=== PATIENT | female | born 1975 | race Hispanic/Latino ===

== ENCOUNTER 2018-11-18 20:33 | Emergency (ER) | payer OTHER, SELFPAY ==
[2018-11-18] MEDS ORDERED: ONDANSETRON 4 MG/2 ML VIAL ONE (21:35)
[2018-11-18] MEDS ORDERED: NA CHLORIDE 0.9% 1,000 ML ONE (21:35)
[2018-11-18] MEDS ORDERED: KETOROLAC 30 MG/ML INJ ONE (21:35)
[2018-11-18 21:40] LABS: Urine Blood 3+ (NEG); Urine Glucose NEGATIVE (NEG); Urine Protein NEGATIVE (NEG); Urine Specific Gravity 1.025 (1.005-1.030)
[2018-11-18 22:13] LABS: Absolute Lymphocytes (CBC) 3.7 K/uL (0.7-4.9); Basophils % 0.5 % (0-1.3); Hematocrit 42.1 % (36.0-45.0); Lymphocytes % 32.9 % (15.3-44.8); MPV 9.9 fL (7.6-11.3); RBC Red Blood Cell Count 4.43 M/uL (3.86-4.86)
[2018-11-18 22:32] LABS: ALT/SGPT 32 U/L (12-78); AST/SGOT 18 U/L (15-37); Albumin 3.9 g/dL (3.4-5.0); Alkaline Phosphatase 107 U/L (45-117); BUN Blood Urea Nitrogen 16 mg/dL (7-18); Bicarbonate 27 mmol/L (21-32); Bilirubin Direct < 0.1 mg/dL (0-0.2); Bilirubin Total 0.2 mg/dL (0.2-1.0); Glucose Level 98 mg/dL (74-106); Lipase 81 U/L (73-393); Protein, Total 7.8 g/dL (6.4-8.2); Sodium Level 140 mmol/L (136-145)
[2018-11-18 22:43] LABS: Urine Bacteria LOADED /HPF (<20); Urine Culture Reflex Order NOT NEEDED
--- NOTE | 2018-11-19 00:18 | EDPHYS ---
Physician Documentation [facility] Name: Becka Lorenzo Age: 43 yrs Sex: Female : 1975 Arrival Date: 11/18/2018 Time: 20:37 Bed 24 Private MD: ED Physician Moncho Aranda HPI: 11/19 00:25 This 43 yrs old Female presents to ER via Ambulatory with complaints of kb Abdominal Pain. 00:25 The patient presents with abdominal pain in the upper abdomen. Onset: The kb symptoms/episode began/occurred 1 week(s) ago, and became worse. The symptoms do not radiate. Associated signs and symptoms: Pertinent positives: nausea and vomiting, Pertinent negatives: anorexia, blood in stools, chest pain, constipation, diarrhea, dysuria, fever, headache, hematuria, palpitations, shortness of breath, vaginal discharge, vomiting blood. The symptoms are described as constant. Modifying factors: The symptoms are alleviated by nothing, the symptoms are aggravated by nothing. Severity of pain: At its worst the pain was moderate in the emergency department the pain has improved mildly. The patient has not experienced similar symptoms in the past. The patient has not recently seen a physician. Pt reports upper abd pain for a week. Reports nausea and vomiting today. . 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 - Social history:: Smoking status: Patient/guardian denies using tobacco. - Ebola Screening: : Patient denies travel to an Ebola-affected area in the 21 days before illness onset. ROS: 11/19 00:25 Constitutional: Negative for fever, chills, and weight loss, ENT: Negative for injury, kb pain, and discharge, Neck: Negative for injury, pain, and swelling, Cardiovascular: Negative for chest pain, palpitations, and edema, Respiratory: Negative for shortness of breath, cough, wheezing, and pleuritic chest pain, Back: Negative for injury and pain, : Negative for injury, bleeding, discharge, and swelling, MS/Extremity: Negative for injury and deformity, Skin: Negative for injury, rash, and discoloration, Neuro: Negative for headache, weakness, numbness, tingling, and seizure. Abdomen/GI: Positive for abdominal pain, nausea and vomiting, Negative for diarrhea, constipation, abdominal cramps, abdominal distension, anorexia. Exam: 00:25 Constitutional: This is a well developed, well nourished patient who is awake, alert, kb and in no acute distress. Head/Face: Normocephalic, atraumatic. ENT: Nares patent. No nasal discharge, no septal abnormalities noted. Tympanic membranes are normal and external auditory canals are clear. Oropharynx with no redness, swelling, or masses, exudates, or evidence of obstruction, uvula midline. Mucous membranes moist. Neck: Trachea midline, no thyromegaly or masses palpated, and no cervical lymphadenopathy. Supple, full range of motion without nuchal rigidity, or vertebral point tenderness. No Meningismus. Chest/axilla: Normal chest wall appearance and motion. Nontender with no deformity. No lesions are appreciated. Cardiovascular: Regular rate and rhythm with a normal S1 and S2. No gallops, murmurs, or rubs. Normal PMI, no JVD. No pulse deficits. Respiratory: Lungs have equal breath sounds bilaterally, clear to auscultation and percussion. No rales, rhonchi or wheezes noted. No increased work of breathing, no retractions or nasal flaring. Back: No spinal tenderness. No costovertebral tenderness. Full range of motion. Skin: Warm, dry with normal turgor. Normal color with no rashes, no lesions, and no evidence of cellulitis. MS/ Extremity: Pulses equal, no cyanosis. Neurovascular intact. Full, normal range of motion. Neuro: Awake and alert, GCS 15, oriented to person, place, time, and situation. Cranial nerves II-XII grossly intact. Motor strength 5/5 in all extremities. Sensory grossly intact. Cerebellar exam normal. Normal gait. 00:25 Abdomen/GI: Inspection: obese Bowel sounds: normal, in all quadrants, Palpation: soft, in all quadrants, mild abdominal tenderness, in the left lower quadrant, moderate abdominal tenderness, in the right upper quadrant and right lower quadrant. Vital Signs: 11/18 20:50 BP 117 / 65; Pulse 83; Resp 18; Temp 97.0; Pulse Ox 96% on R/A; Weight 107.5 kg (R); aj1 Height 5 ft. 2 in. (157.48 cm) (R); Pain 8/10; 23:58 BP 106 / 66; Pulse 66; Resp 16; Temp 98.1; Pulse Ox 99% on R/A; Pain 4/10; ch 11/19 00:38 BP 110 / 72; Pulse 62; Resp 14; Temp 98.1; Pulse Ox 99% on R/A; Pain 2/10; ch 11/18 20:50 Body Mass Index 43.35 (107.50 kg, 157.48 cm) aj1 11/18 23:58 Vitals Checked by Raudel sherwood MDM: 21:19 Patient medically screened. kb 11/19 00:27 Data reviewed: vital signs, nurses notes. Data interpreted: Pulse oximetry: on room air kb is 99 %. Interpretation: normal. Counseling: I had a detailed discussion with the patient and/or guardian regarding: the historical points, exam findings, and any diagnostic results supporting the discharge/admit diagnosis, lab results, radiology results, the need for outpatient follow up, a family practitioner, a family mediator, to return to the emergency department if symptoms worsen or persist or if there are any questions or concerns that arise at home. 11/18 21:32 Order name: Urine Microscopic Only; Complete Time: 22:48 mg2 11/18 21:33 Order name: Basic Metabolic Panel; Complete Time: 22:33 kb 11/18 21:33 Order name: CBC with Diff; Complete Time: 22:16 kb 11/18 21:33 Order name: Hepatic Function; Complete Time: 22:33 kb 11/18 21:33 Order name: Lipase; Complete Time: 22:33 kb 11/18 21:33 Order name: Urine Culture mg2 11/18 21:32 Order name: US Abdomen Limited kb 11/18 21:34 Order name: Urine Dipstick--Ancillary (enter results); Complete Time: 21:41 mw2 11/18 21:34 Order name: Urine --Ancillary (enter results); Complete Time: 21:41 [facility] 11/18 21:55 Order name: CT Abd/Pelvis - IV Contrast Only 11/18 21:33 Order name: IV Saline Lock; Complete Time: 22:02 kb 11/18 21:33 Order name: Labs collected and sent; Complete Time: 22:01 kb Administered Medications: 11/18 22:01 Drug: NS 0.9% 1000 ml Route: IV; Rate: 1000 ml; Site: right forearm; mg2 11/19 00:01 Follow up: IV Status: Completed infusion; IV Intake: 1000ml 11/18 22:01 Drug: Zofran 4 mg Route: IVP; Site: right forearm; mg2 11/19 00:01 Follow up: Response: No adverse reaction 11/18 22:01 Drug: TORadol - Ketorolac 15 mg Route: IVP; Site: right forearm; mg2 11/19 00:01 Follow up: Response: No adverse reaction 00:32 Drug: Macrobid 100 mg Route: PO; 00:32 Follow up: Response: No adverse reaction Disposition: 11/19/18 00:18 Discharged to Home. Impression: Urinary tract infection, site not specified. - Condition is Stable. - Discharge Instructions: Urinary Tract Infection, Adult, [id number]. - Prescriptions for Macrobid 100 mg Oral Capsule - take 1 capsule by ORAL route every 12 hours for 10 days; 20 capsule. - Medication Reconciliation Form, Thank You Letter, Antibiotic Education, Prescription Opioid Use form. - Follow up: Emergency Department; When: As needed; Reason: Worsening of condition. Follow up: Private Physician; When: 2 - 3 days; Reason: Recheck today's complaints, Continuance of care, Re-evaluation by your physician. Signatures: Dispatcher [employer] EDMA Karen Estes, OIL DISPATCHER-C OIL DISPATCHER-Ckb Estela Harrington, RN RN Angie Canas, RN RN aj1 Héctor Gupta RN RN mg2 Corrections: (The following items were deleted from the chart) 00:40 00:18 11/19/2018 00:18 Discharged to Home. Impression: Urinary tract infection, site ch not specified. Condition is Stable. Forms are Medication Reconciliation Form, Thank You Letter, Antibiotic Education, Prescription Opioid Use. Follow up: Emergency Department; When: As needed; Reason: Worsening of condition. Follow up: Private Physician; When: 2 - 3 days; Reason: Recheck today's complaints, Continuance of care, Re-evaluation by your physician. kb
--- NOTE | 2018-11-19 00:18 | ER ---
Nurse's Notes [facility] Name: Becka Lorenzo Age: 43 yrs Sex: Female : 1975 Arrival Date: 11/18/2018 Time: 20:37 Bed 24 Private MD: Diagnosis: Urinary tract infection, site not specified Presentation: 11/18 20:47 Presenting complaint: Patient states: "My stomach started hurting and I get really aj1 nauseated and then I started feeling like I was going to pass out because the pain in my stomach was so excruciating, and I started vomiting then I felt my stomach getting bigger" Reports burning sensation to RUQ, LUQ and epigastric region that started this morning that has gotten progressively worse as the day has gone on. Denies diarrhea. Denies fever . States that her pain is less severe right now that it has been previously. Transition of care: patient was not received from another setting of care. Onset of symptoms was November 18, 2018. Risk Assessment: Do you want to hurt yourself or someone else? Patient reports no desire to harm self or others. Initial Sepsis Screen: Does the patient meet any 2 criteria? No. Patient's initial sepsis screen is negative. Does the patient have a suspected source of infection? Yes: Acute abdominal pain. Care prior to arrival: None. 20:47 Method Of Arrival: Ambulatory aj1 20:47 Acuity: LOW 3 aj1 Triage Assessment: 20:50 General: Appears in no apparent distress. comfortable, Behavior is calm, cooperative, aj1 appropriate for age. Pain: Complains of pain in epigastric area, right upper quadrant and left upper quadrant Pain radiates to right lower quadrant and left lower quadrant Pain currently is 8 out of 10 on a pain scale. Neuro: Level of Consciousness is awake, alert, obeys commands. Cardiovascular: Patient's skin is warm and dry. Respiratory: Airway is patent Respiratory effort is even, unlabored, Respiratory pattern is regular, symmetrical. GI: Reports upper abdominal pain, bloating, nausea, vomiting, Patient currently denies diarrhea. 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 - Social history:: Smoking status: Patient/guardian denies using tobacco. - Ebola Screening: : Patient denies travel to an Ebola-affected area in the 21 days before illness onset. Screenin:19 Abuse screen: Denies threats or abuse. Denies injuries from another. Nutritional mg2 screening: No deficits noted. Tuberculosis screening: No symptoms or risk factors identified. Fall Risk IV access (20 points). Assessment: 23:15 General: Appears in no apparent distress. comfortable, Behavior is calm, cooperative. mg2 Pain: Complains of pain in abdomen Pain does not radiate. Pain currently is 5 out of 10 on a pain scale. Quality of pain is described as aching, Pain began gradually, Is intermittent. Neuro: Level of Consciousness is awake, alert, obeys commands, Oriented to person, place, time, situation. Cardiovascular: Capillary refill < 3 seconds Patient's skin is warm and dry. Respiratory: Airway is patent Respiratory effort is even, unlabored, Respiratory pattern is regular, symmetrical. GI: No signs and/or symptoms were reported involving the gastrointestinal system. Bowel sounds present X 4 quads. Abd is soft and non tender X 4 quads. : Urine is see urine dip. EENT: No signs and/or symptoms were reported regarding the EENT system. Derm: Skin is intact, is healthy with good turgor, Skin is pink, warm \\T\\ dry. normal. Musculoskeletal: Circulation, motion, and sensation intact. Capillary refill < 3 seconds. 23:58 Reassessment: Patient appears in no apparent distress at this time. Patient and/or ch family updated on plan of care and expected duration. Pain level reassessed. Patient is alert, oriented x 3, equal unlabored respirations, skin warm/dry/pink. Patient states feeling better. Patient states symptoms have improved. 11/19 00:38 Reassessment: Patient appears in no apparent distress at this time. Patient and/or ch family updated on plan of care and expected duration. Pain level reassessed. Patient is alert, oriented x 3, equal unlabored respirations, skin warm/dry/pink. Patient states feeling better. Patient states symptoms have improved. Vital Signs: 11/18 20:50 BP 117 / 65; Pulse 83; Resp 18; Temp 97.0; Pulse Ox 96% on R/A; Weight 107.5 kg (R); aj1 Height 5 ft. 2 in. (157.48 cm) (R); Pain 8/10; 23:58 BP 106 / 66; Pulse 66; Resp 16; Temp 98.1; Pulse Ox 99% on R/A; Pain 4/10; ch 11/19 00:38 BP 110 / 72; Pulse 62; Resp 14; Temp 98.1; Pulse Ox 99% on R/A; Pain 2/10; ch 11/18 20:50 Body Mass Index 43.35 (107.50 kg, 157.48 cm) [facility] 11/18 23:58 Vitals Checked by Raudel sherwood ED Course: 20:37 Patient arrived in ED. ds1 20:50 Triage completed. aj1 20:50 Arm band placed on Patient placed in waiting room, Patient notified of wait time. aj1 21:18 Karen Estes FNP-C [facility]. kb 21:18 Moncho Aranda MD is Attending Physician. kb 21:21 Héctor Gupta, EREN is Primary Nurse. mg2 21:55 US Abdomen Limited In Process Unspecified. EDMS 22:07 Radiology exam delayed due to lab results not completed at this time. (BUN/Creatinine). vm2 23:20 Patient has correct armband on for positive identification. mg2 23:20 No provider procedures requiring assistance completed. Inserted saline lock: 20 gauge mg2 in right antecubital area, using aseptic technique. Blood collected. 23:48 CT Abd/Pelvis - IV Contrast Only In Process Unspecified. EDMS 23:58 No apparent distress. Resting quietly. awaiting ct results. 23:58 Pulse ox on. NIBP on. Warm blanket given. 08 00:38 No apparent distress. Resting quietly. 00:38 IV discontinued, intact, bleeding controlled, No redness/swelling at site. Pressure dressing applied. Administered Medications: 11/18 22:01 Drug: NS 0.9% 1000 ml Route: IV; Rate: 1000 ml; Site: right forearm; mg2 11/19 00:01 Follow up: IV Status: Completed infusion; IV Intake: 1000ml 11/18 22:01 Drug: Zofran 4 mg Route: IVP; Site: right forearm; mg2 11/19 00:01 Follow up: Response: No adverse reaction 11/18 22:01 Drug: TORadol - Ketorolac 15 mg Route: IVP; Site: right forearm; mg2 11/19 00:01 Follow up: Response: No adverse reaction 00:32 Drug: Macrobid 100 mg Route: PO; 00:32 Follow up: Response: No adverse reaction Intake: 00:01 IV: 1000ml; Total: 1000ml. Outcome: 00:18 Discharge ordered by . francis 00:38 Discharged to home ambulatory, with family. 00:38 Condition: improved 00:38 Discharge instructions given to patient, family, Instructed on discharge instructions, follow up and referral plans. Demonstrated understanding of instructions, follow-up care, medications, Prescriptions given X 1. 00:40 Patient left the ED. Addendum: 11/21/2018 08:07 Addendum: Culture Results: Positive urine culture. No further action required. Bacteria i w sensitive to prescribed antibiotic. Signatures: Dispatcher [employer] EDMS Karen Estes, SENIOR HARDWARE DESIGN ENGINEER-C SENIOR HARDWARE DESIGN ENGINEER-CkEstela Chavez, RN RN Angie Canas RN RN ajDea Traylor ds1 Sera Carreno RN RN Caroline Salas Michele, RN RN mg2
[2018-11-19] MEDS ORDERED: NITROFURAN MACRO 100 MG CAP PO ONE (00:33)
[2018-11-19 01:42] VITALS: TEMP 98.1; O2SAT 99
[2018-11-19 01:44] VITALS: BP 110/72
--- NOTE | 2018-11-19 08:59 | RAD REPORT ---
EXAM DESCRIPTION: US - Abdomen Exam Limited - 11/18/2018 9:54 pm CLINICAL HISTORY: Abdominal pain. COMPARISON: None. FINDINGS: The gallbladder is not well distended limiting evaluation somewhat. The gallbladder wall is not thickened. A gallstone is not seen. The biliary tree is normal caliber. IMPRESSION: No abnormality displayed
--- NOTE | 2018-11-22 15:10 | RAD REPORT ---
EXAM DESCRIPTION: CT - Abdomen Pelvis W Contrast - 11/18/2018 11:47 pm CLINICAL HISTORY: The patient is 43 years old and is Female; ABD PAIN TECHNIQUE: Axial computed tomography images of the abdomen and pelvis with intravenous contrast. S agittal and coronal reformatted images were created and reviewed. This CT exam was performed using one or more of the following dose reduction techniques: automated exposure control, adjustment of t he mA and/or kV according to patient size, and/or use of iterative reconstruction technique. COMPARISON: CT of the abdomen and pelvis January 24, 2016. FINDINGS: LUNG BASES: Unremarkable. No mass. No consolidation. ABDOMEN: LIVER: A 0.8 cm low attenuating lesion within the right hepatic lobe suggestive of cysts is pres ent. This is unchanged from prior exam. No follow-up is recommended. GALLBLADDER AND BILE DUCTS: No calcified stones. No ductal dilation. PANCREAS: No ductal dilation. No mass. SPLEEN: Unremarkable. ADRENALS: Unremarkable. No mass. KIDNEYS AND URETERS: Punctate left intrarenal calcifications are present. Punctate right intrare nal calcification is noted. There is no hydronephrosis or hydroureter of either kidney. The kidneys e nhance symmetrically. STOMACH AND BOWEL: The stomach is decompressed. The small bowel is normal in caliber. Stool is p resent throughout the colon. There is no mucosal thickening or evidence of bowel obstruction. PELVIS: APPENDIX: The appendix is normal in caliber without surrounding inflammation. BLADDER: The bladder is not well distended. REPRODUCTIVE: Unremarkable as visualized. ABDOMEN and PELVIS: INTRAPERITONEAL SPACE: Unremarkable. No free air. No significant fluid collection. BONES/JOINTS: No acute fracture. SOFT TISSUES: The soft tissues are normal. VASCULATURE: Unremarkable. No abdominal aortic aneurysm. LYMPH NODES: Unremarkable. No enlarged lymph nodes. IMPRESSION: 1. Bilateral nephrolithiasis without obstruction. 2. Normal appendix. No bowel obstruction. Electronically signed by: Taylor Blood MD 11/18/2018 11:55 PM CDT Due to temporary technical issues with the PACS/Fluency reporting system, reports are being signed by the in house radiologist as a courtesy to ensure prompt reporting. The interpreting radiologist is f ully responsible for the content of the report.
== END 2018-11-19 00:40 | disposition home or self-care (01) ==
LOC: ER 20:33
DX: N39.0 Urinary tract infection, site not specified (principal); Z88.5 Allergy status to narcotic agent
CPT/HCPCS: 36415; 74177; 76705; 80048; 80076; 81003; 81015; 81025; 83690; 85025; 87077; 87086; 87088; 87186; 96361; 96374; 96375; 99284; J2405; J7030; Q9967

== ENCOUNTER 2019-04-20 05:03 | Emergency (ER) | payer BC, SELFPAY ==
[2019-04-20 05:52] LABS: Absolute Lymphocytes (CBC) 3.6 K/uL (0.7-4.9); Basophils % 0.6 % (0-1.3); Hematocrit 40.9 % (36.0-45.0); Lymphocytes % 31.4 % (15.3-44.8); RBC Red Blood Cell Count 4.38 M/uL (3.86-4.86)
[2019-04-20] MEDS ORDERED: FAMOTIDINE 20 MG/2 ML VIAL IV ONE (05:53)
[2019-04-20 05:57] LABS: ALT/SGPT 28 U/L (12-78); AST/SGOT 17 U/L (15-37); Albumin 3.9 g/dL (3.4-5.0); Alkaline Phosphatase 97 U/L (45-117); BUN Blood Urea Nitrogen 20 mg/dL (7-18); Bicarbonate 25 mmol/L (21-32); Bilirubin Direct < 0.1 mg/dL (0-0.2); Bilirubin Total 0.2 mg/dL (0.2-1.0); Glucose Level 111 mg/dL (74-106); Lipase 84 U/L (73-393); Potassium 4.1 mmol/L (3.5-5.1); Protein, Total 7.9 g/dL (6.4-8.2); Sodium Level 138 mmol/L (136-145)
[2019-04-20 07:13] LABS: Urine Blood NEGATIVE (NEG); Urine Glucose NEGATIVE (NEG); Urine Protein NEGATIVE (NEG); Urine pH 5.5 (5.0-7.0)
--- NOTE | 2019-04-20 07:41 | RAD REPORT ---
EXAM DESCRIPTION: CT - Abdomen Pelvis W Contrast - 04/20/2019 6:38 am CLINICAL HISTORY: ABD PAIN, right lower quadrant pain Reporting was delayed due to technical difficulties with the overnight radiology service COMPARISON: CT study November 18 TECHNIQUE: Biphasic, helical CT imaging of the abdomen and pelvis was performed following 100 ml non -ionic IV contrast. No oral contrast administered. All CT scans are performed using dose optimization technique as appropriate and may include automated exposure control or mA/KV adjustment according to patient size. FINDINGS: No suspicious findings in the lung bases. The liver, spleen, and pancreas show no suspicious findings. Gallbladder and biliary tree are also wi thout suspicious finding. Symmetric renal function is seen with no hydronephrosis or suspicious renal mass. Bilateral nonobstru cting calculi again noted. No pyelonephritis or acute parenchymal process. No bladder abnormalities. No adrenal abnormalities. No dilated bowel loops or bowel wall thickening. The appendix is normal. There are no acute GI findin gs identifiable. No free air, free fluid or inflammatory stranding. No hernia, mass or bulky lymphad enopathy. Uterus and ovaries show no suspicious findings. No suspicious bony findings. Motion degradation limits many of the images. IMPRESSION: No appendicitis or other acute GI finding. No acute or GIFT OFFICER process. No abnormality seen that would explain the right lower quadrant pain megan manny. No suspicious changes from the November 18 study.
--- NOTE | 2019-04-20 09:02 | ER ---
Nurse's Notes [facility] Name: Becka Lorenzo Age: 43 yrs Sex: Female : 1975 Arrival Date: 04/20/2019 Time: 05:05 Bed 19 Private MD: Diagnosis: Upper abdominal pain, unspecified Presentation: 04/20 05:17 Presenting complaint: Patient states: she has been having a variety of symptoms after bb her three weeks ago she can't sleep but tonight she started having burning in her stomach after drinking a "cup" of crown and she is having right lower abdominal pain. Transition of care: patient was not received from another setting of care. Onset of symptoms was March 26, 2019. Risk Assessment: Do you want to hurt yourself or someone else? Patient reports no desire to harm self or others. Initial Sepsis Screen: Does the patient meet any 2 criteria? No. Patient's initial sepsis screen is negative. Does the patient have a suspected source of infection? No. Patient's initial sepsis screen is negative. Care prior to arrival: None. 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 - Social history:: Smoking status: Patient/guardian denies using tobacco, Patient uses alcohol, occasionally. - Ebola Screening: : No symptoms or risks identified at this time. Screenin:20 Abuse screen: Denies threats or abuse. Denies injuries from another. Nutritional ca1 screening: No deficits noted. Tuberculosis screening: No symptoms or risk factors identified. Fall Risk IV access (20 points). Assessment: 05:20 General: Appears distressed, comfortable, Behavior is calm, cooperative, appropriate ca1 for age. Pain: Complains of pain in epigastric area, right upper quadrant, left upper quadrant and right lower quadrant Pain currently is 7 out of 10 on a pain scale. Quality of pain is described as burning, Is intermittent. Neuro: Level of Consciousness is awake, alert, obeys commands, Oriented to person, place, time, situation, Appropriate for age. Cardiovascular: Heart tones S1 S2 present Capillary refill < 3 seconds Patient's skin is warm and dry. Respiratory: Airway is patent Respiratory effort is even, unlabored, Respiratory pattern is regular, symmetrical, Breath sounds are clear bilaterally. GI: Abdomen is round non-distended, Bowel sounds present X 4 quads. Abd is soft and non tender X 4 quads. GI: Reports. : No deficits noted. No signs and/or symptoms were reported regarding the genitourinary system. EENT: No deficits noted. No signs and/or symptoms were reported regarding the EENT system. Derm: Skin is intact, is healthy with good turgor, Skin is pink, warm \\T\\ dry. Musculoskeletal: Circulation, motion, and sensation intact. Capillary refill < 3 seconds, Range of motion: intact in all extremities. 06:48 Reassessment: Patient appears in no apparent distress at this time. Patient is alert, ca1 oriented x 3, equal unlabored respirations, skin warm/dry/pink. 06:59 Reassessment: Patient appears in no apparent distress at this time. report received sg from Jonelle JASON, pt is a 43 yr F, c abd pain x 3 months on and off, aa\\T\\ox4 and ambulatory, awaiting results at this time. Vital Signs: 05:20 BP 105 / 53; Pulse 88; Resp 16 S; Temp 98.6(O); Pulse Ox 100% on R/A; Weight 103.42 kg bb (R); Height 5 ft. 10 in. (177.80 cm) (R); Pain 8/10; 06:48 BP 111 / 55; Pulse 67; Resp 17 S; Pulse Ox 95% on R/A; ca1 05:20 Body Mass Index 32.71 (103.42 kg, 177.80 cm) bb ED Course: 05:05 Patient arrived in ED. ds1 05:11 Jonelle Decker RN is Primary Nurse. ca1 05:14 Franc Contreras MD is Attending Physician. kdr 05:20 Triage completed. bb 05:20 Arm band placed on Patient placed in an exam room, on a stretcher, on pulse oximetry. bb Family accompanied patient. 05:20 Patient has correct armband on for positive identification. Placed in gown. Bed in low ca1 position. Call light in reach. Side rails up X 1. Pulse ox on. NIBP on. Warm blanket given. 05:25 No provider procedures requiring assistance completed. Initial lab(s) drawn, by me, ca1 sent to lab. Inserted saline lock: 22 gauge in right forearm, using aseptic technique. Blood collected. 05:56 Urine collected: clean catch specimen, clear, Amount Voided: 90mL. ca1 06:38 CT Abd/Pelvis - IV Contrast Only In Process Unspecified. EDMS 07:34 Primary Nurse role handed off by Jonelle Decker RN bd 08:06 Fabian Martinez, RN is Primary Nurse. sg Administered Medications: 05:51 Drug: Pepcid 20 mg Route: IVP; Site: right forearm; ca1 06:57 Follow up: Response: No adverse reaction; Pain is decreased ca1 Outcome: 09:01 Discharge ordered by . pankaj 09:15 Patient left the ED. sg Signatures: Dispatcher [employer] EDMS Breanne Mederos bd Fabian Martinez, RN RN sg Franc Contreras MD MD kdr Sanford, Demi ds1 Colleen Bryant RN RN bb Tish Kovacs MD MD ma2 Acob, Cheryl, EREN RN ca1
--- NOTE | 2019-04-20 09:03 | EDPHYS ---
Physician Documentation [facility] Name: Becka Lorenzo Age: 43 yrs Sex: Female : 1975 Arrival Date: 04/20/2019 Time: 05:05 Bed 19 Private MD: ED Physician Franc Contreras HPI: 04/20 07:23 This 43 yrs old Female presents to ER via Ambulatory with complaints of kdr Abdominal burning, Pelvic Pain. 07:23 The patient presents with abdominal pain in the epigastric area, right lower quadrant, kdr Right flank. Onset: The symptoms/episode began/occurred acutely, The array of issues have been ongoing since her about three months ago. She has not been evaluated. The symptoms radiate to the right flank. Associated signs and symptoms: Pertinent positives: nausea, Pertinent negatives: blood in stools, chest pain, constipation, diarrhea, dysuria, fever, hematuria, palpitations, shortness of breath, vaginal discharge, vomiting, vomiting blood. The symptoms are described as achy, crampy, dull, intermittent, vague, waxing/waning. Modifying factors: The symptoms are alleviated by nothing, the symptoms are aggravated by nothing. Severity of pain: At its worst the pain was mild moderate just prior to arrival, in the emergency department the pain has improved mildly. The patient has experienced similar episodes in the past, multiple times, but today's symptoms are worse, more painful. The patient has not recently seen a physician. 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 - Social history:: Smoking status: Patient/guardian denies using tobacco, Patient uses alcohol, occasionally. - Ebola Screening: : No symptoms or risks identified at this time. ROS: 07:29 Constitutional: Negative for fever, chills, and weight loss, Eyes: Negative for injury, kdr pain, redness, and discharge, Neck: Negative for injury, pain, and swelling, Cardiovascular: Negative for chest pain, palpitations, and edema, Respiratory: Negative for shortness of breath, cough, wheezing, and pleuritic chest pain, Back: Negative for injury and pain, : Negative for injury, bleeding, discharge, and swelling, MS/Extremity: Negative for injury and deformity, Skin: Negative for injury, rash, and discoloration, Neuro: Negative for headache, weakness, numbness, tingling, and seizure activity. Psych: Negative for depression, anxiety, suicide ideation, homicidal ideation, and hallucinations, Allergy/Immunology: Negative for hives, rash, and allergies, Endocrine: Negative for neck swelling, polydipsia, polyuria, polyphagia, and marked weight changes, Hematologic/Lymphatic: Negative for swollen nodes, abnormal bleeding, and unusual bruising. 07:29 Abdomen/GI: Positive for abdominal pain, nausea, Negative for black/tarry stool, rectal pain, rectal bleeding, bowel incontinence. Exam: 07:29 Constitutional: This is a well developed, well nourished patient who is awake, alert, kdr and in no acute distress. Head/Face: Normocephalic, atraumatic. Eyes: Pupils equal round and reactive to light, extra-ocular motions intact. Lids and lashes normal. Conjunctiva and sclera are non-icteric and not injected. Cornea within normal limits. Periorbital areas with no swelling, redness, or edema. Neck: Trachea midline, no thyromegaly or masses palpated, and no cervical lymphadenopathy. Supple, full range of motion without nuchal rigidity, or vertebral point tenderness. No Meningismus. Chest/axilla: Normal chest wall appearance and motion. Nontender with no deformity. No lesions are appreciated. Cardiovascular: Regular rate and rhythm with a normal S1 and S2. No gallops, murmurs, or rubs. Normal PMI, no JVD. No pulse deficits. Respiratory: Lungs have equal breath sounds bilaterally, clear to auscultation and percussion. No rales, rhonchi or wheezes noted. No increased work of breathing, no retractions or nasal flaring. Back: No spinal tenderness. No costovertebral tenderness. Full range of motion. Skin: Warm, dry with normal turgor. Normal color with no rashes, no lesions, and no evidence of cellulitis. Neuro: Awake and alert, GCS 15, oriented to person, place, time, and situation. Cranial nerves II-XII grossly intact. Motor strength 5/5 in all extremities. Sensory grossly intact. Cerebellar exam normal. Normal gait. Psych: Awake, alert, with orientation to person, place and time. Behavior, mood, and affect are within normal limits. 07:29 Abdomen/GI: Inspection: obese Bowel sounds: active, all quadrants, Palpation: soft, mild abdominal tenderness, in the epigastric area, posterior aspect of right lateral abdomen, anterior aspect of right lateral abdomen and right lower quadrant. Vital Signs: 05:20 BP 105 / 53; Pulse 88; Resp 16 S; Temp 98.6(O); Pulse Ox 100% on R/A; Weight 103.42 kg bb (R); Height 5 ft. 10 in. (177.80 cm) (R); Pain 8/10; 06:48 BP 111 / 55; Pulse 67; Resp 17 S; Pulse Ox 95% on R/A; ca1 05:20 Body Mass Index 32.71 (103.42 kg, 177.80 cm) bb MDM: 09:00 Differential diagnosis: Endometriosis, gastritis, gastroesophageal reflux disease, ma2 pancreatitis. Data reviewed: vital signs, nurses notes. Counseling: I had a detailed discussion with the patient and/or guardian regarding: the historical points, exam findings, and any diagnostic results supporting the discharge/admit diagnosis, the presence of at least one elevated blood pressure reading (>120/80) during this emergency department visit, the need for outpatient follow up. Response to treatment: the patient's symptoms have resolved after treatment. 09:01 Patient medically screened. ma2 04/20 05:14 Order name: Basic Metabolic Panel; Complete Time: 07:04 kdr 04/20 05:14 Order name: CBC with Diff; Complete Time: 07:04 kdr 04/20 05:14 Order name: Creatinine for Radiology; Complete Time: 05:58 kdr 04/20 05:14 Order name: Hepatic Function; Complete Time: 07: kdr 04/20 05:14 Order name: Lipase; Complete Time: 07:04 kdr 04/20 06:07 Order name: Urine Dipstick--Ancillary (enter results) ar5 04/20 05:14 Order name: IV Saline Lock; Complete Time: 05:29 kdr 04/20 05:14 Order name: Labs collected and sent; Complete Time: 05:29 kdr 04/20 05:46 Order name: CT Abd/Pelvis - IV Contrast Only; Complete Time: 08:38 kdr 04/20 06:07 Order name: Urine --Ancillary (enter results) ar5 Administered Medications: 05:51 Drug: Pepcid 20 mg Route: IVP; Site: right forearm; ca1 06:57 Follow up: Response: No adverse reaction; Pain is decreased ca1 Disposition: 04/20/19 09:01 Discharged to Home. Impression: Upper abdominal pain, unspecified. - Condition is Stable. - Discharge Instructions: Abdominal Pain, Adult, [id number], Form - Late to Work or School. - Prescriptions for Ativan 0.5 mg Oral Tablet - take 1 tablet by ORAL route every 8 hours As needed; 20 tablet. Zofran 4 mg Oral Tablet - take 1 tablet by ORAL route every 12 hours As needed; 20 tablet. Pepcid 20 mg Oral Tablet - take 1 tablet by ORAL route once daily for 10 days; 10 tablet. - Work release form, Medication Reconciliation Form, Thank You Letter, Antibiotic Education, Prescription Opioid Use form. - Follow up: Private Physician; When: Tomorrow; Reason: Continuance of care. Signatures: Dispatcher [employer] EDFabian Gresham RN RN sg Franc Contreras MD MD kdr Ballard, Brenda, RN RN bb Tish Kovacs MD MD ma2 Jonelle Decker RN RN ca1 Corrections: (The following items were deleted from the chart) 09:15 09:01 04/20/2019 09:01 Discharged to Home. Impression: Upper abdominal pain, sg unspecified. Condition is Stable. Forms are Work release form, Medication Reconciliation Form, Thank You Letter, Antibiotic Education, Prescription Opioid Use. Follow up: Private Physician; When: Tomorrow; Reason: Continuance of care. ma2
[2019-04-20 09:23] VITALS: TEMP 98.6
[2019-04-20 09:24] VITALS: BP 111/55; O2SAT 95
== END 2019-04-20 09:15 | disposition home or self-care (01) ==
LOC: ER 05:03
DX: R10.10 Upper abdominal pain, unspecified (principal); R11.0 Nausea; Z88.1 Allergy status to other antibiotic agents; Z88.5 Allergy status to narcotic agent
CPT/HCPCS: 85025; 80048; 36415; 81025; 80076; 81003; 83690; 74177; 96374; 99284; Q9967

== ENCOUNTER 2019-05-13 18:47 | Emergency (ER) | payer BC ==
[2019-05-13 20:13] LABS: Urine Blood TRACE (NEG); Urine Glucose NEGATIVE (NEG); Urine Protein NEGATIVE (NEG)
--- NOTE | 2019-05-13 20:20 | RAD REPORT ---
EXAM DESCRIPTION: RAD - Chest Single View - 05/13/2019 7:54 pm CLINICAL HISTORY: CHEST PAIN COMPARISON: Chest Pa And Lat (2 Views) dated 09/13/2015; CHEST SINGLE VIEW dated 02/16/2015 TECHNIQUE: AP portable chest image was obtained 05/13/2019 7:54 pm . FINDINGS: Lungs are clear. Heart and vasculature are normal. No measurable pleural effusion and no p neumothorax. No acute bony abnormality seen. No acute aortic findings suspected. IMPRESSION: No acute cardiopulmonary process.
[2019-05-13 20:32] LABS: Absolute Lymphocytes (CBC) 2.6 K/uL (0.7-4.9); Basophils % 0.3 % (0-1.3); Hematocrit 42.8 % (36.0-45.0); Lymphocytes % 26.2 % (15.3-44.8); MPV 9.6 fL (7.6-11.3); RBC Red Blood Cell Count 4.55 M/uL (3.86-4.86)
[2019-05-13 20:33] LABS: Protime INR 1.06
[2019-05-13] MEDS ORDERED: LORazepam 2 MG/ML VIAL ONE (20:36)
[2019-05-13 20:44] LABS: ALT/SGPT 49 U/L (12-78); AST/SGOT 20 U/L (15-37); Albumin 3.8 g/dL (3.4-5.0); Alkaline Phosphatase 98 U/L (45-117); BUN Blood Urea Nitrogen 9 mg/dL (7-18); Bicarbonate 27 mmol/L (21-32); Bilirubin Direct < 0.1 mg/dL (0-0.2); Bilirubin Total 0.3 mg/dL (0.2-1.0); Glucose Level 88 mg/dL (74-106); Magnesium 2.2 mg/dL (1.8-2.4); NT PRO-BNP 86 pg/mL (<125); Potassium 3.7 mmol/L (3.5-5.1); Protein, Total 7.8 g/dL (6.4-8.2); Sodium Level 140 mmol/L (136-145); Troponin (Emerg Dept Use Only) < 0.02 ng/mL (0.0-0.045)
--- NOTE | 2019-05-13 21:51 | ER ---
Nurse's Notes [facility] Name: Becka Lorenzo Age: 43 yrs Sex: Female : 1975 Arrival Date: 05/13/2019 Time: 18:50 Bed 13 Private MD: Diagnosis: Other chest pain Presentation: 05/13 18:55 Presenting complaint: Patient states: "my about 4 days ago and I've aa5 been having anxiety since then but I've been trying to manage it by myself". Pt states "my TAPEMAN prescribed me excitalopram and I took it for the first time today around 8am and as the day is going by I think it made me more anxious instead of helping me". Pt states "my stomach hurts and my chest hurts". Transition of care: patient was not received from another setting of care. Onset of symptoms was May 13, 2019. Risk Assessment: Do you want to hurt yourself or someone else? Patient reports no desire to harm self or others. Initial Sepsis Screen: Does the patient meet any 2 criteria? No. Patient's initial sepsis screen is negative. Does the patient have a suspected source of infection? No. Patient's initial sepsis screen is negative. Care prior to arrival: None. 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 - Coronavirus screen:: The patient has NOT traveled to [place], [place], or [place] in the past 14 days. The patient has NOT had contact with known/suspected case of Coronavirus?. - Social history:: Smoking status: Patient denies any tobacco usage or history of. Patient/guardian denies using street drugs. - Ebola Screening: : No symptoms or risks identified at this time. Screenin:30 Abuse screen: Denies threats or abuse. Denies injuries from another. Nutritional aj1 screening: No deficits noted. Tuberculosis screening: No symptoms or risk factors identified. 22:08 Fall Risk None identified. iw Assessment: 19:30 General: Appears in no apparent distress. comfortable, Behavior is cooperative, aj1 anxious. Pain: Complains of pain in chest Pain radiates to abdomen Pain currently is 5 out of 10 on a pain scale. Quality of pain is described as pressure, Pain began today. Neuro: Level of Consciousness is awake, alert, obeys commands, Oriented to person, place, time, situation, Speech is normal, Facial symmetry appears normal. Cardiovascular: Reports chest pain, Heart tones S1 S2 present Patient's skin is warm and dry. Respiratory: Airway is patent Respiratory effort is even, unlabored, Respiratory pattern is regular, symmetrical, Breath sounds are clear bilaterally. Denies cough, shortness of breath. GI: No signs and/or symptoms were reported involving the gastrointestinal system. : No signs and/or symptoms were reported regarding the genitourinary system. EENT: No signs and/or symptoms were reported regarding the EENT system. Derm: No signs and/or symptoms reported regarding the dermatologic system. Skin is pink, warm \\T\\ dry. normal. Musculoskeletal: No signs and/or symptoms reported regarding the musculoskeletal system. Circulation, motion, and sensation intact. 20:30 Reassessment: Patient appears in no apparent distress at this time. No changes from aj1 previously documented assessment. Patient and/or family updated on plan of care and expected duration. Pain level reassessed. Patient is alert, oriented x 3, equal unlabored respirations, skin warm/dry/pink. 21:05 Reassessment: Patient given IV Ativan, states that she feels like the pressure has been aj1 lifted off of her chest, states that she feels much better\\E\\. Vital Signs: 18:57 BP 111 / 53; Pulse 89; Resp 18 S; Temp 97.9(TE); Pulse Ox 97% on R/A; Weight 99.34 kg aa5 (R); Height 5 ft. 2 in. (157.48 cm) (R); Pain 6/10; 20:00 BP 116 / 75; Pulse 92; Resp 18; Pulse Ox 97% ; aj1 21:00 BP 110 / 52; Pulse 74; Resp 19; Pulse Ox 100% on R/A; aj1 18:57 Body Mass Index 40.06 (99.34 kg, 157.48 cm) aa5 ED Course: 18:50 Patient arrived in ED. ag5 18:57 Triage completed. aa5 18:57 Arm band placed on. aa5 19:30 Patient has correct armband on for positive identification. Bed in low position. Call aj1 light in reach. Side rails up X 1. Family at bedside. certified credit counselor on. Pulse ox on. NIBP on. 19:30 No provider procedures requiring assistance completed. Patient maintains SpO2 aj1 saturation greater than 95% on room air. 19:32 Angie Canas, RN is Primary Nurse. aj1 19:36 Edward العلي PA is PHCP. cp 19:36 Edward Casarez MD is Attending Physician. cp 19:54 XRAY Chest (1 view) In Process Unspecified. EDMS 20:10 Inserted saline lock: 22 gauge in right antecubital area, using aseptic technique. Blood collected. 21:58 Primary Nurse role handed off by Angie Canas RN iw 21:58 Sera Carreno, EREN is Primary Nurse. iw 22:08 IV discontinued, intact, bleeding controlled, No redness/swelling at site. Pressure iw dressing applied. Administered Medications: 20:53 Drug: Ativan 0.5 mg Route: IVP; Site: right antecubital; aj1 22:09 Follow up: Response: No adverse reaction iw Outcome: 21:50 Discharge ordered by MD. cp 22:08 Discharged to home ambulatory. iw 22:08 Condition: good 22:08 Discharge instructions given to patient, family, Instructed on discharge instructions, follow up and referral plans. medication usage, Demonstrated understanding of instructions, follow-up care, medications, Prescriptions given X 1. 22:10 Patient left the ED. iw Signatures: Dispatcher [employer] EDMS Angie Canas, RN RN aj1 Sera Carreno RN RN iw Katelyn Rizzo RN RN aa5 Edward العلي PA PA cp [place], Winsy Carey Macias [facility] Corrections: (The following items were deleted from the chart) 18:59 18:55 Presenting complaint: Patient states: "my about 4 days ago aa5 and I've been having anxiety since then but I've been trying to manage it by myself". Pt states "my TAPEMAN prescribed me excitalopram and I took it for the first time today around 8am and as the day is going by I think it made me more anxious instead of helping me". aa5
--- NOTE | 2019-05-13 21:51 | EDPHYS ---
Physician Documentation [facility] Name: Becka Lorenzo Age: 43 yrs Sex: Female : 1975 Arrival Date: 05/13/2019 Time: 18:50 Bed 13 Private MD: ED Physician Edward Casarez HPI: 05/13 19:45 This 43 yrs old Female presents to ER via Ambulatory with complaints of cp Anxiety. 19:45 The patient or guardian reports chest pain that is located primarily in the anterior cp chest wall, bilaterally. Onset: today. The pain does not radiate. 19:45 The chest pain is described as a heaviness. cp 19:45 Associated signs and symptoms: Pertinent positives: abdominal pain, palpitations. cp Duration: The patient or guardian reports a single episode, that is still ongoing, and unchanged. Patient reports she was prescribed escitalopram 10 mg and took first dose today, shortly afterward she started having chest heaviness and feeling like heart was skipping beats. 19:45 Patient reports she has been suffering from anxiety since passing of 4 months cp ago. 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 - Coronavirus screen:: The patient has NOT traveled to [place], [place], or [place] in the past 14 days. The patient has NOT had contact with known/suspected case of Coronavirus?. - Social history:: Smoking status: Patient denies any tobacco usage or history of. Patient/guardian denies using street drugs. - Ebola Screening: : No symptoms or risks identified at this time. ROS: 19:50 Constitutional: Negative for body aches, chills, fever. cp 19:50 Eyes: Negative for injury, pain, redness, and discharge. cp 19:50 ENT: Negative for drainage from ear(s), ear pain, sore throat, difficulty swallowing, difficulty handling secretions. 19:50 Cardiovascular: Positive for palpitations, chest heaviness, Negative for edema. 19:50 Respiratory: Negative for cough, wheezing. 19:50 Abdomen/GI: Positive for abdominal pain, of the upper abdomen, Negative for vomiting, diarrhea, constipation. 19:50 Back: Negative for radiated pain. 19:50 Skin: Negative for rash. 19:50 Neuro: Negative for altered mental status, dizziness, headache, syncope, weakness. 19:50 Psych: Positive for anxiety, Negative for depression, suicide gesture, suicidal ideation. 19:50 All other systems are negative. Exam: 20:00 Constitutional: The patient appears in no acute distress, alert, awake, cp non-diaphoretic, non-toxic, well developed, well nourished, obese. 20:00 Head/Face: Normocephalic, atraumatic. cp 20:00 Eyes: Periorbital structures: appear normal, Pupils: equal, round, and reactive to cp light and accomodation, Extraocular movements: intact throughout, Conjunctiva: normal, no exudate, no injection, Sclera: no appreciated abnormality, Lids and lashes: appear normal, bilaterally. 20:00 ENT: External ear(s): are unremarkable, Nose: is normal, Mouth: is normal, Posterior pharynx: is normal, airway is patent, no erythema, no exudate. 20:00 Chest/axilla: Inspection: normal, Palpation: is normal, no crepitus, no tenderness. 20:00 Cardiovascular: Rate: normal, Rhythm: regular, Heart sounds: murmur, not appreciated, Edema: is not appreciated, JVD: is not appreciated. 20:00 Respiratory: the patient does not display signs of respiratory distress, Respirations: normal, no use of accessory muscles, no retractions, no splinting, no tachypnea, labored breathing, is not present, Breath sounds: are clear throughout, no decreased breath sounds, no stridor, no wheezing. 20:00 Abdomen/GI: Inspection: abdomen appears normal, Bowel sounds: active, all quadrants, cp Palpation: abdomen is soft and non-tender, in all quadrants, voluntary guarding, is not appreciated, involuntary guarding, is not appreciated. 20:00 Back: pain, is absent, ROM is normal. 20:00 Skin: no rash present. 20:00 Neuro: Orientation: to person, place \T\ time. Mentation: is normal, Motor: moves all fours, strength is normal, Sensation: is normal. 20:33 ECG was reviewed by the Attending Physician. cp Vital Signs: 18:57 BP 111 / 53; Pulse 89; Resp 18 S; Temp 97.9(TE); Pulse Ox 97% on R/A; Weight 99.34 kg aa5 (R); Height 5 ft. 2 in. (157.48 cm) (R); Pain 6/10; 20:00 BP 116 / 75; Pulse 92; Resp 18; Pulse Ox 97% ; aj1 21:00 BP 110 / 52; Pulse 74; Resp 19; Pulse Ox 100% on R/A; aj1 18:57 Body Mass Index 40.06 (99.34 kg, 157.48 cm) aa5 MDM: 19:38 Patient medically screened. cp 21:50 The patient was not given aspirin in the Emergency Department. cp 21:50 Data reviewed: vital signs, nurses notes, lab test result(s), EKG, radiologic studies, cp plain films. Test interpretation: by ED physician or midlevel provider: ECG, plain radiologic studies. Response to treatment: the patient's symptoms have markedly improved after treatment. ED course: VSS. Patient reports symptoms markedly improved. Will discharge to home for continued monitoring. 05/13 19:37 Order name: Basic Metabolic Panel; Complete Time: 21:06 cp 05/13 19:37 Order name: CBC with Diff; Complete Time: 21:06 cp 05/13 19:37 Order name: LFT's; Complete Time: 21:06 cp 05/13 19:37 Order name: Magnesium; Complete Time: 21:06 cp 05/13 19:37 Order name: NT PRO-BNP; Complete Time: 21:06 cp 05/13 19:37 Order name: PT-INR; Complete Time: 21:06 cp 05/13 19:37 Order name: Troponin (emerg Dept Use Only); Complete Time: 21:06 cp 05/13 19:37 Order name: XRAY Chest (1 view); Complete Time: 21:06 cp 05/13 19:37 Order name: EKG; Complete Time: 19:39 cp 05/13 19:37 Order name: Cardiac monitoring; Complete Time: 20:18 cp 05/13 19:37 Order name: EKG - Nurse/Tech; Complete Time: 20:35 cp 05/13 19:58 Order name: Urine Dipstick--Ancillary (enter results); Complete Time: 21:06 sp 05/13 19:58 Order name: Test Urine - POC; Complete Time: 21:06 sp 05/13 19:37 Order name: IV Saline Lock; Complete Time: 20:17 cp 05/13 19:37 Order name: Labs collected and sent; Complete Time: 20:17 cp 05/13 19:37 Order name: O2 Per Protocol; Complete Time: 20:17 cp 05/13 19:37 Order name: O2 Sat Monitoring; Complete Time: 20:17 cp 05/13 19:38 Order name: Urine Dipstick-Ancillary (obtain specimen); Complete Time: 19:56 cp 05/13 19:38 Order name: Urine Test (obtain specimen); Complete Time: 19:56 cp EC:33 Rate is 73 beats/min. Rhythm is regular. GA interval is normal. QRS interval is normal. cp QT interval is normal. T waves are Inverted in leads V2, V3. Interpreted by me. Reviewed by me. Administered Medications: 20:53 Drug: Ativan 0.5 mg Route: IVP; Site: right antecubital; aj1 22:09 Follow up: Response: No adverse reaction iw Disposition: 05/14 02:32 Co-signature as Attending Physician, Edward Casarez MD I agree with the assessment and nancy plan of care. Disposition: 05/13/19 21:50 Discharged to Home. Impression: Other chest pain. - Condition is Stable. - Discharge Instructions: Nonspecific Chest Pain, Aspirin and Your Heart. - Prescriptions for Ativan 0.5 mg Oral Tablet - take 1 tablet by ORAL route every 8 hours As needed; 20 tablet. - Medication Reconciliation Form, Thank You Letter, Antibiotic Education, Prescription Opioid Use form. - Follow up: Private Physician; When: 2 - 3 days; Reason: Recheck today's complaints. - Problem is new. - Symptoms have improved. Signatures: Dispatcher [employer] Angie Mcconnell RN RN aj1 Edward Casarez MD MD cha Williams, Irene, RN RN iw Calderon, Audri RN RN aa5 Edward العلي PA PA cp Corrections: (The following items were deleted from the chart) 05/13 22:10 21:50 05/13/2019 21:50 Discharged to Home. Impression: Other chest pain. Condition is iw Stable. Forms are Medication Reconciliation Form, Thank You Letter, Antibiotic Education, Prescription Opioid Use. Follow up: Private Physician; When: 2 - 3 days; Reason: Recheck today's complaints. Problem is new. Symptoms have improved. cp 23:20 19:50 This 43 yrs old Female presents to ER via Ambulatory with complaints of cp Anxiety. cp
[2019-05-13 22:15] VITALS: TEMP 97.9
[2019-05-13 22:18] VITALS: BP 110/52; O2SAT 100
--- NOTE | 2019-05-14 23:16 | EKG ---
Test Date: 2019-05-13 Test Time: 20:26:23 [employer] Agent: YANDEL MEASUREMENT RESULTS: Intervals: Rate: 73 CA: 150 QRSD: 74 QT: 416 QTc: 458 [place]: P: 56 CA: 150 QRS: 50 T: 28 INTERPRETIVE STATEMENTS: Normal sinus rhythm with sinus arrhythmia Normal ECG Compared to ECG 12/19/2010 16:49:33 Sinus bradycardia no longer present Electronically Signed On 05-14-19 23:15:13 [employer]INE [employer] SURVEYOR by Nahun Jaquez
== END 2019-05-13 22:10 | disposition home or self-care (01) ==
LOC: ER 18:47
DX: R07.89 Other chest pain (principal); Z88.1 Allergy status to other antibiotic agents; Z88.6 Allergy status to analgesic agent
CPT/HCPCS: 36415; 71045; 80048; 80076; 81003; 81025; 83735; 83880; 84484; 85025; 85610; 93005; 96374; 99285

== ENCOUNTER 2019-10-25 16:24 | Emergency (ER) | payer BC, OTHER ==
[2019-10-25] MEDS ORDERED: NA CHLORIDE 0.9% 1,000 ML ONE (17:43)
[2019-10-25 18:08] LABS: Absolute Lymphocytes (CBC) 2.4 K/uL (0.7-4.9); Basophils % 0.6 % (0-1.3); Hematocrit 42.4 % (36.0-45.0); Lymphocytes % 26.8 % (15.3-44.8); MPV 9.4 fL (7.6-11.3); RBC Red Blood Cell Count 4.51 M/uL (3.86-4.86)
[2019-10-25 18:22] LABS: ALT/SGPT 39 U/L (12-78); AST/SGOT 21 U/L (15-37); Albumin 3.6 g/dL (3.4-5.0); Alkaline Phosphatase 87 U/L (45-117); BUN Blood Urea Nitrogen 11 mg/dL (7-18); Bicarbonate 26 mmol/L (21-32); Bilirubin Direct 0.1 mg/dL (0-0.2); Bilirubin Total 0.4 mg/dL (0.2-1.0); Glucose Level 98 mg/dL (74-106); Lipase 87 U/L (73-393); Potassium 3.3 mmol/L (3.5-5.1); Protein, Total 7.6 g/dL (6.4-8.2); Sodium Level 139 mmol/L (136-145)
--- NOTE | 2019-10-25 19:13 | ER ---
Nurse's Notes [facility] Name: Becka Lorenzo Age: 44 yrs Sex: Female : 1975 Arrival Date: 10/25/2019 Time: 16:29 Bed 16 Private MD: Arnaud James Diagnosis: Shortness of breath;SARS-associated coronavirus as the cause of diseases classified elsewhere Presentation: 10/24 16:38 Chief complaint: Patient states: I started really weak and extremely tired about 2 ca1 weeks ago. I tested positive for COVID on the . I started feeling better. But today, I started feeling SOB, weak again like I was going to pass out. . Reports N/V/Diarrhea and persistent cough. Coronavirus screen: Surgical mask placed on patient. Patient moved to private room, placed in contact and droplet isolation with eye protection until further assessment. Patient reports a cough. Patient reports shortness of breath or difficulty breathing. Patient denies measured and/or subjective temperature greater than 100.4F prior to today's visit. Patient denies travel on a cruise ship or to a country the [facility] currently lists as an affected area. Patient reports contact with known and/or suspected case of COVID-19. Boss was positive 2 wks prior to testing positive. Ebola Screen: Patient negative for fever greater than or equal to 101.5 degrees Fahrenheit, and additional compatible Ebola Virus Disease symptoms Patient denies exposure to infectious person. Patient denies travel to an Ebola-affected area in the 21 days before illness onset. No symptoms or risks identified at this time. Initial Sepsis Screen: Does the patient meet any 2 criteria? No. Patient's initial sepsis screen is negative. Does the patient have a suspected source of infection? No. Patient's initial sepsis screen is negative. Risk Assessment: Do you want to hurt yourself or someone else? Patient reports no desire to harm self or others. Onset of symptoms was October 25, 2019. 16:38 Method Of Arrival: Ambulatory ca1 16:38 Acuity: LOW 3 ca1 Triage Assessment: 17:26 General: Appears in no apparent distress. comfortable. Pain: Complains of pain in ls4 general Pain currently is 0 out of 10 on a pain scale. Noted to be flacc 0. 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 - Social history:: Smoking status: Patient denies any tobacco usage or history of. Screenin:27 Abuse screen: Denies threats or abuse. Denies injuries from another. Nutritional ls4 screening: No deficits noted. Tuberculosis screening: No symptoms or risk factors identified. Fall Risk None identified. Assessment: 16:50 General: Appears uncomfortable, Behavior is calm, cooperative. Pain: Complains of pain ls4 in generalized Pain currently is 3 out of 10 on a pain scale. Neuro: No deficits noted. Cardiovascular: Capillary refill < 3 seconds Patient's skin is warm and dry. Respiratory: Airway is patent Respiratory effort is even, unlabored, Respiratory pattern is regular, Breath sounds are clear bilaterally. GI: No deficits noted. No signs and/or symptoms were reported involving the gastrointestinal system. : No deficits noted. No signs and/or symptoms were reported regarding the genitourinary system. Derm: Skin is pink, warm \T\ dry. Musculoskeletal: No deficits noted. No signs and/or symptoms reported regarding the musculoskeletal system. 18:00 Reassessment: Patient appears in no apparent distress at this time. Patient and/or ls4 family updated on plan of care and expected duration. Pain level reassessed. Patient is alert, oriented x 3, equal unlabored respirations, skin warm/dry/pink. 19:10 Reassessment: Patient appears in no apparent distress at this time. Patient and/or ls4 family updated on plan of care and expected duration. Pain level reassessed. Patient is alert, oriented x 3, equal unlabored respirations, skin warm/dry/pink. Vital Signs: 16:38 BP 112 / 66; Pulse 84; Resp 18 S; Temp 97.7(TE); Pulse Ox 98% on R/A; Weight 88.9 kg ca1 (R); Height 5 ft. 2 in. (157.48 cm) (R); 17:00 BP 116 / 72; Pulse 78; Resp 16; Pulse Ox 99% on R/A; Pain 3/10; ls4 18:00 BP 112 / 70; Pulse 81; Resp 18; Pulse Ox 98% on R/A; Pain 3/10; ls4 19:00 BP 110 / 70; Pulse 79; Resp 18; Pulse Ox 99% on R/A; Pain 3/10; ls4 16:38 Body Mass Index 35.85 (88.90 kg, 157.48 cm) ca1 ED Course: 16:29 Patient arrived in ED. mr 16:29 Arnaud James DO is Private Physician. mr 16:44 Triage completed. ca1 16:44 Arm band placed on right wrist. ca1 16:50 Caren Romero, RN is Primary Nurse. ls4 17:19 Martinez Sepulveda PA is PHCP. jr8 17:19 Ander Prasad MD is Attending Physician. jr8 17:41 XRAY Chest (1 view) In Process Unspecified. EDMS 17:58 Initial lab(s) drawn, by me, sent to lab. Inserted saline lock: 22 gauge in right 5 forearm, using aseptic technique. 17:59 Patient has correct armband on for positive identification. Bed in low position. Call [facility] light in reach. Pulse ox on. NIBP on. 18:00 Lipase Sent. 5 18:00 Hepatic Function Sent. [facility] 18:00 CBC with Diff Sent. 5 18:00 Basic Metabolic Panel Sent. 5 19:12 Arnaud James DO is Referral Physician. jr8 19:27 No provider procedures requiring assistance completed. ls4 19:45 IV discontinued, intact, bleeding controlled, No redness/swelling at site. Pressure ls4 dressing applied. Administered Medications: 18:34 Drug: NS 0.9% 1000 ml Route: IV; Rate: 1000 ml; Site: left forearm; ls4 19:40 Follow up: IV Status: Completed infusion; IV Intake: 1000ml ls4 19:00 Drug: Potassium Chloride 20 mEq Route: PO; ls4 19:26 Follow up: Response: No adverse reaction; Marked relief of symptoms ls4 Intake: 19:40 IV: 1000ml; Total: 1000ml. ls4 Outcome: 19:12 Discharge ordered by . jr8 19:45 Discharged to home ambulatory. ls4 19:45 Condition: stable 19:45 Discharge instructions given to patient, Instructed on discharge instructions, follow up and referral plans. medication usage, Demonstrated understanding of instructions, follow-up care, medications, Prescriptions given X 1. 19:45 Patient left the ED. ls4 Signatures: Dispatcher [employer] EDNM Glenda Moreno mr Martinez Sepulveda PA PA jr8 Hollie Acuna [facility] Caren Romero RN RN ls4 Jonelle Decker RN RN ca1 Corrections: (The following items were deleted from the chart) 19:21 19:21 Potassium Chloride 20 mEq PO ls4 ls4
--- NOTE | 2019-10-25 19:13 | EDPHYS ---
Physician Documentation [facility] Name: Becka Lorenzo Age: 44 yrs Sex: Female : 1975 Arrival Date: 10/25/2019 Time: 16:29 Bed 16 Private MD: Jacob [facility] ED Physician Ander Prasad HPI: 10/24 19:09 This 44 yrs old Female presents to ER via Ambulatory with complaints of jr8 Shorntess of breath. 19:09 Patient stated that she tested positive for covid back on the 11 of October. Had been jr8 recovering but not doing a lot. Stated that today she was going to try and get out. Started to become short of breath. Wanted to be reevaluated at that time . Onset: The symptoms/episode began/occurred acutely, today. Severity of symptoms: At their worst the symptoms were mild in the emergency department the symptoms are unchanged. The patient has not experienced similar symptoms in the past. The patient has not recently seen a physician. 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 - Social history:: Smoking status: Patient denies any tobacco usage or history of. ROS: 19:09 Eyes: Negative for injury, pain, redness, and discharge, ENT: Negative for injury, jr8 pain, and discharge, Neck: Negative for injury, pain, and swelling, Cardiovascular: Negative for chest pain, palpitations, and edema, Abdomen/GI: Negative for abdominal pain, nausea, vomiting, diarrhea, and constipation, Back: Negative for injury and pain, MS/Extremity: Negative for injury and deformity, Skin: Negative for injury, rash, and discoloration, Neuro: Negative for headache, weakness, numbness, tingling, and seizure. 19:09 Respiratory: Positive for dyspnea on exertion, shortness of breath. Exam: 19:09 Eyes: Pupils equal round and reactive to light, extra-ocular motions intact. Lids and jr8 lashes normal. Conjunctiva and sclera are non-icteric and not injected. Cornea within normal limits. Periorbital areas with no swelling, redness, or edema. ENT: Nares patent. No nasal discharge, no septal abnormalities noted. Tympanic membranes are normal and external auditory canals are clear. Oropharynx with no redness, swelling, or masses, exudates, or evidence of obstruction, uvula midline. Mucous membranes moist. Neck: Trachea midline, no thyromegaly or masses palpated, and no cervical lymphadenopathy. Supple, full range of motion without nuchal rigidity, or vertebral point tenderness. No Meningismus. Cardiovascular: Regular rate and rhythm with a normal S1 and S2. No gallops, murmurs, or rubs. Normal PMI, no JVD. No pulse deficits. Respiratory: Lungs have equal breath sounds bilaterally, clear to auscultation and percussion. No rales, rhonchi or wheezes noted. No increased work of breathing, no retractions or nasal flaring. Abdomen/GI: Soft, non-tender, with normal bowel sounds. No distension or tympany. No guarding or rebound. No evidence of tenderness throughout. Back: No spinal tenderness. No costovertebral tenderness. Full range of motion. Skin: Warm, dry with normal turgor. Normal color with no rashes, no lesions, and no evidence of cellulitis. MS/ Extremity: Pulses equal, no cyanosis. Neurovascular intact. Full, normal range of motion. Neuro: Awake and alert, GCS 15, oriented to person, place, time, and situation. Cranial nerves II-XII grossly intact. Motor strength 5/5 in all extremities. Sensory grossly intact. Cerebellar exam normal. Normal gait. Vital Signs: 16:38 BP 112 / 66; Pulse 84; Resp 18 S; Temp 97.7(TE); Pulse Ox 98% on R/A; Weight 88.9 kg ca1 (R); Height 5 ft. 2 in. (157.48 cm) (R); 17:00 BP 116 / 72; Pulse 78; Resp 16; Pulse Ox 99% on R/A; Pain 3/10; ls4 18:00 BP 112 / 70; Pulse 81; Resp 18; Pulse Ox 98% on R/A; Pain 3/10; ls4 19:00 BP 110 / 70; Pulse 79; Resp 18; Pulse Ox 99% on R/A; Pain 3/10; ls4 16:38 Body Mass Index 35.85 (88.90 kg, 157.48 cm) ca1 MDM: 17:19 Patient medically screened. jr8 19:11 Data reviewed: vital signs, nurses notes, lab test result(s), radiologic studies, plain jr8 films. Data interpreted: Pulse oximetry: on room air is 98 %. Interpretation: normal. Counseling: I had a detailed discussion with the patient and/or guardian regarding: the historical points, exam findings, and any diagnostic results supporting the discharge/admit diagnosis, lab results, radiology results, the need for outpatient follow up, a family practitioner, to return to the emergency department if symptoms worsen or persist or if there are any questions or concerns that arise at home. ED course: Patient with stable normal VS. Labs stable. CXR with signs consistent of covid. Will add prednisone. Knows to come back if worse . 10/24 17:20 Order name: Basic Metabolic Panel; Complete Time: 18:28 [facility] 10/24 17:20 Order name: CBC with Diff; Complete Time: 18:28 [facility] 10/24 17:20 Order name: Hepatic Function; Complete Time: 18:28 [facility] 10/24 17:20 Order name: Lipase; Complete Time: 18:28 [facility] 10/24 17:20 Order name: XRAY Chest (1 view) [facility] 10/24 17:20 Order name: IV Saline Lock; Complete Time: 17:58 [facility] 10/24 17:20 Order name: Labs collected and sent; Complete Time: 17:58 jr8 Administered Medications: 18:34 Drug: NS 0.9% 1000 ml Route: IV; Rate: 1000 ml; Site: left forearm; ls4 19:40 Follow up: IV Status: Completed infusion; IV Intake: 1000ml ls4 19:00 Drug: Potassium Chloride 20 mEq Route: PO; ls4 19:26 Follow up: Response: No adverse reaction; Marked relief of symptoms ls4 Disposition: 10/25/19 19:12 Discharged to Home. Impression: Shortness of breath, SARS-associated coronavirus as the cause of diseases classified elsewhere. - Condition is Stable. - Discharge Instructions: Severe Acute Respiratory Syndrome (SARS), Shortness of Breath. - Prescriptions for prednisone 10 mg Oral tablet - take 1 tablet by ORAL route 2 times per day for 14 days; 28 tablet. - Medication Reconciliation Form, Thank You Letter, Antibiotic Education, Prescription Opioid Use form. - Follow up: Arnaud James DO; When: 1 week; Reason: Recheck today's complaints, Continuance of care, Re-evaluation by your physician. - Problem is new. - Symptoms have improved. Addendum: 10/27/2019 21:22 Co-signature as Attending Physician, Ander Prasad MD Did not see or evaluate patient. p s1 I was available in the ED for consultation. Signature for administrative purposes. . Signatures: Dispatcher [employer] EDMS Martinez Sepulveda PA PA jr8 Ander Prasad MD MD ps1 Caren Romero, RN RN ls4 Jonelle Decker, RN RN ca1 Corrections: (The following items were deleted from the chart) 10/24 19:11 19:09 This 44 yrs old Female presents to ER via Ambulatory with complaints of jr8 Weakness, Abdominal Pain, Vomiting. jr8 19:45 19:12 10/25/2019 19:12 Discharged to Home. Impression: Shortness of breath; ls4 SARS-associated coronavirus as the cause of diseases classified elsewhere. Condition is Stable. Forms are Medication Reconciliation Form, Thank You Letter, Antibiotic Education, Prescription Opioid Use. Follow up: Arnaud James; When: 1 week; Reason: Recheck today's complaints, Continuance of care, Re-evaluation by your physician. Problem is new. Symptoms have improved. jr8
[2019-10-25] MEDS ORDERED: POTASSIUM CL SA 10 MEQ TAB PO ONE (19:21)
[2019-10-25 20:25] VITALS: TEMP 97.7
[2019-10-25 20:29] VITALS: BP 110/70; O2SAT 99
--- NOTE | 2019-10-25 21:54 | RAD REPORT ---
EXAM DESCRIPTION: Mary Lou Single View10/25/2019 9:22 pm CLINICAL HISTORY: Cough COMPARISON: April 2019 FINDINGS: Mild bilateral pulmonary opacities are suspected The heart is normal size IMPRESSION: Mild bilateral pulmonary opacities are suspected which may indicate a viral pneumonia
--- OUTSIDE RECORDS SUMMARY | 2019-10-26 01:41 | XMS REPORT | Summary of Care ---
:1975 Author Organization [facility] Address [address] [place] [address] Care Team Providers Name Role Phone Pcp, Does Not Have A Primary Care Provider Reason for Visit Reason Comments Results Encounter Details Date Type Department Care Team Description 07/29/2019 Telephone [facility]ESS [facility] Beth Goss, Results [address] [facility] [place] [address] [address] [address] [place] [address] Allergies Active Allergy Reactions Severity Noted Date Comments Hydrocodone Hallucinations 07/28/2019 Morphine Anaphylaxis, Shortness of Breath High 08/04/19 14 documented as of this encounter (statuses as of 07/29/2019) Medications Medication Sig Dispensed Refills Start Date End Date Status ondansetron 4 mg Take 1 tablet by 20 tablet 0 07/28/2019 Active tabletIndications: mouth every 8 Gastroenteritis (eight) hours as needed for Nausea and Vomiting (N/V). documented as of this encounter (statuses as of 07/29/2019) Active Problems No known active problemsdocumented as of this encounter (statuses as of 07/29/2019) Social History Tobacco Use Types Packs/Day Years Used Date Never Smoker Smokeless Tobacco: Never Used Alcohol Use Drinks/Week oz/Week Comments No Sex Assigned at Date Recorded Not on file Job Start Date Occupation Industry Not on file Not on file Not on file Travel History Travel Start Travel End No recent travel history available. documented as of this encounter Last Filed Vital Signs Not on filedocumented in this encounter Plan of Treatment Health Maintenance Due Date Last Done Comments DTaP,Tdap,and Td Vaccines (1 - 1985 Tdap) Breast Cancer Screening 2014 (MAMMOGRAM) PAP SMEAR 08/03/2016 08/03/2013 INFLUENZA VACCINE (#1) 2018 PNEUMOCOCCAL 0-64 YEARS COMBINED Aged Out No longer eligible based on SERIES patient's age to complete this topic documented as of this encounter Results Not on filedocumented in this encounter Insurance Payer Benefit Plan Subscriber ID Effective Dates Phone Address Type / Group BC[place] [employer] [place] [id number] 2019-Nadia [phone] [address] PPO/POS [place] - OUT OF t 7 [id number] [place] [address] documented as of this encounter
--- OUTSIDE RECORDS SUMMARY | 2019-10-26 01:41 | XMS REPORT | Continuity of Care Document ---
:1975 Author Organization [facility] t Address [address] [place] [address] Care Team Providers Name Role Phone Prasad DO Attending Clinician Aurelio GANP Attending Clinician Kyle Goss MD Attending Clinician Pob1, Care Clinic Attending Clinician Unavailable Problems Condition Condition Condition Status Onset Resolution Last Treating Co mments Source Name Details Category Date Date Treatment Clinician Date Morbid Morbid Problem Active [facility] ([facility] - obesity obesity Memoria due to due to l excess excess Outpati calories calories ent Clinics Depression Depression Problem Active [facility] with with [facility] - anxiety anxiety [facility] l [facility] Body mass Body mass Problem Active [facility] index index [facility] - (BMI) (BMI) Memoria 40.0-44.9, 40.0-44.9, l adult adult [facility] Vitamin D Vitamin D Problem Active [facility] deficiency deficiency Lorraine kes - disease disease Memoria l [facility] Allergic Allergic Problem Active [facility] sinusitis sinusitis Luke [facility] - Memoria l [facility] Allergies, Adverse Reactions, Alerts Allergy Allergy Status Severity Reaction(s) Onset Inactive Treating Comm ents Source Name Type Date Date Clinician Morphine Adverse Active Info Not [facility] Sulfate Reaction Available Luke s - Memoria l [facility] Hydrocod Adverse Active Info Not [facility] one-Acet Reaction Available Matthew es - aminophe Memoria n l [facility] Amoxicil Adverse Active yeast [facility] anat Reaction [facility] - [facility]oria l [facility] Medications Ordered Filled Start Stop Current Ordering Indication Dosage Frequency Signature Comments Components Source Medication Medication Date Date Medication? Clinician (SIG) Name Name Keikox Fareedthromax Arnaud [address] [facility] Z-Rd Z-Rd 06-29 James today [facility] - 00:00: 00:00 then 1 Memoria 00 :00 tablet l once a day [facility] Vitamin D3 Vitamin D3 Arnaud [address] [facility] 06-01 James [facility] - 00:00: 00:00 Memoria 00 :00 l [facility] ent Clinics Procedures This patient has no known procedures. Encounters Start End Encounter Admission Attending Care Care Encounter Source Date/Time Date/Time Type Type Clinicians Facility Department ID 2019-10-12 2019-10-13 [id number] 23:48:45 01:31:00 Ander Hurst [id number] [place] [id number] [place] [id number] 2019-07-30 2019-07-30 [facility] [id number] 00:00:00 00:00:00 [facility] [id number] [place] [id number] [facility] [phone] nal [address] 2019-07-29 2019-07-29 Telephone Ana Paula JENSEN [id number] 00:00:00 00:00:00 , Beth ESCOBEDO [id number] [facility] [id number] 2019-07-28 2019-07-28 Urgent Pob1, Acute [facility] [id number] 08:59:05 09:39:16 [facility] [id number] [place] [id number] Professio [phone] nal 044 [address] One 2019-07-01 2019-07-01 [facility] [id number] [address] 13:59:00 13:59:00 [facility] [place] [facility] Family Medicine Medicine [facility] 2019-06-30 2019-06-30 [facility] [id number] 10:00:00 10:00:00 t [facility] 2019-06-01 2019-06-01 [facility] [id number] 08:22:00 08:22:00 t [facility] 2019-05-30 2019-05-30 [facility] [id number] 09:00:00 09:00:00 t [facility] Results This patient has no known results.
--- OUTSIDE RECORDS SUMMARY | 2019-10-26 01:41 | XMS REPORT | Summary of Care ---
:[address] [facility] Address [address] [place] [address] Care Team Providers Name Role Phone Pcp, Does Not Have A Primary Care Provider Reason for Visit Reason Comments Fever x1 week Cough Abdominal Pain Nausea Encounter Details Date Type Department Care Team Description 07/28/2019 Urgent Care [facility] Family Marifer Cazares PA [facility] [place] [address] Gastroenteritis (Primary Dx); [place] [address], Acute Care Clinic Fever, unspecified fever cause [address] [place] [address] Allergies Active Allergy Reactions Severity Noted Date Comments Hydrocodone Hallucinations 07/28/2019 Morphine Anaphylaxis, Shortness of Breath High 08/04/19 14 documented as of this encounter (statuses as of 07/28/2019) Medications Medication Sig Dispensed Refills Start Date End Date Status ondansetron 4 mg Take 1 tablet by 20 tablet 0 07/28/2019 Active tabletIndications: mouth every 8 Gastroenteritis (eight) hours as needed for Nausea and Vomiting (N/V). documented as of this encounter (statuses as of 07/28/2019) Active Problems No known active problemsdocumented as of this encounter (statuses as of 07/28/2019) Social History Tobacco Use Types Packs/Day Years Used Date Never Smoker Smokeless Tobacco: Never Used Alcohol Use Drinks/Week oz/Week Comments No Sex Assigned at Date Recorded Not on file Job Start Date Occupation Industry Not on file Not on file Not on file Travel History Travel Start Travel End No recent travel history available. documented as of this encounter Last Filed Vital Signs Vital Sign Reading Time Taken Comments Blood Pressure 119/78 07/28/2019 9:13 AM CDT Pulse 81 07/28/2019 9:13 AM CDT Temperature 36.9 C (98.5 F) 07/28/2019 9:13 AM CDT Respiratory Rate 18 07/28/2019 9:13 AM CDT Oxygen Saturation 98% 07/28/2019 9:13 AM CDT Inhaled Oxygen Concentration - - Weight 95.3 kg (210 lb) 07/28/2019 9:13 AM CDT Height 157.5 cm (5' 2") 07/28/2019 9:13 AM CDT Body Mass Index 38.41 07/28/2019 9:13 AM CDT documented in this encounter Progress Notes Beth Goss MD - 07/28/2019 9:20 AM CDT Family Medicine Clinic Visit Date: 07/28/2019 CC: Fever (x1 week); Cough; Abdominal Pain; and Nausea HPI: Becka Lorenzo is a 43 year old female presents feeling sick over the weekend. Having some diarrhea, nausea and vomiting. Body aches and fatigue. Subjective fevers. Vomiting for about 3-4 days,about 2 times per day. Loss of taste. Diarrhea with watery stools about 3-4 x per day. 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 No known sick contacts. Reports her six months ago. Home Medications: No current outpatient medications on file. No current facility-administered medications for this visit. 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 Social History Tobacco Use Smoking status: Never Smoker Smokeless tobacco: Never Used Substance Use Topics Alcohol use: No Drug use: Not on file Review of Systems Constitutional: Positive for activity change, appetite change, chills, fatigue and fever. HENT: Positive for congestion and sore throat. Respiratory: Positive for cough and shortness of breath. Gastrointestinal: Positive for abdominal pain, diarrhea, nausea and vomiting. Negative for blood in stool and constipation. Genitourinary: Negative for difficulty urinating. BP 119/78 (BP Location: Right arm) | Pulse 81 | Temp 36.9 C (98.5 F) (Oral) | Resp 18 | Ht 5' 2" (1.575 m) | Wt 210 lb (95.3 kg) | SpO2 98% | BMI 38.41 kg/m Physical Exam Constitutional: She appears well-developed and well-nourished. No distress. HENT: Head: Normocephalic. Eyes: Pupils are equal, round, and reactive to light. Neck: Normal range of motion. Neck supple. No thyromegaly present. Cardiovascular: Normal rate and regular rhythm. No murmur heard. Pulmonary/Chest: Effort normal and breath sounds normal. No respiratory distress. She has no wheezes. Musculoskeletal: Normal range of motion. Lymphadenopathy: She has no cervical adenopathy. Skin: Skin is warm and dry. Capillary refill takes 2 to 3 seconds. No rash noted. Psychiatric: She has a normal mood and affect. Her behavior is normal. Judgment and thought content normal. Nursing note and vitals reviewed. Assessment and Plan: Becka Lorenzo is a 43 year old female presents for: ICD-10-CM ICD-9-CM 1. Fever, unspecified fever cause R50.9 780.60 2. Gastroenteritis K52.9 558.9 Hydration discussed COVID testing was preformed today. Results should be available in next 48 to 72 hours. Patient will be contacted with results for further guidance. Patient is recommended to stay home and self quarantine self and family until results are in. Home care reviewed, OTC medications, hydration, and ER warning signs/symptoms. Is Becka Lorenzo a health care worker? No Or a traveling inventory associate? No Orders Placed This Encounter Procedures POCT GRP A STREP (MOLECULAR) CORONAVIRUS COVID-19 TESTING Beth Goss MD I discussed the plan in detail with Becka Lorenzo. The patient understands her medications, any barriers to compliance have been addressed, and there are no significant side effects. I reconciled medication today. I counseled the patient about appropriate healthy behaviors and home self manag ement. she is able to explain back the plan. A printed AVS with instructions and follow-up recommendations is provided today or is otherwise available on My-Chart. Kayley Herrera MA - 07/28/2019 9:20 AM CDT fever, wet cough, nausea, vomiting, abdominal pain, diarrhea, fatigue, muscle pain, sore throat x 1 wk Chief Complaint Patient presents with Fever Cough Abdominal Pain Nausea BP 119/78 (BP Location: Right arm) | Pulse 81 | Temp 36.9 C (98.5 F) (Oral) | Resp 18 | Ht 5' 2" (1.575 m) | Wt 210 lb (95.3 kg) | SpO2 98% | BMI 38.41 kg/m Patient's Age: [age] year old documented in this encounter Plan of Treatment Name Type Priority Associated Diagnoses Date/Ti me CORONAVIRUS COVID-19 LAB Routine Fever, unspecified f ever 07/28/2019 9:19 AM TESTING cause CDT Name Type Priority Associated Diagnoses Order S chedule CORONAVIRUS COVID-19 LAB Routine Fever, unspecified f ever Expected: 07/28/2019, TESTING cause Expires: 2020 Health Maintenance Due Date Last Done Comments DTaP,Tdap,and Td Vaccines (1 - 1985 Tdap) Breast Cancer Screening 2014 (MAMMOGRAM) PAP SMEAR 08/03/2016 08/03/2013 INFLUENZA VACCINE (#1) 2018 PNEUMOCOCCAL 0-64 YEARS COMBINED Aged Out No longer eligible based on SERIES patient's age to complete this topic documented as of this encounter Procedures Procedure Name Priority Date/Time Associated Diagnosis Comme nts POCT GRP A STREP Routine 07/28/2019 9:29 AM Fever, unspecifie d Results for this (MOLECULAR) CDT fever cause procedure are i n the results section. documented in this encounter Results POCT GRP A STREP (MOLECULAR) (07/28/2019 9:29 AM CDT) Pathologist Sig nature POCT GP A STREP negative Negative - Negative Specimen Swab - THROAT documented in this encounter Visit Diagnoses Diagnosis Gastroenteritis - Primary Other and unspecified noninfectious idalia roenteritis and colitis Fever, unspecified fever cause documented in this encounter Insurance Payer Benefit Plan Subscriber ID Effective Dates Phone Address Type / Group [facility] [id number] 2019-Nadia [phone] [address] PPO/POS [place] - OUT OF t 7 [id number] [place] [address] documented as of this encounter
--- OUTSIDE RECORDS SUMMARY | 2019-10-26 01:42 | XMS REPORT | Summary of Care ---
:1975 Author Organization [facility] Address [address] [place] [address] Care Team Providers Name Role Phone Pcp, Does Not Have A Primary Care Provider Reason for Visit Reason Comments Results Encounter Details Date Type Department Care Team Description 07/30/2019 Telephone [facility] Family Medicine Cassandra Guerrero FNP Results - [id number] [place] [phone] Allergies Active Allergy Reactions Severity Noted Date Comments Hydrocodone Hallucinations 07/28/2019 Morphine Anaphylaxis, Shortness of Breath High 08/04/19 14 documented as of this encounter (statuses as of 07/30/2019) Medications Medication Sig Dispensed Refills Start Date End Date Status ondansetron 4 mg Take 1 tablet by 20 tablet 0 07/28/2019 Active tabletIndications: mouth every 8 Gastroenteritis (eight) hours as needed for Nausea and Vomiting (N/V). documented as of this encounter (statuses as of 07/30/2019) Active Problems No known active problemsdocumented as of this encounter (statuses as of 07/30/2019) Social History Tobacco Use Types Packs/Day Years [...] Type / Group [place] [id number] 2019-Nadia [phone] [address] PPO/POS [place] - OUT OF t 7 [id number] [place] [address] documented as of this encounter
--- OUTSIDE RECORDS SUMMARY | 2019-10-26 01:42 | XMS REPORT | Summary of Care ---
:[address] [facility] Address [address] [place], [place] [id number] Care Team Providers Name Role Phone Pcp, Does Not Have A Primary Care Provider Reason for Visit Reason Comments Body Aches Fever Auth/Cert Status Reason Specialty Diagnoses / Referred By Referred To Procedures Contact Contact Emergency Medicine Diagnoses BODY ACHE, FEVER [facility] Emergency Dept [address] [place] [address] Fax: Encounter Details Date Type Department Care Team Description 10/12/2019 - Emergency [facility]Emergency Ander Prasad DO COVID-19 virus infection (Primary Dx); 10/13/[address] [place] [address]. Cough [address] [facility] [address] [place] [address] [place], [place] [address] Allergies Active Allergy Reactions Severity Noted Date Comments Hydrocodone Hallucinations 07/28/2019 Morphine Anaphylaxis, Shortness of Breath High 08/04/19 14 documented as of this encounter (statuses as of 10/13/2019) Medications Medication Sig Dispensed Refills Start Date End Date Status ondansetron 4 mg Take 1 tablet by 20 tablet 0 07/28/2019 Active tabletIndications: mouth every 8 Gastroenteritis (eight) hours as needed for Nausea and Vomiting (N/V). benzonatate 100 mg Take 1 capsule 14 capsule 0 10/13/2019 Active capsuleIndications: by mouth 3 COVID-19 virus (three) times infection daily as needed for Cough. chlorpheniramine 4 mg Take 1 tablet by 30 tablet 0 10/13/2019 Active tabletIndications: mouth every 6 COVID-19 virus (six) hours as infection needed for Allergies or Runny nose. multivitamin Take 1 capsule 30 capsule 0 10/13/2019 Active capsuleIndications: by mouth daily. COVID-19 virus infection [id number] Take as directed 90 tablet 0 10/13/2019 Active 333-133-8.3 mg for daily dose. TabIndications: COVID-19 virus infection documented as of this encounter (statuses as of 10/13/2019) Active Problems No known active problemsdocumented as of this encounter (statuses as of 10/13/2019) Social History Tobacco Use Types Packs/Day Years Used Date Never Smoker Smokeless Tobacco: Never Used Alcohol Use Drinks/Week oz/Week Comments No Sex Assigned at Date Recorded Not on file Job Start Date Occupation Industry Not on file Not on file Not on file Travel History Travel Start Travel End No recent travel history available. COVID-19 Exposure Response Date Recorded In the last month, have you been in contact with No / Unsure 10/12/2019 11:43 PM CDT someone who was confirmed or suspected to have Coronavirus / COVID-19? documented as of this encounter Last Filed Vital Signs Vital Sign Reading Time Taken Comments Blood Pressure 111/65 10/13/2019 12:00 AM CDT Pulse 80 10/13/2019 12:00 AM CDT Temperature 38.2 C (100.8 F) 10/12/2019 11:45 PM CDT Respiratory Rate 16 10/13/2019 12:00 AM CDT Oxygen Saturation 95% 10/13/2019 12:00 AM CDT Inhaled Oxygen Concentration - - Weight 92.1 kg (203 lb) 10/12/2019 11:45 PM CDT Height 165.1 cm (5' 5") 10/12/2019 11:45 PM CDT Body Mass Index 33.78 10/12/2019 11:45 PM CDT documented in this encounter Discharge Instructions AttachmentsThe following attachments cannot be sent through Care Everywhere. Coronavirus Disease 2019: Caring for Yourself and Others (Slovenian)documented in this encounter Plan of Treatment Health Maintenance Due Date Last Done Comments DTaP,Tdap,and Td Vaccines (1 - 1985 Tdap) Depression Screening 1986 Breast Cancer Screening 2014 (MAMMOGRAM) PAP SMEAR 08/03/2016 08/03/2013 INFLUENZA VACCINE (Season Ended) 2019 PNEUMOCOCCAL 0-64 YEARS COMBINED Aged Out No longer eligible based on SERIES patient's age to complete this topic documented as of this encounter Procedures Procedure Name Priority Date/Time Associated Comments Diagnosis COVID-19 (ID NOW STAT 10/12/2019 11:46 PM Cough Resu lts for this RAPID TESTING) CDT procedure are in the results section. ASSIGNMENT OF Routine 10/12/2019 11:32 PM BENEFITS CDT NOTICE OF PRIVACY Routine 10/12/2019 11:32 PM PRACTICES CDT CONSENT/REFUSAL FOR Routine 10/12/2019 11:32 PM DIAGNOSIS AND CDT TREATMENT documented in this encounter Results COVID-19 (ID NOW RAPID TESTING) (10/12/2019 11:46 PM CDT) SARS-CoV-2 Rapid ID Positive (A) Not Detected [facility] Specimen Swab - NASOPHARYNGEAL SWAB Narrative Performed At [facility] COVID-19 Assay is an isothermal nucleic [facility] acid amplification test intended for the qualitative detection of nucleic acid from SARS-CoV-2 viral RNA in nasopharyngeal (STEREOTYPER APPRENTICE) specimens. It is used under Emergency Use Authorization (EUA) by FDA. The limit of detection (LOD) of the assay is 125 Genome Equivalents/mL. A positive result is indicative of the presence of SARS-CoV-2 RNA. Clinical correlation with patient history and other diagnostic information is necessary to determine patient infection status. A negative (Not Detected) result does not preclude SARS-CoV-2 infection. In patients with clinical symptoms and other tests that are consistent with SARS-CoV-2 infection, negative results should be treated as presumptive negative and a new specimen should be tested with alternative PCR molecular test. Invalid: Please collect a new specimen for repeat patient testing if clinically indicated. Performing Organization Address City/State/Zipcode Phone Number [facility] CLIA: [id number], [address] [place], [place] [address] documented in this encounter Visit Diagnoses Diagnosis COVID-19 virus infection - Primary Cough documented in this encounter Insurance Payer Benefit Plan Subscriber ID Effective Dates Phone Address Type / Group [facility] [id number] 2019-Presbenji [phone] [address] PPO/POS [place] - OUT OF t 7 [id number] [place] [address] documented as of this encounter
== END 2019-10-25 19:45 | disposition home or self-care (01) ==
LOC: ER 16:24
DX: R06.02 Shortness of breath (principal); B97.21 SARS-associated coronavirus as the cause of diseases classified elsewhere; Z88.1 Allergy status to other antibiotic agents; Z88.5 Allergy status to narcotic agent
CPT/HCPCS: 85025; 80048; 36415; 80076; 83690; 71045; 96360; 99284; J7030

== ENCOUNTER 2020-04-15 07:28 | Emergency (ER) | payer BC ==
--- OUTSIDE RECORDS SUMMARY | 2020-04-15 07:30 | XMS REPORT ---
:1975 Author Organization [facility] Address [address] [place], [address] [place] [address] Care Team Providers Name Role Phone Arnaud James Unavailable [phone] PROBLEMS Type Condition ICD9-CM VUK43-EF Onset Condition SNOMED Code Notes Code Code Dates Status Problem Allergic J30.9 Active 78867581 sinusitis Problem Chronic K29.50 Active 3827466 gastritis without bleeding, unspecified gastritis type Problem Depression with F41.8 Active 138783076 anxiety Problem Body mass index Z68.41 Active 828110449 (BMI) 40.0-44.9, adult Problem Morbid (severe) E66.01 Active 43609970608208 obesity due to excess calories Problem Vitamin D E55.9 Active 00685599 deficiency disease ALLERGIES Allergen (clinical drug Drug/Non Drug Allergy Reaction Allergy Type Onset Date Status ingredient) documented on EMR morphine Morphine Sulfate(NDC Unknown Drug Allergy Ac tive Code:[address]-88) acetaminophen / Hydrocodone-Acetamino Unknown Drug Allergy Active hydrocodone phen(NDC Code:[address]-88) amoxicillin Amoxicillin(NDC yeast Drug Allergy Active Code:[address]-79) ENCOUNTERS from 1975 to 2020-03-29 Encounter Location Date Provider Diagnosis [facility] [address] [place], Arnaudmuriel James [facility] [address], of both hands R20.0 ; [place] [address] Vitamin B12 deficiency E53. 8 ; Vitamin D defic iency disease E55.9 ; Fatigue, unspec ified type R53.83 ; P ain, joint, multiple sites M25.50 ; Depres paramjit with anxiety F4 1.8 ; Bereavement due to life event Z63. 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 gastritis witho ut bleeding, unspe cified gastritis type K29.50 IMMUNIZATIONS Vaccine Route Administration Date Status Vitamin B12 (Cyanocobalamin) IM Intramuscular Mar 29, 2020 Ad ministered Kenalog (Triamcinolone) IM Intramuscular June 30, 2019 Adminis tered SOCIAL HISTORY Tobacco Use: Social History Observation Description Date Details (start date - stop date) Never Smoker Sex Assigned At : Social History Observation Description Sex Assigned At Unknown PHQ9 Question Answer Notes Little interest or pleasure in doing things Several days Feeling down, depressed, or hopeless Several days Trouble falling or staying asleep or sleeping too much Sever al days Feeling tired or having little energy Several days Poor appetite or overeating Several days Feeling bad about yourself, or that you are a failure, or campoverde ve Not at all let yourself or your family down Trouble concentrating on things, such as reading the newspap er Not at all or watching television Moving or speaking so slowly that other people could have No t at all noticed; or the opposite, being so fidgety or restless that you have been moving around a lot more than usual Total Score 5 Interpretation Mild Depression Thoughts that you would be better off or of hurting Not at all yourself in some way Alcohol Screen Question Answer Notes Did you have a drink containing alcohol in the past year? No Points 0 Interpretation Negative Tobacco Use/Smoking Question Answer Notes Are you a never smoker REASON FOR REFERRAL No Information VITAL SIGNS Height 62 in Mar, Weight 205.2 lbs Mar, Temperature 97.3 degrees Fahrenheit Mar, BMI 37.53 kg/m2 Mar, Oximetry 95 % Mar, Respiratory Rate 17 /min Mar, Blood pressure systolic 108 mm Hg Mar, Blood pressure diastolic 55 mm Hg Mar, MEDICATIONS Medication SIG (Take, Route, Notes Start Date End Date Status Frequency, Duration) Pantoprazole Sodium 40 MG 1 tablet Orally Once a Mar, 020 Active day for 30 day(s) Vitamin D3 50,000 1 tablet Orally once a May, Active week for 90 days PROCEDURES No Information RESULTS No Results REASON FOR VISIT Go over lab results MEDICAL (GENERAL) HISTORY Type Description Date Surgical History C sections 1999,2004,2009 Goals Section No Information Health Concerns No Information MEDICAL EQUIPMENT No Information MENTAL STATUS No Information FUNCTIONAL STATUS No Information ASSESSMENTS Encounter Date Diagnosis Assessment Notes Treatment Notes Treatm ent Clinical Notes Mar, Numbness of Discussed fingers of both differential hands (ICD-10 - diagnosis extensively R20.0) patient. Education given. Denies any change in color. Will refer to neurology for further evaluation and management along with nerve conduction testing. Concern for carpal tunnel. Concern for vitamin B12 deficiency Mar, Vitamin B12 SEVERE DEF. DISCUSSE deficiency (ICD-10 Ddx. Education given. - E53.8) Will start IM then transition to PO. Side effect panel discussed. Mar, Vitamin D Patient is unable to deficiency disease tolerate 71835 (ICD-10 - E55.9) IU/Weekly therefore will transtition to PO daily 0449-0735 IU. Discussed on causes of Vit D Def. Increase sunlight + Hydration + Exercise + Food High in Vit D and OTC supplements. Mar, Fatigue, . Discussed unspecified type differential (ICD-10 - R53.83) diagnosis extensively patient. Education given. Labs ordered. Increase sunlight, hydration and activity as tolerated Mar, Pain, joint, . Discussed multiple sites differential (ICD-10 - M25.50) diagnosis with patient. Education given. Will obtain laboratory work-up. If abnormal will consider evaluation by cell stripper final. Mar, Depression with . Stable. Actively anxiety (ICD-10 - listened. Denies any F41.8) SI or HI. No medication. Supportive measures for symptomatic relief., -- Depression Education: Depression is a brain disease that makes you sad, but it is different than normal sadness. Depressed people feel down most of the time for at least 2 weeks. They also have at least one of these 2 symptoms: 1. They no longer enjoy or care about doing the things they used to like to do. 2. They feel sad, down, hopeless, or cranky most of the day, almost every day. It can also make you: lose or gain weight; sleep too much or too little; fell tired or like you have no energy; feel guilty or like you are worth nothing; forget things or feel confused; and think about or suicide. Medication and/or seeing a counselor (such as a psychiatrist, psychologist, nurse or social sciences lecturer) may be necessary to treat depression. Both treatments take time to work. If you ever feel like you might hurt yourself or some else, then call your doctor or call 911 or go to the ER. Mar, Bereavement due to . Good family and life event (ICD-10 friend support. - Z63.4) Stable. Improving Mar, Morbid (severe) obesity due to excess calories (ICD-10 - E66.01) Mar, Body mass index Counseling given. (BMI) 40.0-44.9, Education given. adult (ICD-10 - Utilized the 5-A''s Z68.41) approach to increase patient motivation and behavioral change. ASK: Patient expressed desire/readiness to change and premission was obtained to discuss. ASSESS: BMI class discussed. In addition, patient''s barrier to weight loss and identified drivers and complications. ADVISE: Discussed benefits of modest weight loss and long-term strategy as well. Educated on risks and complications of obesity on health. Treatment options were discussed including but not limited to non-surgical (medications, gym, diet/exercise) and surgical options. AGREE: Realistic weight-loss goal discussed. Behavioral goals done. Patient agreed with treatment plan. ASSIST: Provided education and resources. Plan made to address drivers and barriers. Close follow-up arranged. START: Walking daily, reducing soda and increased hydration with water of at least 64 ounces. Mar, Chronic gastritis .reviewed EGD. without bleeding, Medical release form unspecified signed. Stop gastritis type Prevacid. Will start (ICD-10 - K29.50) pantoprazole 40 mg. Education given. Make dietary lifestyle changes. Discussed long-term impact of PPI usage., We have discussed the pathophysiology of reflux disease and we discussed lifestyle modifications to avoid reflux that include elevation head of the bed, avoid alcohol, avoid caffeine, avoid maintenance, avoid tight clothing, avoid eating within 3-4 hours before bedtime, and avoiding smoking. Mar, Other -- Medication reviewed and updated. -- Dietary and Lifestyle modifications addressed regarding diet, exercise and weight managemen t. -- Treatment options, risks and benefits, side effects reviewed in detail. -- Advised on signs/symptoms to monitor and when to call clinic and/or visit the nearest ER. Patient verbalized understanding and agreeable with plan. PLAN OF TREATMENT Medication Medication Name Sig Start Date Stop Date Pantoprazole Sodium 40 MG 1 tablet Orally Once a day for 30 10 D , 2019 day(s) Vitamin D3 50,000 1 tablet Orally once a week for 90 May, 0 days Treatment Notes Assessment Notes Clinical Notes Numbness of fingers of both hands Discussed differential fbaricio gnosis extensively patient. Education given. Denies any change in color. Will refer to neurology for further evaluation and management along with nerve conduction testing. Concern for carpal tunnel. Concern for vitamin B12 deficiency Vitamin B12 deficiency SEVERE DEF. DISCUSSE Ddx. Education given. Will start IM then transition to PO. Side effect panel discussed. Vitamin D deficiency disease Patient is unable to tolerate 5 0000 IU/Weekly therefore will transtition to PO daily 2796-9583 IU. Discussed on causes of Vit D Def. Increase sunlight + Hydration + Exercise + Food High in Vit D and OTC supplements. Fatigue, unspecified type . Discussed differential diagnosi s extensively patient. Education given. Labs ordered. Increase sunlight, hydration and activity as tolerated Pain, joint, multiple sites . Discussed differential diagno sis with patient. Education given. Will obtain laboratory work-up. If abnormal will consider evaluation by cell stripper final. Depression with anxiety . Stable. Actively listened. Denies any SI or HI. No medication. Supportive measures for symptomatic relief., -- Depression Education: Depression is a brain disease that makes you sad, but it is different than normal sadness. Depressed people feel down most of the time for at least 2 weeks. They also have at least one of these 2 symptoms: 1. They no longer enjoy or care about doing the things they used to like to do. 2. They feel sad, down, hopeless, or cranky most of the day, almost every day. It can also make you: lose or gain weight; sleep too much or too little; fell tired or like you have no energy; feel guilty or like you are worth nothing; forget things or feel confused; and think about or suicide. Medication and/or seeing a counselor (such as a psychiatrist, psychologist, nurse or social sciences lecturer) may be necessary to treat depression. Both treatments take time to work. If you ever feel like you might hurt yourself or some else, then call your doctor or call 911 or go to the ER. Bereavement due to life event . Good family and friend supp ort. Stable. Improving Body mass index (BMI) 40.0-44.9, Counseling given. Education given. adult Utilized the 5-A''s approach to increase patient motivation and behavioral change. ASK: Patient expressed desire/readiness to change and premission was obtained to discuss. ASSESS: BMI class discussed. In addition, patient''s barrier to weight loss and identified drivers and complications. ADVISE: Discussed benefits of modest weight loss and long-term strategy as well. Educated on risks and complications of obesity on health. Treatment options were discussed including but not limited to non-surgical (medications, gym, diet/exercise) and surgical options. AGREE: Realistic weight-loss goal discussed. Behavioral goals done. Patient agreed with treatment plan. ASSIST: Provided education and resources. Plan made to address drivers and barriers. Close follow-up arranged. START: Walking daily, reducing soda and increased hydration with water of at least 64 ounces. Chronic gastritis without .reviewed EGD. Medical release for m bleeding, unspecified gastritis signed. Stop Prevacid. Will start type pantoprazole 40 mg. Education given. Make dietary lifestyle changes. Discussed long-term impact of PPI usage., We have discussed the pathophysiology of reflux disease and we discussed lifestyle modifications to avoid reflux that include elevation head of the bed, avoid alcohol, avoid caffeine, avoid maintenance, avoid tight clothing, avoid eating within 3-4 hours before bedtime, and avoiding smoking. Treatment Notes Test Name Order Date Vitamin B12 and Folate 2020-03-29 Comp. Metabolic Panel (14) (CMP) 2020-03-29 CBC With Differential/Platelet 2020-03-29 Vitamin D, 25-Hydroxy 2020-03-29 TSH reflex to T4F 2020-03-29 Next Appt Details 2 weeks Reason: Provider Name:Arnaud James 2020-04-11 1 1:10:00 AM, [address], [address], [place], [address], Insurance Providers Payer Name Payer Payer Insured Name Patient Coverage Covera ge End Address Phone Relationship to Start Date Javi e Insured [employer] [phone] Shady Lorenzo 2020 and [place] [id number] [place] [id number]
--- OUTSIDE RECORDS SUMMARY | 2020-04-15 07:30 | XMS REPORT ---
:1975 Author Organization [facility] Address [address] [place], [address] [place] [address] Care Team Providers Name Role Phone Denisse Jamesh Unavailable [phone] PROBLEMS Type Condition ICD9-CM [id number] Onset Condition SNOMED Code Notes Code Code Dates Status Problem Vitamin D E55.9 Active 00036042 deficiency disease Problem Allergic J30.9 Active 93545504 sinusitis Problem Depression F41.8 Active 756256016 with anxiety Problem Body mass Z68.41 Active 657522200 index (BMI) 40.0-44.9, adult Problem Morbid E66.01 Active 29998024933584 (severe) obesity due to excess calories ALLERGIES Allergen (clinical drug Drug/Non Drug Allergy Reaction Allergy Type Onset Date Status ingredient) documented on EMR morphine Morphine Sulfate(NDC Unknown Drug Allergy Ac tive Code:[address]-53) acetaminophen / Hydrocodone-Acetamino Unknown Drug Allergy Active hydrocodone phen(NDC Code:[address]-94) amoxicillin Amoxicillin(NDC yeast Drug Allergy Active Code:[address]-02) ENCOUNTERS from 1975 to 2020-02-28 Encounter Location Date Provider Diagnosis [facility] [address] Feb, [place] [address] IMMUNIZATIONS Vaccine Route Administration Date Status Kenalog (Triamcinolone) IM Intramuscular June 30, 2019 [...] REASON FOR REFERRAL No Information VITAL SIGNS No information MEDICATIONS No Information PROCEDURES No Information RESULTS No Results REASON FOR VISIT Sick MEDICAL (GENERAL) HISTORY Type Description Date Surgical History C sections 1999,2004,2009 Goals Section No Information Health Concerns No Information MEDICAL EQUIPMENT No Information MENTAL STATUS No Information FUNCTIONAL STATUS No Information ASSESSMENTS No Information PLAN OF TREATMENT Next Appt Details Provider [facility] James, 2020-02-29 0 7:40:00 AM, [address], [address], [place], [address], Insurance Providers Payer Name Payer Payer Insured Name Patient Coverage Covera End Address Phone Relationship to Start Date Javi e Insured [employer] [phone] Shady Lorenzo self 2020 and [place] [id number] [facility] [address]
--- OUTSIDE RECORDS SUMMARY | 2020-04-15 07:30 | XMS REPORT ---
:1975 Author Organization [facility] Address [address] [place], [address] [place] [address] Care Team Providers Name Role Phone Arnaud James Unavailable [phone] PROBLEMS Type Condition ICD9-CM SKN06-ZA Onset Condition SNOMED Code Notes Code Code Dates Status Problem Vitamin D E55.9 Active 01503865 deficiency disease Problem Allergic J30.9 Active 30322024 sinusitis Problem Depression F41.8 Active 933794351 with anxiety Problem Body mass Z68.41 Active 212621045 index (BMI) 40.0-44.9, adult Problem Morbid E66.01 Active 68892722803555 (severe) obesity due to excess calories ALLERGIES Allergen (clinical drug Drug/Non Drug Allergy Reaction Allergy Type Onset Date Status ingredient) documented on EMR morphine Morphine Sulfate(NDC Unknown Drug Allergy Ac tive Code:[address]-15) acetaminophen / Hydrocodone-Acetamino Unknown Drug Allergy Active hydrocodone phen(NDC Code:[address]-67) amoxicillin Amoxicillin(NDC yeast Drug Allergy Active Code:[address]-40) ENCOUNTERS from 1975 to 2020-02-29 Encounter Location Date Provider Diagnosis [facility] [address] [place] Feb, Arnaudmuriel James Acu te non-recurrent Family Medicine [address], [place] [address] J01.00 and All ergic sinusitis J30.9 IMMUNIZATIONS Vaccine Route Administration Date Status Kenalog [...] No Information VITAL SIGNS Height 62 in Feb, Weight 220 lbs Feb, Temperature 98 degrees Fahrenheit Feb, BMI 40.23 kg/m2 Feb, MEDICATIONS Medication SIG (Take, Route, Frequency, Start Date End Date Status Duration) Azithromycin 250 MG 2 tablets on the first day, Feb, 16 No 2019 Active then 1 tablet daily for 4 days Orally Once a day for 5 day(s) PROCEDURES No Information RESULTS No Results REASON FOR VISIT sick MEDICAL (GENERAL) HISTORY Type Description Date Surgical History C sections 1999,2004,2009 Goals Section No Information Health Concerns No Information MEDICAL EQUIPMENT No Information MENTAL STATUS No Information FUNCTIONAL STATUS No Information ASSESSMENTS Encounter Date Diagnosis Notes Feb, Allergic sinusitis (ICD-10 - J30.9) Feb, Acute non-recurrent maxillary sinusitis (ICD-10 - J01.00) PLAN OF TREATMENT Medication Medication Name Sig Start Date Stop Date Azithromycin 250 MG 2 tablets on the first day, then 1 Feb, Feb, tablet daily for 4 days Orally Once a day for 5 day(s) Treatment Notes Assessment Notes Clinical Notes Acute non-recurrent maxillary With the duration and severity of sinusitis symptoms/PE, will treat with Zpak. Side effect discussed with patient. In addition, discussed supportive measures and home remedies for symptomatic relief. Increase hydration. Advised on signs/symptoms to monitor. If able to take, OK to use OTC Tylenol and/or NSAIDs for pain and fever, temporarily. It is important to rest and take your medication as recommended by the doctor. You should clean your hands frequently. You should remain indoors and cover your mouth when coughing. If necessary you may have to wear a mask to keep from infecting others. You should also change your toothbrush within 24-48 hours of starting any antibiotics. Salt water gargles three times a day is recommended for pharyngeal irritation and congestion. Nasal saline sprays three times a day to the nostrils may help with the nasal congestion. You may also take Mucinex OTC for chest congestion. If the symptoms persists or worsen after 24-48 hours especially if taking medication, then you are to call back for reevaluation or go to the ER. Allergic sinusitis Medication reviewed and updated. -- Dietary and Lifestyle modifications addressed regarding diet, exercise and weight management. -- Treatment options, risks and benefits, side effects reviewed in detail. -- Advised on signs/symptoms to monitor and when to call clinic and/or visit the nearest ER. Patient verbalized understanding and agreeable with plan Next Appt Details 04/2020 WELLNESS + LABS Reason: Insurance Providers Payer Name Payer Payer Insured Name Patient Coverage Covera ge End Address Phone Relationship to Start Date Javi e Insured [employer] [phone] LorenzoShady self 2020 and [place] [id number] [facility] [address]
--- OUTSIDE RECORDS SUMMARY | 2020-04-15 07:30 | XMS REPORT | Continuity of Care Document ---
:1975 Author Organization [facility] t Address [address] [place] [address] Care Team Providers Name Role Phone Prasad DO Attending Clinician Aurelio GANP Attending Clinician Ana Paula DELANEY M Attending Clinician Pob1, Care Clinic Attending Clinician Unavailable Problems This patient has no known problems. Allergies, Adverse Reactions, Alerts Allergy Allergy Status Severity Reaction(s) Onset Inactive Treating Comm ents Source Name Type Date Date Clinician Morphine Adverse Active Info Not [facility] S[facility] Available [facility] Hydrocod Adverse Active Info Not [facility] one-Acet Reaction Available Matthew es - aminophe [facility] Amoxicil Adverse Active yeast [facility] Medications Ordered Filled Start Stop Current Ordering Indication Dosage Frequency Signature Comments Components Source Medication Medication Date Date Medication? Clinician (SIG) Name Name Zithromax Zithromax 2019- No Arnaud [address] [facility] Z-Rd Z-Rd 3-07-04 James today [facility] then 1 [facility] :00 [facility] l [facility] Vitamin D3 Vitamin D3 2019- No Arnaud [address] [facility] -08-23 James [facility] l Out[facility] ent Clinics Procedures This patient has no known procedures. Encounters Start End Encounter Admission Attending Care Care Encounter Source Date/Time Date/Time Type Type Clinicians Facility Department ID 2020-04-11 2020-04-11 [facility] [id number] 2020-03-29 2020-03-29 [facility] [id number] 2020-02-29 2020-02-29 [facility] [id number] [facility] 2020-02-28 2020[facility]02-28 [facility] [id number] [facility] 2019-10-31 2019-10-31 [facility] [id number] 12:06:00 12:06:00 [facility] Medicine Outpati ent Clinics 2019-10-26 2019-10-26 [facility] [id number] 14:00:00 14:00:00 [facility] Medicine Outpati ent Clinics 2019-10-25 2019-10-25 [facility] [id number] 13:09:00 13:09:00 [facility] Medicine Outpati ent Clinics 2019-10-12 2019-10-13 Emergency [facility] [id number] 23:48:45 01:31:00 Ander Hurst [id number] [place] 4.2.7.2.686 [place] [id number] 2019-07-30 2019-07-30 [facility] [id number] 00:00:00 00:00:00 [facility] [id number] [place] 4.2.7.2.686 [facility] [id number] critical access hospital [address] 2019-07-29 2019-07-29 Telephone Ana Paula JENSEN [id number] 00:00:00 00:00:00 , Beth ESCOBEDO 350.1.13.10 [facility] [id number] [id number] 2019-07-28 2019-07-28 Urgent Pob1, [place] [id number] 08:59:05 09:39:16 [facility] [id number] [place] 4.2.7.2.686 Professio [id number] [place]al [address] 2019-07-01 2019-07-01 [facility] [id number] [facility] 13:59:00 13:59:00 [facility] Outpati ent Clinics 2019-06-30 2019-06-30 [facility] [id number] 10:00:00 10:00:00 [facility] Medicine Outpati ent Clinics 2019-06-01 2019-06-01 [facility] [id number] 08:22:00 08:22:00 [facility] Outpati ent Clinics 2019-05-30 2019-05-30 [facility] [id number] 09:00:00 09:00:00 [facility] Results This patient has no known results.
--- OUTSIDE RECORDS SUMMARY | 2020-04-15 07:31 | XMS REPORT ---
:1975 Author Organization [facility] Address [address] [place], [address] [place] [address] Care Team Providers Name Role Phone Arnaud James Unavailable [phone] PROBLEMS Type Condition ICD9-CM [id number] Onset Condition SNOMED Code Notes Code Code Dates Status Problem Allergic J30.9 Active 49625118 sinusitis Problem Chronic K29.50 Active 4874344 gastritis without bleeding, unspecified gastritis type Problem Depression with F41.8 Active 126567306 anxiety Problem Body mass index Z68.41 Active 607742370 (BMI) 40.0-44.9, adult Problem Morbid (severe) E66.01 Active 94075147651575 obesity due to excess calories Problem Vitamin D E55.9 Active 73822379 deficiency disease ALLERGIES Allergen (clinical drug Drug/Non Drug Allergy Reaction Allergy Type Onset Date Status ingredient) documented on EMR morphine Morphine Sulfate(NDC Unknown Drug Allergy Ac tive Code:[address]-79) acetaminophen / Hydrocodone-Acetamino Unknown Drug Allergy Active hydrocodone phen(NDC Code:[address]-68) amoxicillin Amoxicillin(NDC yeast Drug Allergy Active Code:[address]-60) ENCOUNTERS from 1975 to 2020-04-11 [facility]counter [facility] Date [facility] [address] [place], Arnaudmuriel James Num bness of fingers Family Medicine [address], of both hands R20.0 ; [place] [address] Vitamin B12 deficiency E53. 8 ; Vitamin D defic iency disease E55.9 ; Fatigue, unspec ified type R53.83 ; P ain, joint, multiple sites M25.50 ; Depres paramjit with anxiety F4 1.8 ; Bereavement due to life event Z63. 4 ; Morbid (severe) obesity due to excess calories E66.01 ; Body mass index (BMI) 40.0-44.9, adul t Z68.41 and [employer] anita gastritis witho ut bleeding, unspe cified gastritis type K29.50 IMMUNIZATIONS Vaccine Route Administration Date Status Vitamin B12 (Cyanocobalamin) IM Intramuscular Apr 11, 2020 Ad ministered Vitamin B12 (Cyanocobalamin) IM Intramuscular Mar 29, [...] VITAL SIGNS Height 62 in Mar, Weight 203.5 lbs Mar, Temperature 97.1 degrees Fahrenheit Mar, BMI 37.22 kg/m2 Mar, Oximetry 97 % Mar, Respiratory Rate 18 /min Mar, Blood pressure systolic 122 mm Hg Mar, Blood pressure diastolic 58 mm Hg Mar, MEDICATIONS Medication SIG (Take, Route, Frequency, Notes Start Date End Javi e Status Duration) Vitamin D3 50,000 1 tablet Orally once a week for 12 May, 2019 Active 90 days Omeprazole 40 MG 1 capsule 30 minutes before Mar, Active morning meal Orally Once a day for 30 day(s) PROCEDURES No Information RESULTS No Results REASON FOR VISIT 2 wk lab f/u and B12 inj. [facility] (GENERAL) HISTORY Type Description Date Surgical History [...] for carpal tunnel. Concern for vitamin B12 deficiency. Improvement with vitamin B12 injection Mar, Vitamin B12 SEVERE DEF. DISCUSSE deficiency (ICD-10 Ddx. Education given. - E53.8) Will start IM then transition to PO. Side effect panel discussed. Mar, Vitamin D Patient is unable to deficiency disease tolerate 18515 (ICD-10 - E55.9) IU/Weekly therefore will transtition to PO daily 5915-6354 IU. Discussed on causes of Vit D Def. Increase sunlight + Hydration + Exercise + Food High in Vit D and OTC supplements. Encouraged to increase 2 tablets of 5000 IUs 1 in the morning 1 in the evening. Mar, Fatigue, . Discussed unspecified type differential (ICD-10 - R53.83) diagnosis extensively patient. Education given. Labs ordered. Increase sunlight, hydration and activity as tolerated Mar, Pain, joint, . Discussed multiple sites differential (ICD-10 - M25.50) diagnosis with patient. Education given. Mar, Depression with . Stable. Actively anxiety [...] as a psychiatrist, psychologist, nurse or social worker delinquency prevention) may be necessary to treat depression. Both [...] type Prevacid. Will start (ICD-10 - K29.50) omeprazole 40 mg. Stop pantoprazole. Education given. Make dietary lifestyle changes. Discussed [...] Medication Name Sig Start Date Stop Date Omeprazole 40 MG 1 capsule 30 minutes before morning meal Mar Orally Once a day for 30 day(s) Treatment Notes Assessment Notes Clinical Notes Numbness of fingers of both hands Discussed differential fabricio gnosis extensively patient. Education given. Denies any change in color. Will refer to neurology for further evaluation and management along with nerve conduction testing. Concern for carpal tunnel. Concern for vitamin B12 deficiency. Improvement with vitamin B12 injection Vitamin B12 deficiency SEVERE DEF. DISCUSSE Ddx. Education given. Will start IM then transition to PO. Side effect panel discussed. Vitamin D deficiency disease Patient is unable to tolerate 5 0000 IU/Weekly therefore will transtition to PO daily 4054-7371 IU. Discussed on causes of Vit D Def. Increase sunlight + Hydration + Exercise + Food High in Vit D and OTC supplements. Encouraged to increase 2 tablets of 5000 IUs 1 in the morning 1 in the evening. Fatigue, unspecified type . Discussed differential diagnosi s extensively patient. Education given. Labs ordered. Increase sunlight, hydration and activity as tolerated Pain, joint, multiple sites . Discussed differential diagno sis with patient. Education given. Depression with anxiety . Stable. Actively listened. [...] as a psychiatrist, psychologist, nurse or social worker delinquency prevention) may be necessary to treat depression. Both [...] gastritis signed. Stop Prevacid. Will start type omeprazole 40 mg. Stop pantoprazole. Education given. Make dietary lifestyle changes. Discussed [...] Name Order Date Vitamin B12 and Folate 2020-04-11 Comp. Metabolic Panel (14) (CMP) 2020-04-11 CBC With Differential/Platelet 2020-04-11 Vitamin D, 25-Hydroxy 2020-04-11 TSH reflex to T4F 2020-04-11 Next Appt Details 4 Weeks Reason: Provider Name:Arnaud James, 2020-04-25 11:00:00 AM, [address] [place], [address], [place], [address], Provider Name:Arnaud Wright Jacob, 2020-05-09 11:40:00 AM, [address], [place], [address], Insurance Providers Payer Name Payer Payer Insured Name Patient Coverage Covera End Address Phone Relationship to Start Date Javi e Insured [employer] [phone] Shady Lorenzo self 2020 and Blue [id number] [address] [place] [id number]
[2020-04-15 09:16] LABS: Urine Blood NEGATIVE (NEG); Urine Glucose NEGATIVE (NEG); Urine Protein NEGATIVE (NEG); Urine Specific Gravity >1.030 (1.005-1.030); Urine pH 5.5 (5.0-7.0)
[2020-04-15 09:24] LABS: Urine Bacteria LOADED /HPF (<20); Urine RBC NONE SEEN /HPF (NONE SEEN)
--- NOTE | 2020-04-15 10:04 | RAD REPORT ---
EXAM DESCRIPTION: CT - Stone Protocol - 04/15/2020 9:47 am CLINICAL HISTORY: PYELONEPHRITIS COMPARISON: Abdomen Pelvis W Contrast dated 04/20/2019 TECHNIQUE: Axial 5 mm thick images were obtained without oral or IV contrast. The [id number] span s the entirety of the system including uppermost abdomen and lung bases. All CT scans are performed using dose optimization technique as appropriate and may include automated exposure control or mA/KV adjustment according to patient size. FINDINGS: No hydronephrosis is present and no obstructing ureteral calculi. Patient has bilateral re nal pyramid mineralization is not acutely significant. Patient has a 4 millimeter nonobstructing orville x calcification lateral mid left kidney. No suspicious renal masses. Isodense masses and pyelonephrit is are not excluded on a stone protocol CT scan. No significant adrenal finding. Urinary bladder is c ontracted. No bladder calculi. Uterus is slightly lobulated and may contain a small fibroid. No signi ficant uterine finding. A 2 centimeter left ovarian cyst is present. No worrisome ovarian finding. Imaged portions of the liver, spleen and pancreas show no suspicious findings on non-contrast imaging . Small cysts are present in the liver. These do not appear changed from April. No gallbladder or b iliary tree abnormality. No suspicious bowel findings. Minimal diverticulosis is present without diverticulitis. No appendicit is findings. No hernia, mass or bulky lymphadenopathy noted. No free air, free fluid or inflammatory stranding. No significant bony abnormality. Disc and bone degenerative changes are present. Advanced for age fac et joint degenerative change present at L5-S1. IMPRESSION: Incidental note of nephrocalcinosis. Nonobstructing calculus noted on the left. No hydronephrosis, obstructing calculus or acute finding identifiable. Isodense masses and pyelonephritis are not excluded on stone protocol technique. No acute or significant GI or ELECTRICIAN MACHINE SHOP finding. Patient has a 2 centimeter left ovarian cyst.
[2020-04-15 10:43] LABS: Absolute Lymphocytes (CBC) 2.2 K/uL (0.7-4.9); Basophils % 0.6 % (0-1.3); Hematocrit 41.9 % (36.0-45.0); Lymphocytes % 27.3 % (15.3-44.8); MPV 9.9 fL (7.6-11.3); RBC Red Blood Cell Count 4.44 M/uL (3.86-4.86)
[2020-04-15] MEDS ORDERED: KETOROLAC 30 MG/ML INJ ONE (10:51)
[2020-04-15 11:16] LABS: ALT/SGPT 17 U/L (12-78); AST/SGOT 12 U/L (15-37); Albumin 3.7 g/dL (3.4-5.0); Alkaline Phosphatase 76 U/L (45-117); BUN Blood Urea Nitrogen 16 mg/dL (7-18); Bicarbonate 29 mmol/L (21-32); Bilirubin Direct < 0.1 mg/dL (0-0.2); Bilirubin Total 0.4 mg/dL (0.2-1.0); Glucose Level 102 mg/dL (74-106); Lipase 77 U/L (73-393); Potassium 3.8 mmol/L (3.5-5.1); Protein, Total 7.7 g/dL (6.4-8.2); Sodium Level 140 mmol/L (136-145)
--- NOTE | 2020-04-15 11:47 | RAD REPORT ---
EXAM DESCRIPTION: US - Abdomen Exam Limited - 04/15/2020 11:29 am CLINICAL HISTORY: ABD PAIN COMPARISON: Stone Protocol dated 04/15/2020 FINDINGS: No mobile gallstones are identified. An 8 x 6 x 5 mm echogenic nonshadowing focus is adher ent to the gallbladder wall. Large polyp or mass are possible. The patient was not fasting for this e xamination in the gallbladder is mostly contracted. This limits assessment of this focal mass as well as causes accentuated wall thickness. No pericholecystic fluid seen. No common duct stone or biliary tree dilatation identified. IMPRESSION: No mobile gallstones and no sludge identified in a contracted gallbladder. An 8 x 6 x 5 mm echogenic focus adherent to the wall could be a large polyp or even possibly adherent stone or mass. Patient's gallbladder should be re-evaluated when she is adequately fasting to better assess this gal lbladder finding. No biliary tree abnormality.
--- NOTE | 2020-04-15 12:01 | ER ---
Nurse's Notes [facility] Name: Becka Lorenzo Age: 44 yrs Sex: Female : 1975 Arrival Date: 04/15/2020 Time: 07:29 Bed 18 Private MD: Diagnosis: Unspecified abdominal pain;Urinary tract infection, site not specified Presentation: 04/15 08:42 Chief complaint: Patient states: right kidney is hurting 10/10 started this morning, iw couldn't hardly walk, no hx of kidney stones, sometimes has pain when she urinates, pain radiates to abd. Coronavirus screen: At this time, the client does not indicate any symptoms associated with coronavirus-19. Ebola Screen: Patient negative for fever greater than or equal to 101.5 degrees Fahrenheit, and additional compatible Ebola Virus Disease symptoms Patient denies exposure to infectious person. Patient denies travel to an Ebola-affected area in the 21 days before illness onset. No symptoms or risks identified at this time. Initial Sepsis Screen: Does the patient meet any 2 criteria? No. Patient's initial sepsis screen is negative. Does the patient have a suspected source of infection? No. Patient's initial sepsis screen is negative. Risk Assessment: Do you want to hurt yourself or someone else? Patient reports no desire to harm self or others. Onset of symptoms was April 15, 2020. 08:42 Method Of Arrival: Ambulatory iw 08:42 Acuity: LOW 3 iw Triage Assessment: 08:45 General: Appears distressed, uncomfortable, obese, Behavior is cooperative, appropriate bp for age, anxious. Pain: Complains of pain in right flank. EENT: No deficits noted. Neuro: No deficits noted. Cardiovascular: No deficits noted. Respiratory: No deficits noted. GI: No signs and/or symptoms were reported involving the gastrointestinal system. : Reports pain in right flank(s). Derm: No deficits noted. Musculoskeletal: No deficits noted. 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 - Social history:: Smoking status: Patient denies any tobacco usage or history of. Screenin:30 Abuse screen: Denies threats or abuse. Denies injuries from another. Nutritional bp screening: No deficits noted. Tuberculosis screening: No symptoms or risk factors identified. Fall Risk None identified. Assessment: 10:15 Reassessment: PT RETURNED FROM CT. bp 11:15 Reassessment: No changes from previously documented assessment. Patient and/or family bp updated on plan of care and expected duration. Pain level reassessed. Patient is alert, oriented x 3, equal unlabored respirations, skin warm/dry/pink. Patient states feeling better. 12:17 Reassessment: PT D/C HOME AMBULATORY WITH FAMILY, DX WITH UTI. bp Vital Signs: 08:42 BP 119 / 53; Pulse 70; Resp 16; Temp 97.8; Pulse Ox 100% on R/A; Weight 88.45 kg; iw Height 5 ft. 2 in. (157.48 cm); Pain 10/10; 10:30 BP 118 / 69; Pulse 57; Resp 17; Pulse Ox 99% ; bp 12:00 BP 110 / 61; Pulse 60; Resp 17; Pulse Ox 99% ; zb 08:42 Body Mass Index 35.67 (88.45 kg, 157.48 cm) iw ED Course: 07:29 Patient arrived in ED. as 08:44 Triage completed. iw 08:44 Arm band placed on. iw 09:30 Mohan Suarez PA is PHCP. jmm 09:30 Dandre Molina MD is Attending Physician. jmm 09:44 Eddie Marroquin, EREN is Primary Nurse. bp 09:47 CT Stone Protocol In Process Unspecified. EDMS 10:30 Patient has correct armband on for positive identification. Bed in low position. Call bp light in reach. Side rails up X2. Adult w/ patient. 10:30 Inserted saline lock: 20 gauge in right antecubital area, using aseptic technique. bp Blood collected. 11:29 US Abdomen Limited In Process Unspecified. EDMS 11:36 Ultrasound completed. Patient tolerated well. Notified SURVEILLANCE DIRECTOR/PETE MCNAMARA. sg3 12:17 No provider procedures requiring assistance completed. IV discontinued, intact, bp bleeding controlled, No redness/swelling at site. Pressure dressing applied. Administered Medications: 10:30 Drug: Ketorolac 30 mg Route: IVP; Site: right antecubital; bp 12:02 Follow up: Response: Pain is decreased zb Outcome: 12:01 Discharge ordered by . paul 12:17 Discharged to home ambulatory, with family. bp 12:17 Condition: stable 12:17 Discharge instructions given to patient, Instructed on discharge instructions, follow up and referral plans. medication usage, Demonstrated understanding of instructions, follow-up care, medications, Prescriptions given X 3. 12:18 Patient left the ED. bp Addendum: 04/19/2020 06:43 Addendum: Culture Results: Positive urine culture. No further action required. Bacteria d m5 sensitive to prescribed antibiotic. Signatures: Dispatcher [employer] Patria Everett, RN RN Mohna Cisneros PA PA jmm Martinez, Amelia as Williams, Irene, Eddie Padilla RN, RN RN Tanisha Boss Jade Diaz RN RN zb
--- NOTE | 2020-04-15 12:01 | EDPHYS ---
Physician Documentation [facility] Name: Becka Lorenzo Age: 44 yrs Sex: Female : 1975 Arrival Date: 04/15/2020 Time: 07:29 Bed 18 Private MD: ED Physician Dandre Molina HPI: 04/15 11:17 This 44 yrs old Female presents to ER via Ambulatory with complaints of Flank jmm Pain. 11:17 The patient complains of pain in the right flank. Onset: The symptoms/episode jmm began/occurred gradually. Modifying factors: The symptoms are alleviated by nothing. the symptoms are aggravated by nothing. This is a 44 year old female with a history of anxiety that presents to the ED with complaints of right flank pain which radiates to her abdomen. Denies fever, vomiting, diarrhea. . 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 - Social history:: Smoking status: Patient denies any tobacco usage or history of. ROS: 11:17 Constitutional: Negative for fever, chills, and weight loss, Cardiovascular: Negative jmm for chest pain, palpitations, and edema, Respiratory: Negative for shortness of breath, cough, wheezing, and pleuritic chest pain. 11:17 Abdomen/GI: Positive for abdominal pain. 11:17 All other systems are negative. Exam: 11:17 Constitutional: This is a well developed, well nourished patient who is awake, alert, jmm and in no acute distress. Head/Face: atraumatic. Eyes: EOMI, no conjunctival erythema appreciated ENT: Moist Mucus Membranes Neck: Trachea midline, Supple Chest/axilla: Normal chest wall appearance and motion. Cardiovascular: Regular rate and rhythm. No edema appreciated Respiratory: Normal respirations, no respiratory distress appreciated 11:17 Back: Normal ROM Skin: General appearance color normal MS/ Extremity: Moves all extremities, no obvious deformities appreciated, no edema noted to the lower extremities Neuro: Awake and alert, normal gait Psych: Behavior is normal, Mood is normal, Patient is cooperative and pleasant 11:17 Abdomen/GI: Inspection: abdomen appears normal, Bowel sounds: normal, Palpation: soft, moderate abdominal tenderness, in the right upper quadrant. Vital Signs: 08:42 BP 119 / 53; Pulse 70; Resp 16; Temp 97.8; Pulse Ox 100% on R/A; Weight 88.45 kg; iw Height 5 ft. 2 in. (157.48 cm); Pain 10/10; 10:30 BP 118 / 69; Pulse 57; Resp 17; Pulse Ox 99% ; bp 12:00 BP 110 / 61; Pulse 60; Resp 17; Pulse Ox 99% ; zb 08:42 Body Mass Index 35.67 (88.45 kg, 157.48 cm) MDM: 10:01 Patient medically screened. [facility] 12:00 Data reviewed: vital signs, nurses notes. Counseling: I had a detailed discussion with [facility] the patient and/or guardian regarding: the historical points, exam findings, and any diagnostic results supporting the discharge/admit diagnosis, lab results, the need for outpatient follow up, to return to the emergency department if symptoms worsen or persist or if there are any questions or concerns that arise at home. ED course: Patient is alert and non toxic in appearance in the ED. Patient advised to follow up with GI and otherwise given strict return precautions. Patient understood and agrees with the plan of care. . 04/15 09:07 Order name: Urine Microscopic Only 04/15 09:07 Order name: Urine Culture 04/15 09:07 Order name: Urine Dipstick--Ancillary (enter results); Complete Time: 10:06 [facility] 04/15 09:07 Order name: Urine --Ancillary (enter results); Complete Time: 10:06 [facility] 04/15 09:08 Order name: Urine Microscopic Only; Complete Time: 10:06 [facility] 04/15 09:08 Order name: Urine Culture [facility] 04/15 09:06 Order name: CT Stone Protocol; Complete Time: 10:06 04/15 09:07 Order name: Urine Dipstick-Ancillary (obtain specimen); Complete Time: 09:08 [facility] 04/15 10:13 Order name: Basic Metabolic Panel; Complete Time: 11:23 [facility] 04/15 10:13 Order name: CBC with Diff; Complete Time: 11:00 [facility] 04/15 10:13 Order name: Hepatic Function; Complete Time: 11:23 [facility] 04/15 10:13 Order name: Lipase; Complete Time: 11:23 [facility] 04/15 10:14 Order name: US Abdomen Limited; Complete Time: 11:58 [facility] 04/15 09:07 Order name: Urine Test (obtain specimen); Complete Time: 09:07 [facility] 04/15 10:13 Order name: IV Saline Lock; Complete Time: 10:47 [facility] 04/15 10:13 Order name: Labs collected and sent; Complete Time: 10:47 [facility] Administered Medications: 10:30 Drug: Ketorolac 30 mg Route: IVP; Site: right antecubital; bp 12:02 Follow up: Response: Pain is decreased zb Disposition: 13:23 Co-signature as Attending Physician, Dandre Molina MD. rn Disposition: 04/15/20 12:01 Discharged to Home. Impression: Unspecified abdominal pain, Urinary tract infection, site not specified. - Condition is Stable. - Discharge Instructions: Abdominal Pain, Adult, Urinary Tract Infection, Adult. - Prescriptions for Zofran ODT 4 mg Oral tablet,disintegrating - place 1 tablet by TRANSLINGUAL route every 4-6 hours; 20 tablet. Bentyl 20 mg Oral Tablet - take 2 tablet by ORAL route every 6 hours As needed; 40 tablet. Bactrim DS 800- 160 mg Oral Tablet - take 1 tablet by ORAL route every 12 hours for 10 days; 20 tablet. - Medication Reconciliation Form, Thank You Letter, Antibiotic Education, Prescription Opioid Use form. - Follow up: Private Physician; When: 2 - 3 days; Reason: Recheck today's complaints, Continuance of care, Re-evaluation by your physician. Signatures: Dispatcher [employer] EDMS Mohan Suarez PA PA Sera Baugh RN RN iw Nieto, Roman, MD MD rn Martinez, Eric [facility] Eddie Marroquin RN RN bp Brown, Zipporah RN zb Corrections: (The following items were deleted from the chart) 12:18 12:01 04/15/2020 12:01 Discharged to Home. Impression: Unspecified abdominal pain; bp Urinary tract infection, site not specified. Condition is Stable. Forms are Medication Reconciliation Form, Thank You Letter, Antibiotic Education, Prescription Opioid Use. Follow up: Private Physician; When: 2 - 3 days; Reason: Recheck today's complaints, Continuance of care, Re-evaluation by your physician. paul
[2020-04-15 12:25] VITALS: O2SAT 99
[2020-04-15 12:26] VITALS: TEMP 97.8
[2020-04-15 12:27] VITALS: BP 110/61
== END 2020-04-15 12:18 | disposition home or self-care (01) ==
LOC: ER 07:28
DX: N39.0 Urinary tract infection, site not specified (principal); Z88.1 Allergy status to other antibiotic agents; Z88.5 Allergy status to narcotic agent
CPT/HCPCS: 36415; 74176; 76377; 76705; 80048; 80076; 81003; 81015; 81025; 83690; 85025; 87077; 87086; 87088; 87186; 96374; 99284

== ENCOUNTER 2020-05-07 15:52 | Emergency (ER) | payer BC ==
--- OUTSIDE RECORDS SUMMARY | 2020-05-07 15:58 | XMS REPORT ---
:1975 Author Organization [facility] Address [address] [place], [address] [place] [address] Care Team Providers Name Role Phone Arnaud James Unavailable [phone] PROBLEMS Type Condition ICD9-CM TQB02-FM Onset Condition SNOMED Code Notes Code Code Dates Status Problem Allergic J30.9 Active 58186739 sinusitis Problem Chronic K29.50 Active 6482605 gastritis without bleeding, unspecified gastritis type Problem Depression with F41.8 Active 316890590 anxiety Problem Body mass index Z68.41 Active 942353864 (BMI) 40.0-44.9, adult Problem Morbid (severe) E66.01 Active 63828307897916 obesity due to excess calories Problem Vitamin D E55.9 Active 95361745 deficiency disease ALLERGIES Allergen (clinical drug Drug/Non Drug Allergy Reaction Allergy Type Onset Date Status ingredient) documented on EMR morphine Morphine Sulfate(NDC Unknown Drug Allergy Ac tive Code:[address]-70) acetaminophen / Hydrocodone-Acetamino Unknown Drug Allergy Active hydrocodone phen(NDC Code:[address]-57) amoxicillin Amoxicillin(NDC yeast Drug Allergy Active Code:[address]-06) ENCOUNTERS from 1975 to 2020-04-30 Encounter Location Date Provider Diagnosis [facility] [address] [place] 11 Apr, 2020 Arnaud James Vit [facility] [address], defic[place]cy E53.8 [place] [address] IMMUNIZATIONS Vaccine Route Administration Date Status Vitamin B12 (Cyanocobalamin) IM Intramuscular Apr 30, 2020 Ad ministered Vitamin B12 (Cyanocobalamin) IM Intramuscular Apr 11, [...] No Information VITAL SIGNS Height 62 in Apr, Weight 205.7 lbs Apr, Temperature 97.8 degrees Fahrenheit Apr, BMI 37.62 kg/m2 Apr, Oximetry 98 % Apr, Respiratory Rate 21 /min Apr, Blood pressure systolic 115 mm Hg Apr, Blood pressure diastolic 55 mm Hg Apr, MEDICATIONS Medication SIG (Take, Route, Frequency, Notes Start Date End Javi e Status Duration) Omeprazole 40 MG 1 capsule 30 minutes before Mar, Active morning meal Orally Once a day for 30 day(s) Vitamin D3 50,000 1 tablet Orally once a week for May, Active 90 days PROCEDURES No Information RESULTS No Results REASON FOR VISIT B12 injection MEDICAL (GENERAL) HISTORY Type Description Date Surgical History C sections 1999,2004,2009 Goals Section No Information Health Concerns No Information MEDICAL EQUIPMENT No Information MENTAL STATUS No Information FUNCTIONAL STATUS No Information ASSESSMENTS Encounter Date Diagnosis Assessment Notes Treatment Notes Treatm ent Clinical Notes Apr, Vitamin B12 -- Patient was deficiency discussed with (ICD-10 - E53.8) -- Medication reviewed and updated. - B12 injection given in clinic. -- Dietary and Lifestyle modifications addressed regarding diet, exercise and weight management. -- Treatment options, risks and benefits, side effects reviewed in detail. -- Advised on signs/symptoms to monitor and when to call clinic and/or visit the nearest ER. Patient verbalized understanding and agreeable with plan PLAN OF TREATMENT Treatment Notes Assessment Notes Clinical Notes Vitamin B12 deficiency -- Patient was discussed with Dr.Pate leong -- Medication reviewed and updated. - B12 injection given in clinic. -- Dietary an d Lifestyle modifications addressed regard ing diet, exercise and weight management. -- Treatment options, risks and benefits, s sara effects reviewed in detail. -- Advised o n signs/symptoms to monitor and when to ca ll clinic and/or visit the nearest ER. Maria Dolores ent verbalized understanding and agreeable w ith plan Next Appt Details Provider Name:Arnaud James, 2020-05-09 11:40:00 AM, [address] [place], [address], [place], [address], Insurance Providers Payer Name Payer Payer Insured Name Patient Coverage Covera ge End Address Phone Relationship to Start Date Javi e Insured [employer] [phone] LorenzoShady self 2019 and Blue [id number] [facility] [id number]
--- OUTSIDE RECORDS SUMMARY | 2020-05-07 15:58 | XMS REPORT | Continuity of Care Document ---
:1975 Author Organization [facility] t Address [address] [place] [address] Care Team Providers Name Role Phone Prasad DO Attending Clinician Aurelio CALL OR CONTACT CENTRE COACH Attending Clinician Ana Paula DELANEY M Attending Clinician Pob1, Care Clinic Attending Clinician Unavailable Problems This patient has no known problems. Allergies, Adverse Reactions, Alerts Allergy Allergy Status Severity Reaction(s) Onset Inactive Treating Comm ents Source Name Type Date Date Clinician Morphine Adverse Active Info Not [facility] S[facility] Reaction Available [facility] Hydrocod Adverse Active Info Not [facility] one-Acet Reaction Available Matthew es - aminophe [facility] Amoxicil Adverse Active yeast [facility] an[facility] Reaction [facility] Medications Ordered Filled Start Stop Current Ordering Indication Dosage Frequency Signature Comments Components Source Medication Medication Date Date Medication? Clinician (SIG) Name Name Zithromax Zithromax 2019- No Arnaud [address] [facility] Z-Rd Z-Rd 307-04 Jacob today, [facility] - 00:00: 00:00 then 1 Memoria 00 :00 tablet l once a day [facility] Vitamin D3 Vitamin D3 2019- No Arnaud [address] [facility] 06-01 James [facility] - 00:00: 00:00 Memoria 00 :00 l Outpati ent Clinics Procedures This patient has no known procedures. Encounters Start End Encounter Admission Attending Care Care Encounter Source Date/Time Date/Time Type Type Clinicians Facility Department ID 2020-04-30 2020-04-[address] [facility] [id number] [facility] 2020-04-11 2020-04-11 Out[facility] [id number] [facility] 2020-03-29 2020-03-29 [facility] [id number] [facility] 2020-02-29 2020-02-29 [facility] [id number] [facility] 2020-02-28 2020-02-[address] [facility] [id number] [facility] 2019-10-31 2019-10-31 [facility] [id number] 12:06:00 12:06:00 t [place] [facility] Family Medicine l Medicine Outpati ent Clinics 2019-10-26 2019-10-26 [facility] [id number] 14:00:00 14:00:00 t [facility] s [facility] Medicine l Medicine Outpati ent Clinics 2019-10-25 2019-10-25 [facility] [id number] 13:09:00 13:09:00 t [place] [facility] Medicine l Medicine Outpati ent Clinics 2019-10-12 2019-10-13 Emergency Singer [facility] [id number] 23:48:45 01:31:00 Ander Hurst [id number] [place] 4.2.7.2.686 [place] [id number] 2019-07-30 2019-07-30 Telephone Aurelio [facility] [id number] 00:00:00 00:00:00 [facility] [id number] [place] [id number] Professio [id number] nal [facility] Office Building One 2019-07-29 2019-07-29 Javi JENSEN [id number] 00:00:00 00:00:00 , Beth ESCOBEDO [id number] [facility] 4.2.7.2.686 [id number] 2019-07-28 2019-07-28 Urgent Pob1, Acute [facility] [id number] 08:59:05 09:39:16 [facility] [id number] [place] [id number] Profzenonio [id number] nal 044 Office Building One 2019-07-01 2019-07-01 [facility] [id number] 13:59:00 13:59:00 [employer]orts [facility] Medicine Outpati ent Clinics 2019-06-30 2019-06-30 [facility] [id number] 10:00:00 10:00:00 [employer] [facility] Medicine Outpati ent Clinics 2019-06-01 2019-06-01 [facility] [id number] 08:22:00 08:22:00 t Impact Radius [facility] Medicine Outpati ent Clinics 2019-05-30 2019-05-30 [facility] [id number] 09:00:00 09:00:00 t Impact Radius [facility] Medicine Outpati ent Clinics Results This patient has no known results.
--- NOTE | 2020-05-07 18:28 | ER ---
Nurse's Notes [facility] Name: Becka Lorenzo Age: 44 yrs Sex: Female : 1975 Arrival Date: 05/07/2020 Time: 16:11 Bed Waiting Private MD: Diagnosis: Presentation: 05/07 16:11 Chief complaint: Patient states: I hurt my leg since last night, feels like it's a ca1 nerve that hurts from my behind on the R side to my R leg. Denies injury. Reports lifting and pulling furniture yesterday. Coronavirus screen: Client denies travel out of the [place] in the last 14 days. At this time, the client does not indicate any symptoms associated with coronavirus-19. Ebola Screen: Patient negative for fever greater than or equal to 101.5 degrees Fahrenheit, and additional compatible Ebola Virus Disease symptoms Patient denies exposure to infectious person. Patient denies travel to an Ebola-affected area in the 21 days before illness onset. No symptoms or risks identified at this time. Initial Sepsis Screen: Does the patient meet any 2 criteria? No. Patient's initial sepsis screen is negative. Does the patient have a suspected source of infection? No. Patient's initial sepsis screen is negative. Risk Assessment: Do you want to hurt yourself or someone else? Patient reports no desire to harm self or others. Onset of symptoms was May 06, 2020. 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 - Social history:: Smoking status: Patient denies any tobacco usage or history of. Assessment: 18:26 Reassessment: pt not in lobby. iw Vital Signs: 16:11 BP 113 / 67; Pulse 75; Resp 15 S; Temp 98(TE); Pulse Ox 98% on R/A; Weight 88.45 kg ca1 (R); Height 5 ft. 2 in. (157.48 cm) (R); Pain 6/10; 16:11 Body Mass Index 35.67 (88.45 kg, 157.48 cm) ca1 ED Course: 16:11 Patient arrived in ED. as 16:14 Triage completed. ca1 16:14 Arm band placed on right wrist. ca1 18:25 Mohan Suarez PA is PHCP. paul 18:25 Edward Casarez MD is Attending Physician. paul Administered Medications: No medications were administered Outcome: 18:27 Eloped from waiting room, before seeing physician Time discovered patient gone: April at 18:27 18:27 Patient left the ED. iw Signatures: Mohan Suarez PA PA jmm Martinez, Amelia as Williams, Irene, RN RN iw Jonelle Decker RN RN ca1
[2020-05-07 19:14] VITALS: BP 113/67; TEMP 98; O2SAT 98
== END 2020-05-07 18:27 | disposition left against medical advice (07) ==
LOC: ER 15:52
DX: M79.604 Pain in right leg (principal); X50.0XXA Overexertion from strenuous movement or load, initial encounter; F41.9 Anxiety disorder, unspecified; Z53.20 Procedure and treatment not carried out because of patient's decision for unspecified reasons
CPT/HCPCS: 99281

== ENCOUNTER 2021-07-31 09:59 | Emergency (ER) | payer OTHER ==
--- OUTSIDE RECORDS SUMMARY | 2021-07-31 10:02 | XMS REPORT | Continuity of Care Document ---
:1975 Author Organization [facility] t Address [address] [place] [address] Care Team Providers Name Role Phone No Primary Care Physician Unavailable Robert James Attending Clinician Unavailable SHAQ Attending Clinician Unavailable EBRAGAYATRIM Attending Clinician Unavailable Gerson JASON Attending Clinician Unavailable Pema JASON Attending Clinician Unavailable Robert CRUZ Attending Clinician Unavailable Singer BATRES Attending Clinician Ebrahirobert CARBON PRINTER Attending Clinician Robert Goss MD Attending Clinician Pob1, Care Clinic Attending Clinician Unavailable Braeden MINAYA Attending Clinician Unavailable Payers Payer Name Policy Type Policy Number Effective Date Expiration Date S ishaan [facility] - [id number] 2019 OUT OF STATE 00:00:00 [facility] [id number] 2020 HEALTH PLAN 00:00:00 Problems This patient has no known problems. Allergies, Adverse Reactions, Alerts Allergy Allergy Status Severity Reaction(s) Onset Inactive Treating Comm ents Source Name Type Date Date Clinician HYDROCOD DRUG Active Hallucinates 2019-0 Un jaimie ONE INGREDI 07-27 [facility]y [facility] 00:[facility]: [place] [facility] Hydrocod Allergy Active Hallucinatio 2019-0 U T one to ns 07-27 Health [facility] 00:00: e 00 Amoxicil Allergy Active Rash [facility] anat to 12 Health substanc 00:00: e 00 Hydrocod Drug Active Rash UT one-Acet Allergy 10 Health aminophe 00:00: n 00 MORPHINE DRUG Active High Anaphylaxis Uni vers INGREDI 08-03 ity of 00:00: [place] [facility] Morphine Allergy Active Shortness of U T to breath 08-03 Health substanc 00:00: e 00 Morphine Adverse Active Info Not [facility] Sulfate Reaction Available [facility] Hydrocod Adverse Active Info Not [facility] one-Acet Reaction Available Matthew es - aminophe Memoria n l [facility] Clinics Amoxicil Adverse Active yeast [facility] an[facility] Reaction [facility] Social History Social Habit Start Date Stop Date Quantity Comments Source Exposure to Not sure [facility] SARS-CoV-2 (event) Tobacco use and 2020-10-29 2020-10-29 Never used [facility] exposure 00:00:00 00:00:00 Alcohol intake 2020-10-29 2020-10-29 .29 /d [facility] 00:00:00 00:00:00 Sex Ass[birth year] [facility] 00:00:00 00:00:00 Smoking Status Start Date Stop Date Source Light tobacco smoker 2020-10-29 00:00:00 [facility] Medications Ordered Filled Start Stop Current Ordering Indication Dosage Frequency Signature Comments Components Source Medication Medication Date Date Medication? Clinician (SIG) Name Name metroNIDAZO 2020- No [id number] 500mg Q.5D Take 1 UT LE (Flagyl) 12-20 tablet Healt h 500 MG 00:00: 04:59 (500 mg tablet 00 :00 total) by mouth 2 (two) times a day for 7 days. metroNIDAZO 2020- No [id number] 500mg Q.5D Take 1 UT LE (Flagyl) 12-2010 tablet Healt h 500 MG 00:00: 04:59 (500 mg tablet 00 :00 total) by mouth 2 (two) times a day for 7 days. fluconazole 2020- No [id number] 150mg Take 1 UT (Diflucan) 8-30 08-31 tablet Health 150 MG 00:00: 04:59 (150 mg tablet 00 :00 total) by mouth 1 (one) time for 1 dose. Repeat in 7 days if symptoms persist. fluconazole No [id number] 150mg Take 1 UT (Diflucan) 12-17 tablet Health 150 MG 00:00: 04:59 (150 mg tablet 00 :00 total) by mouth 1 (one) time for 1 dose. Repeat in 7 days if symptoms persist. Zithromax Zithromax Arnaud [address] [facility] [facility] Z-Rd Z-Rd 307-04 James today, [facility] - 00:00: 00:00 then 1 Memoria 00 :00 tablet l once a day [facility] Vitamin D3 Vitamin D3 Arnaud [address] [facility] 06-01 James [facility] - 00:00: 00:00 Memoria 00 :00 l [facility] Clinics Vital Signs Vital Name Observation Time Observation Value Comments Source Systolic blood pressure 2020-12-17 18:11:00 106 mm[Hg] [facility] Diastolic blood pressure 2020-12-17 18:11:00 69 mm[Hg] [facility] Heart rate 2020-12-17 18:11:00 76 /min [facility] Body temperature 2020-12-17 18:11:00 36.44 Yamileth [facility] Body weight 2020-12-17 18:11:00 103.42 kg [facility] BMI 2020-12-17 18:11:00 41.70 kg/m2 [facility] Systolic blood pressure 2020-10-29 16:19:00 114 mm[Hg] [facility] Diastolic blood pressure 2020-10-29 16:19:00 70 mm[Hg] [facility] Heart rate 2020-10-29 16:19:00 85 /min [facility] Body temperature 2020-10-29 16:19:00 36.94 Yamileth [facility] Body height 2020-10-29 16:19:00 157.5 cm [facility] Body weight 2020-10-29 16:19:00 100.245 [facility] BMI 2020-10-29 16:19:00 40.42 kg/m2 [facility] Procedures This patient has no known procedures. Encounters Start End Encounter Admission Attending Care Care Encounter Source Date/Time Date/Time Type Type Clinicians Facility Department ID 2021-05-15 Outpatient [facility], [facility] [id number] [facility] [address] 12:27:12 Arnaud 38665 [facility] 2021-05-15 [facility] [id number] 12:25:33 Arnaud 97030 [facility] 2021-05-15 [facility] [id number] 12:24:48 Arnaud 73843 [facility] 2021-05-15 [facility] [id number] 12:22:12 Arnaud 74965 [facility] 2021-05-15 [facility] [id number] 11:13:26 Arnaud 04853 [facility] 2021-05-15 [facility] [id number] 11:12:29 Arnaud 60127 [facility] 2021-05-15 [facility] [id number] 11:07:25 Arnaud 72303 [facility] 2021-02-15 Emergency [facility] [id number] Univers 02:46:29 [facility] 2020-09-20 Outpatient SHAQ, [facility] [id number] [place] 14:05:53 [facility] 2021-07-15 2021-07-15 amb[facility] [id number] 2021-05-28 2021-05-28 ambulatory [facility] [id number] [facility] 2021-04-11 2021-04-11 Outpatient R [facility] [id number] Univers 10:40:00 10:40:00 [id number] [facility] 2021-04-11 2021-04-11 Outpatient Ariel CAREY [facility] [id number] Univers 10:40:00 10:40:00 JOEYDENISE [facility] 2020-12-20 2020-12-20 Telephone Tiffany iNeto DENNIS [facility] [id number] [place] 00:00:00 00:00:00 Tiffany Nieto [place] [id number] Health [place] [id number] [place] [address] [id number] AND 2 WOMENS 2020-12-20 2020-12-20 Orders Katya Mcadams UTP [facility] [id number] [place] 00:00:00 00:00:00 Only Katya Mcadams [place] [id number] Health [place] [facility] [id number] [place] 1 [id number] AND 2 WOMENS 2020-12-17 2020-12-17 Office DENNIS Carriz[place] [id number] [place] 13:00:30 13:10:30 Visit Nola PILLAI 350.1.13.58 He alth [place] 9.2.7.2.686 MULTI [id number] SPECIALTY 6 2020-10-29 2020-10-29 Office DENNIS [place] [id number] [place] 11:03:01 11:47:44 Visit Nola GUZMANA 350.1.13.58 He [place]th [place] 9.2.7.2.686 MULTI [id number] SPECIALTY 6 2020-08-21 2020-08-21 Outpatient Ariel CRUZ [facility] [id number] Univers 13:50:00 13:50:00 YIMI [facility] 2020-07-24 2020-07-24 Outpatient Ariel CRUZ [facility] [id number] Univers 13:50:00 13:50:00 YIMI [facility] 2020-04-30 2020-04-30 Outpatient [facility] [id number] [facility] St 00:00:00 00:00:00 Josefa Oakley ent Clinics 2020-04-11 2020-04-11 Outpatient [facility] [id number] [facility] 2020-03-29 2020-03-29 Outpatient [facility] [id number] [facility] 2020-02-29 2020-02-29 Outpatient [facility] [id number] [facility] 2020-02-28 2020-02-28 Outpatient [facility] [id number] [facility] 2019-10-31 2019-10-31 [facility] [id number] 12:06:00 12:06:00 t [employer] Lu s - Drive [facility] Family Medicine l Medicine Outpati ent Clinics 2019-10-26 2019-10-26 [facility] [id number] 14:00:00 14:00:[address] [facility] [address] Gerald s - Road [facility] Medicine l Medicine Outpati ent Clinics 2019-10-25 2019-10-25 [facility] [id number] 13:09:00 13:09:00 t [employer] [facility] - Drive [facility] Medicine l Medicine Outpati ent Clinics 2019-10-12 2019-10-13 [facility] [id number] 23:48:45 01:31:00 Ander Hurst [id number] [place] 4.2.7.2.686 [place] [id number] [id number] 2019-07-30 2019-07-30 Telephone HARSH Carey [id number] 00:00:00 00:00:00 [facility] [id number] [place] 4.2.7.2.686 [facility] [id number] nal 044 Office Building One 2019-07-29 2019-07-29 Telephone Ana Paula JENSEN 1.2.840.114 [id number] 00:00:00 00:00:00 , Beth ESCOBEDO 350.1.13.10 [facility] 4.2.7.2.686 [id number] 019 2019-07-28 2019-07-28 Urgent Pob1, Acute [facility] [id number] 08:59:05 09:39:16 [facility] Care [facility] [id number] [place] [id number] Professio [id number] nal 044 Office Building One 2019-07-28 2019-07-28 Outpatient R REI, [facility] [id number] Univers 09:20:00 09:20:00 ALLYSSA gerber [facility] 2019-07-01 2019-07-01 [facility] [id number] 13:59:00 13:59:[address] [employer] [facility] Medicine Outpati ent Clinics 2019-06-30 2019-06-30 [facility] [id number] 10:00:00 10:00:[address] [facility] Medicine Outpati ent Clinics 2019-06-01 2019-06-01 [facility] [id number] 08:22:00 08:22:[address] [facility] Medicine Outpati ent Clinics 2019-05-30 2019-05-30 [facility] [id number] 09:00:00 09:00:00 t [employer] [facility] Results This patient has no known results.
[2021-07-31] MEDS ORDERED: ONDANSETRON 4 MG/2 ML VIAL ONE (10:49)
[2021-07-31] MEDS ORDERED: NA CHLORIDE 0.9% 1,000 ML ONE (10:49)
[2021-07-31] MEDS ORDERED: FAMOTIDINE 20 MG/2 ML VIAL IV ONE (10:50)
[2021-07-31 10:53] LABS: Urine Blood Trace-intact (Negative); Urine Glucose Negative (Negative); Urine Protein Negative (Negative); Urine Specific Gravity >=1.030 (1.005-1.030)
[2021-07-31 11:14] LABS: Absolute Lymphocytes (CBC) 2.9 K/uL (0.7-4.9); Hematocrit 41.2 % (36.0-45.0); Lymphocytes % 35.2 % (15.3-44.8); RBC Red Blood Cell Count 4.41 M/uL (3.86-4.86)
[2021-07-31 11:26] LABS: ALT/SGPT 28 U/L (12-78); AST/SGOT 17 U/L (15-37); Albumin 3.8 g/dL (3.4-5.0); Alkaline Phosphatase 84 U/L (45-117); BUN Blood Urea Nitrogen 15 mg/dL (7-18); Bicarbonate 25 mmol/L (21-32); Bilirubin Total 0.4 mg/dL (0.2-1.0); Glucose Level 88 mg/dL (74-106); Lipase 70 U/L (73-393); Potassium 4.1 mmol/L (3.5-5.1); Protein, Total 8.1 g/dL (6.4-8.2); Sodium Level 137 mmol/L (136-145)
[2021-07-31 11:37] LABS: Urine Bacteria <20 /HPF (<20); Urine RBC <5 /HPF (NONE SEEN)
[2021-07-31 11:38] LABS: Urine Mucus SLIGHT /HPF (NONE SEEN)
--- NOTE | 2021-07-31 12:00 | RAD REPORT ---
EXAM DESCRIPTION: CT - Abdomen Pelvis W Contrast - 07/31/2021 11:42 am CLINICAL HISTORY: Abdominal pain COMPARISON: 2019 TECHNIQUE: Computed axial tomography of the abdomen pelvis was obtained. 100 cc Isovue-300 was admin istered intravenously. Oral contrast was not requested which limits evaluation of bowel. All CT scans are performed using dose optimization technique as appropriate and may include automated exposure control or mA/KV adjustment according to patient size. FINDINGS: Fatty liver. Small hepatic cyst. Small right renal cyst. Tiny nonobstructing left renal calculus. Spleen, pancreas, and adrenals appear unremarkable. There is no evidence of diverticulitis. Normal appendix. No adnexal mass. Small umbilical hernia IMPRESSION: No acute abnormality is displayed.
--- NOTE | 2021-07-31 13:30 | ER ---
Nurse's Notes [facility] Name: Becka Lorenzo Age: 45 yrs Sex: Female : 1975 Arrival Date: 07/31/2021 Time: 10:00 Bed Waiting Private MD: Diagnosis: Lower abdominal pain, unspecified;Nausea with vomiting, unspecified;Diarrhea, unspecified Presentation: 07/31 10:17 Chief complaint: Patient states: Lower abd pain for 1 week with N/V/D, worse today. ll1 Sent in by the [facility] for further eval. Coronavirus screen: Vaccine status: Patient reports receiving the 1st dose of the Covid vaccine. Client denies travel out of the [place] in the last 14 days. diarrhea, fatigue, nausea, vomiting. Client presents with at least one sign or symptom that may indicate coronavirus-19. Standard/surgical mask placed on the client. Ebola Screen: Patient denies travel to an Ebola-affected area in the 21 days before illness onset. Initial Sepsis Screen: Does the patient meet any 2 criteria? No. Patient's initial sepsis screen is negative. Does the patient have a suspected source of infection? No. Patient's initial sepsis screen is negative. Risk Assessment: Do you want to hurt yourself or someone else? Patient reports no desire to harm self or others. Onset of symptoms was July 23, 2021. 10:17 Method Of Arrival: Ambulatory ll1 10:17 Acuity: LOW 3 ll1 Triage Assessment: 10:19 General: Appears in no apparent distress. Behavior is calm, cooperative, appropriate ll1 for age. Pain: Complains of pain in lower abd Quality of pain is described as aching. GI: Reports lower abdominal pain, diarrhea, nausea, vomiting. : Reports urinary frequency. 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 - Social history:: Smoking status: Patient denies any tobacco usage or history of. Screenin:16 Abuse screen: Denies threats or abuse. Nutritional screening: No deficits noted. ll1 Tuberculosis screening: No symptoms or risk factors identified. Fall Risk Total Cruz Fall Scale indicates No Risk (0-24 pts). Assessment: 10:45 Reassessment: No changes from previously documented assessment. Patient and/or family ll1 updated on plan of care and expected duration. Pain level reassessed. Patient is alert, oriented x 3, equal unlabored respirations, skin warm/dry/pink. 12:00 Reassessment: No changes from previously documented assessment. Patient and/or family ll1 updated on plan of care and expected duration. Pain level reassessed. Patient is alert, oriented x 3, equal unlabored respirations, skin warm/dry/pink. 13:00 Reassessment: No changes from previously documented assessment. Patient and/or family ll1 updated on plan of care and expected duration. Pain level reassessed. Patient is alert, oriented x 3, equal unlabored respirations, skin warm/dry/pink. Patient states feeling better. 14:00 Reassessment: No changes from previously documented assessment. Patient and/or family ll1 updated on plan of care and expected duration. Pain level reassessed. Patient is alert, oriented x 3, equal unlabored respirations, skin warm/dry/pink. 14:16 GI: Bowel sounds present X 4 quads. Abd is soft and non tender X 4 quads. ll1 Vital Signs: 10:17 BP 109 / 52; Pulse 72; Resp 16; Temp 98.2; Pulse Ox 100% ; Weight 104.78 kg; Height 5 ll1 ft. 2 in. (157.48 cm); Pain 8/10; 14:14 BP 104 / 52; Pulse 73; Resp 16; Pulse Ox 100% ; ll1 10:17 Body Mass Index 42.25 (104.78 kg, 157.48 cm) ll1 ED Course: 10:00 Patient arrived in ED. mr 10:18 Triage completed. ll1 10:20 Arm band placed on. ll1 10:27 Raymond Desai DO is Attending Physician. ms3 10:40 Inserted saline lock: 20 gauge in left wrist, using aseptic technique. Blood collected. ll1 11:44 CT Abd/Pelvis - IV Contrast Only In Process Unspecified. EDMS 14:15 No provider procedures requiring assistance completed. IV discontinued, intact, ll1 bleeding controlled, No redness/swelling at site. Pressure dressing applied. 14:16 Patient has correct armband on for positive identification. Bed in low position. Call ll1 light in reach. Cardiac monitoring not applicable on this patient. Administered Medications: 10:45 Drug: NS 0.9% 1000 ml Route: IV; Rate: 1 bolus; Site: left wrist; ll1 14:16 Follow up: Response: No adverse reaction; IV Status: Completed infusion; IV Intake: ll1 850ml 10:45 Drug: Pepcid (famotidine) 20 mg Route: IVP; Site: left wrist; ll1 14:17 Follow up: Response: No adverse reaction ll1 10:45 Drug: Zofran (Ondansetron) 4 mg Route: IVP; Site: left wrist; ll1 14:17 Follow up: Response: No adverse reaction ll1 Intake: 14:16 IV: 850ml; Total: 850ml. ll1 Outcome: 13:29 Discharge ordered by . ms3 14:16 Discharged to home ambulatory. ll1 14:16 Condition: stable 14:16 Discharge instructions given to patient, Instructed on discharge instructions, follow up and referral plans. medication usage, Demonstrated understanding of instructions, follow-up care, medications, Prescriptions given X 1. 14:17 Patient left the ED. 1 Signatures: Dispatcher [employer] ISMAELCT Glenda Moreno Lynsay, EREN RN ll1 Raymond Deasi DO DO ms3
--- NOTE | 2021-07-31 13:30 | EDPHYS ---
Physician Documentation [facility] Name: Becka Lorenzo Age: 45 yrs Sex: Female : 1975 Arrival Date: 07/31/2021 Time: 10:00 Bed Waiting Private MD: ED Physician Raymond Desai HPI: 07/31 10:40 This 45 yrs old Female presents to ER via Ambulatory with complaints of ms3 Abdominal Pain, Vomiting, Diarrhea. 10:40 The patient presents to the emergency department with nausea, that is moderate, ms3 vomiting, diarrhea. Onset: The symptoms/episode began/occurred acutely, 1 week(s) ago. Possible causes: unknown. The symptoms are aggravated by nothing. The symptoms are alleviated by nothing. Associated signs and symptoms: Pertinent positives: abdominal pain, nausea, vomiting, Pertinent negatives: fever. Severity of symptoms: At their worst the symptoms were moderate in the emergency department the symptoms are unchanged Pain is currently a 8 / 10. 5-year-old female with past medical history of anxiety presents for right lower quadrant abdominal pain that she rates an 8/10 and describes as being sharp that is been ongoing for 1 week. Patient states she has taken Motrin with improvement. Patient denies inciting factors. Patient endorses nausea, vomiting, diarrhea. Patient denies sick contacts.. 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 - Social history:: Smoking status: Patient denies any tobacco usage or history of. ROS: 10:40 Constitutional: Negative for fever, and chills. ENT: Negative for injury, pain, and ms3 discharge, Neck: Negative for injury, pain, and swelling, Cardiovascular: Negative for chest pain, and palpitations. Respiratory: Negative for shortness of breath, cough, wheezing, and pleuritic chest pain, Back: Negative for injury and pain, MS/Extremity: Negative for injury and deformity, Skin: Negative for injury, rash, and discoloration. 10:40 Abdomen/GI: Positive for abdominal pain, nausea, vomiting, and diarrhea. 10:40 All other systems are negative. Exam: 10:40 Constitutional: This is a well developed, well nourished patient who is awake, alert, ms3 and in no acute distress. Head/Face: Normocephalic, atraumatic. Neck: Trachea midline, no cervical lymphadenopathy. Supple, full range of motion without nuchal rigidity, or vertebral point tenderness. No Meningismus. Chest/axilla: Normal chest wall appearance and motion. Nontender with no deformity. Cardiovascular: Regular rate and rhythm with a normal S1 and S2. No gallops, murmurs, or rubs. Normal PMI, no JVD. No pulse deficits. Respiratory: Lungs have equal breath sounds bilaterally, clear to auscultation and percussion. No rales, rhonchi or wheezes noted. No increased work of breathing, no retractions or nasal flaring. Back: No spinal tenderness. No costovertebral tenderness. Full range of motion. Skin: Warm, dry with normal turgor. Normal color with no rashes, no lesions, and no evidence of cellulitis. MS/ Extremity: Pulses equal, no cyanosis. Neurovascular intact. Full, normal range of motion. Psych: Awake, alert, with orientation to person, place and time. Behavior, mood, and affect are within normal limits. 10:40 Abdomen/GI: Inspection: abdomen appears normal, Bowel sounds: normal, Palpation: moderate abdominal tenderness, in the right lower quadrant. Vital Signs: 10:17 BP 109 / 52; Pulse 72; Resp 16; Temp 98.2; Pulse Ox 100% ; Weight 104.78 kg; Height 5 ll1 ft. 2 in. (157.48 cm); Pain 8/10; 14:14 BP 104 / 52; Pulse 73; Resp 16; Pulse Ox 100% ; ll1 10:17 Body Mass Index 42.25 (104.78 kg, 157.48 cm) ll1 MDM: 10:40 Differential diagnosis: Nonspecific abd pain, appendicitis, diverticulitis. ms3 10:43 Patient medically screened. ms3 13:51 Data reviewed: vital signs, nurses notes, lab test result(s), radiologic studies. ms3 Counseling: I had a detailed discussion with the patient and/or guardian regarding: the historical points, exam findings, and any diagnostic results supporting the discharge/admit diagnosis, lab results, radiology results, the need for outpatient follow up, to return to the emergency department if symptoms worsen or persist or if there are any questions or concerns that arise at home. ED course: Discussed labs, CT scan, physical exam findings with patient. Patient to follow-up with primary care physician in 2 to 3 days. Patient understands and agrees with plan. All questions were answered. Return precautions discussed include worsening symptoms, or any other concerns. On evaluation patient is alert and oriented x4, no apparent distress, nontoxic, tolerating p.o.. 07/31 10:40 Order name: CBC with Diff; Complete Time: 13:26 ms3 07/31 10:40 Order name: CMP; Complete Time: 13:26 ms3 07/31 10:40 Order name: Lipase; Complete Time: 13:26 ms3 07/31 10:40 Order name: Urine Microscopic Only; Complete Time: 13: ms3 07/31 10:53 Order name: Urine Dipstick-Ancillary; Complete Time: 13:26 EDMS 07/31 10:40 Order name: CT Abd/Pelvis - IV Contrast Only; Complete Time: 13:26 ms3 07/31 10:40 Order name: IV Saline Lock; Complete Time: 10:43 ms3 07/31 10:40 Order name: Labs collected and sent; Complete Time: 10:42 ms3 07/31 10:40 Order name: Urine Dipstick-Ancillary (obtain specimen); Complete Time: 10:42 ms3 07/31 10:40 Order name: Urine Test (obtain specimen); Complete Time: 10:42 ms3 Administered Medications: 10:45 Drug: NS 0.9% 1000 ml Route: IV; Rate: 1 bolus; Site: left wrist; ll1 14:16 Follow up: Response: No adverse reaction; IV Status: Completed infusion; IV Intake: ll1 850ml 10:45 Drug: Pepcid (famotidine) 20 mg Route: IVP; Site: left wrist; ll1 14:17 Follow up: Response: No adverse reaction ll1 10:45 Drug: Zofran (Ondansetron) 4 mg Route: IVP; Site: left wrist; ll1 14:17 Follow up: Response: No adverse reaction ll1 Disposition Summary: 07/31/21 13:29 Discharge Ordered Location: Home ms3 Condition: Stable ms3 Diagnosis - Lower abdominal pain, unspecified ms3 - Nausea with vomiting, unspecified ms3 - Diarrhea, unspecified ms3 Discharge Instructions: - Discharge Summary Sheet ms3 - Abdominal Pain, Adult ms3 Forms: - Medication Reconciliation Form ms3 - Thank You Letter ms3 - Work release form mh5 - Antibiotic Education ms3 - Prescription Opioid Use ms3 Prescriptions: - Zofran 4 mg Oral Tablet - take 1 tablet by ORAL route every 8 hours As needed; 20 tablet; Refills: 0, ms3 Product Selection Permitted Signatures: Dispatcher [employer] Татьяна Engel RN RN ll1 Raymond Desai DO DO ms3
[2021-07-31 14:35] VITALS: TEMP 98.2; O2SAT 100
[2021-07-31 14:37] VITALS: BP 104/52
== END 2021-07-31 14:17 | disposition home or self-care (01) ==
LOC: ER 09:59
DX: R11.2 Nausea with vomiting, unspecified (principal); R19.7 Diarrhea, unspecified; Z88.0 Allergy status to penicillin; Z88.1 Allergy status to other antibiotic agents; Z88.5 Allergy status to narcotic agent
CPT/HCPCS: 85025; 36415; 83690; 80053; 74177; Q9967; J7030; J2405; 81003; 81015

== ENCOUNTER 2022-03-16 15:08 | Emergency (ER) | payer OTHER ==
--- OUTSIDE RECORDS SUMMARY | 2022-03-16 15:12 | XMS REPORT | Continuity of Care Document ---
:1975 Author Organization [facility] t Address [address] [place] [address] Care Team Providers Name Role Phone No MD, Pcp Primary Care Physician Unavailable Arnaud James Attending Clinician Unavailable NOLA NEW Attending Clinician Unavailable MAYO ALEXANDRA Attending Clinician Unavailable RUTHIE VEGA Attending Clinician Unavailable Gerson JASON, Tiffany Attending Clinician Unavailable Pema JASON, Katya Attending Clinician Unavailable IYMI CRUZ Attending Clinician Unavailable Ander Prasad DO Attending Clinician Ruthie May Attending Clinician Beth Goss MD Attending Clinician [phone] Pob[facility], Acute Care [facility] Attending Clinician Unavailable ALLYSSA MINAYA Attending Clinician Unavailable Payers Payer Name Policy Type Policy Number Effective Date Expiration Date S ishaan [employer] [place] [facility] [id number] 2019 [facility] 00:00:00 MAYE GARCIA [id number] 2020 HEALTH PLAN 00:00:00 HEALTHSMIRWIN 90 [id number] 2021 DEGREE BENEFIT 00:00:00 Problems Condition Condition Condition Status Onset Resolution Last Treating Co mments Source Name Details Category Date Date Treatment Clinician Date [id number] Allergic Problem Active Commo n sinusitis [facility] - [facility] [id number] Chronic Problem Active Common gastritis Spirit without - [facility], [facility] type [id number] Depression Problem Active Co mmon with Spirit anxiety - [facility] [id number] Body mass Problem Active Com mon index Spirit (BMI) - [facility] 40.0-44.9, [facility] [id number] Morbid Problem Active Commo n 9104 (severe) Spirit obesity - [facility] due to [facility] [id number] Vitamin D Problem Active Comm on deficiency Spirit disease - [facility] Allergies, Adverse Reactions, Alerts Allergy Allergy Status Severity Reaction(s) Onset Inactive Treating Comm ents Source Name Type Date Date Clinician Amoxicil Propensi Active anat - ty to 01-10 Oral adverse 00:00: reaction 00 to drug HYDROCOD DRUG Active Hallucinates 0 Un jaimie ONE INGREDI 07-27 ity of 00:00: [place] [facility] Hydrocod Allergy Active Hallucinatio U T one to ns -09 Health substanc 00:00: e 00 Amoxicil Allergy Active Rash 2019-0 [place] anat to 3-12 Health substanc 00:00: e 00 Hydrocod Drug Active Rash 2019-0 UT one-Acet Allergy 2-10 Health aminophe 00:00: n 00 Hydrocod Propensi Active one ty to 27 adverse 00:00: reaction 00 to drug Penicill Propensi Active ins ty to 9- adverse 00:00: reaction 00 to drug Morphine Allergy Active Shortness of U T to breath -16 Health substanc 00:00: e 00 MORPHINE DRUG Active High Anaphylaxis Uni vers INGREDI 16 ity of 00:00: [place] 00 [facility] morphine morphine Active Unknown Commo n [facility] acetamin acetamin Active Unknown Commo n ophen / ophen / Spirit hydrocod hydrocod - [facility] one [facility] amoxicil amoxicil Active yeast Common anat anat [facility] Social History Social Habit Start Date Stop Date Quantity Comments Source History of Tobacco Common Spirit - Use [facility] Sex Assigned At Common Sp vickie - [facility] Exposure to Not sure [facility] SARS-CoV-2 (event) Tobacco use and 2020-10-29 2020-10-29 Never used [facility] exposure 00:00:00 00:00:00 Alcohol intake 2020-10-29 2020-10-29 .29 /d [place] [facility] 00:00:00 00:00:00 Smoking Status Start Date Stop Date Source Light tobacco smoker 2020-10-29 00:00:00 [place] [facility] Never Smoker Common [facility] Medications Ordered Filled Start Stop Current Ordering Indication Dosage Frequency Signature Comments Components Source Medication Medication Date Date Medication? Clinician (SIG) Name Name Dose 2021-0 No Unknown 01-10 00:00: 00 Dose 2021-0 No Unknown 01-10 00:00: 00 TAKE 1 2021-0 No TABLET BY 01-10 MOUTH EVERY 00:00: DAY 00 Dose 2021-0 No Unknown 5-09 00:00: 00 Bromfed DM 2021-0 No 10mg/5 2 mg-30 5-07 mL mg-10 mg/5 00:00: mL oral 00 syrup Dose 2021-0 No Unknown 4-13 00:00: 00 Dose 2022-0 No Unknown 4-13 00:00: 00 Dose 2022-0 No Unknown 4-13 00:00: 00 Dose 2022-0 No Unknown 4-13 00:00: 00 Dose 2022-0 No Unknown 4-13 00:00: 00 Dose 2022-0 No Unknown 4-13 00:00: 00 Dose 2022-0 No Unknown 4-13 00:00: 00 Dose 2022-0 No Unknown 4-13 00:00: 00 Dose 2022-0 No Unknown 4-13 00:00: 00 Dose 2022-0 No Unknown 4-13 00:00: 00 Dose 2022-0 No Unknown 4-13 00:00: 00 Dose 2022-0 No Unknown 4-13 00:00: 00 Dose 2022-0 No Unknown 4-13 00:00: 00 Dose 2022-0 No Unknown 4-13 00:00: 00 Dose 2022-0 No Unknown 4-13 00:00: 00 Dose 2022-0 No Unknown 4-13 00:00: 00 Dose 2022-0 No Unknown 4-13 00:00: 00 Dose 2022-0 No Unknown 4-13 00:00: 00 Dose 2-0 No Unknown 4-13 00:00: 00 Dose 2021-0 No Unknown 4-13 00:00: 00 Dose 2021-0 No Unknown 4-13 00:00: 00 Dose 2020-1 No Unknown 1-04 00:00: 00 Dose 2020-1 No Unknown 1-02 00:00: 00 metroNIDAZO 2020-0 2020- No [id number] 500mg Q.5D Take 1 UT LE (Flagyl) 12-20-10 tablet Healt h 500 MG 00:00: 04:59 (500 mg tablet 00 :00 total) by mouth 2 (two) times a day for 7 days. metroNIDAZO 2020-0 2020- No [id number] 500mg Q.5D Take 1 UT LE (Flagyl) 12-20 09-10 tablet Healt h 500 MG 00:00: 04:59 (500 mg tablet 00 :00 total) by mouth 2 (two) times a day for 7 days. fluconazole 2020- No [id number] 150mg Take 1 UT (Diflucan) 12-17 tablet Health 150 MG 00:00: 04:59 (150 mg tablet 00 :00 total) by mouth 1 (one) time for 1 dose. Repeat in 7 days if symptoms persist. fluconazole 2020- No [id number] 150mg Take 1 UT (Diflucan) 12-17 tablet Health 150 MG 00:00: 04:59 (150 mg tablet 00 :00 total) by mouth 1 (one) time for 1 dose. Repeat in 7 days if symptoms persist. Vitamin B12 Vitamin B12 No 1000ug Common (Cyanocobal (Cyanocobal 2-02 S pirit [place]) strickland) 00:00: - [facility] [address] [facility] Vitamin B12 Vitamin B12 No 1000ug Common (Cyanocobal (Cyanocobal 1-20 S pirit [place]) strickland) 00:00: - [facility] [address] [facility] Vitamin B12 Vitamin B12 No 1000ug Common (Cyanocobal (Cyanocobal 1-11 S pirit [place]) strickland) 00:00: - [facility] [address] [facility] Vitamin B12 Vitamin B12 2019-04 No 1000ug Common (Cyanocobal (Cyanocobal 2-23 S pirit [place]) strickland) 00:00: - [facility] [address] [facility] Vitamin B12 Vitamin B12 2020-1 No 1000ug Common (Cyanocobal (Cyanocobal 2-10 S pirit [place]) strickland) 00:00: - [facility] [address] [facility] Kenalog Kenalog 2020-0 No 40mg Common (Triamcinol (Triamcinol 3-12 S pirit one) one) 00:00: - [facility] [address] [facility] Zithromax Zithromax 2020-0 2020- No Arnaud 2 tablets Common Z-Rd Z-Rd 3-12 17 James today, Spirit 00:00: 00:00 then 1 - [facility] 00 :[address] a [facility] Vitamin D3 Vitamin D3 2020-0 No 1{table Vitamin D3 50,000 50,000 2-12 t} 50,000 00:00: 00 Vitamin D3 Vitamin D3 2020-0 No 1{table Vitamin D3 50,000 50,000 2-12 t} 50,000 00:00: 00 Vitamin D3 Vitamin D3 2020-0 2020- No Arnaud 1 tablet Common 2-12 05-06 James Spirit 00:00: 00:00 - [facility] 00 :[address] [facility] Dose 2020-0 No Unknown 1-27 00:00: 00 Omeprazole Omeprazole No QD Omeprazole 40 MG 40 MG 40 MG Omeprazole Omeprazole No QD Omeprazole 40 MG 40 MG 40 MG Vital Signs Vital Name Observation Time Observation Value Comments Source Systolic blood pressure 2020-12-17 18:11:00 106 mm[Hg] [facility] Diastolic blood pressure 2020-12-17 18:11:00 69 mm[Hg] [facility] Heart rate 2020-12-17 18:11:00 76 [facility] 2020-12-17 18:11:00 36.44 [facility]th [facility] weight 2020-12-17 18:11:00 103.42 [facility] BMI 2020-12-17 18:11:00 41.70 kg/m2 [facility] Systolic blood pressure 2020-10-29 16:19:00 114 mm[Hg] [facility] Diastolic blood pressure 2020-10-29 16:19:00 70 mm[Hg] [facility] Heart rate 2020-10-29 16:19:00 85 /min [facility] Body temperature 2020-10-29 16:19:00 36.94 [facility]th [facility] height 2020-10-29 16:19:00 157.5 cm [facility] Body weight 2020-10-29 16:19:00 100.245 [facility] BMI 2020-10-29 16:19:00 40.42 kg/m2 [facility] BP Systolic 2021-07-31 09:11:00 118 mm[Hg] BP Diastolic 2021-07-31 09:11:00 57 mm[Hg] Weight Measured 2021-07-31 09:11:00 231.00 pounds Height Measured 2021-07-31 09:11:00 63.00 inches Body Temperature 2021-07-31 09:11:00 97.30 degrees Heart Rate 2021-07-31 09:11:00 78.00 /min Respiratory Rate 2021-07-31 09:11:00 BP Systolic 2021-02-19 14:43:00 139 mm[Hg] BP Diastolic 2021-02-19 14:43:00 93 mm[Hg] Weight Measured 2021-02-19 14:43:00 228.00 pounds Height Measured 2021-02-19 14:43:00 63.00 inches Body Temperature 2021-02-19 14:43:00 98.50 degrees Heart Rate 2021-02-19 14:43:00 93.00 /min Respiratory Rate 2021-02-19 14:43:00 BP Systolic 2021-02-18 09:49:00 128 mm[Hg] BP Diastolic 2021-02-18 09:49:00 82 mm[Hg] Weight Measured 2021-02-18 09:49:00 228.00 pounds Height Measured 2021-02-18 09:49:00 63.00 inches Body Temperature 2021-02-18 09:49:00 98.90 degrees Heart Rate 2021-02-18 09:49:00 Respiratory Rate 2021-02-18 09:49:00 BP Systolic 2019-05-19 13:58:00 123 mm[Hg] BP Diastolic 2019-05-19 13:58:00 71 mm[Hg] Weight Measured 2019-05-19 13:58:00 221.00 pounds Height Measured 2019-05-19 13:58:00 63.00 inches Body Temperature 2019-05-19 13:58:00 98.50 degrees Heart Rate 2019-05-19 13:58:00 89.00 /min Respiratory Rate 2019-05-19 13:58:00 18.00 /min BP Systolic 2019-05-16 08:53:00 118 mm[Hg] BP Diastolic 2019-05-16 08:53:00 70 mm[Hg] Weight Measured 2019-05-16 08:53:00 219.40 pounds Height Measured 2019-05-16 08:53:00 63.00 inches Body Temperature 2019-05-16 08:53:00 98.30 degrees Heart Rate 2019-05-16 08:53:00 75.00 /min Respiratory Rate 2019-05-16 08:53:00 16.00 /min BP Systolic 2016-01-01 09:34:00 122 mm[Hg] BP Diastolic 2016-01-01 09:34:00 84 mm[Hg] Weight Measured 2016-01-01 09:34:00 227.40 pounds Height Measured 2016-01-01 09:34:00 63.00 inches Body Temperature 2016-01-01 09:34:00 98.00 degrees Heart Rate 2016-01-01 09:34:00 77.00 /min Respiratory Rate 2016-01-01 09:34:00 16.00 /min Procedures This patient has no known procedures. Plan of Care Planned Activity Planned Date Details Comments Source Goal Plan of Care Note [code = 78277-0] Goal Plan of Care Note [code = 02548-9] Goal Plan of Care Note [code = 75477-6] Goal Plan of Care Note [code = 66788-6] Goal Plan of Care Note [code = 54067-8] Goal Plan of Care Note [code = 20306-7] Goal Plan of Care Note [code = 36613-9] Goal Plan of Care Note [code = 12357-3] Goal Plan of Care Note [code = 59312-2] Goal Plan of Care Note [code = 53621-1] Goal Plan of Care Note [code = 21218-7] Goal Plan of Care Note [code = 37089-6] Goal Plan of Care Note [code = 45277-4] Goal Plan of Care Note [code = 43608-1] Goal Plan of Care Note [code = 42780-9] Goal Plan of Care Note [code = 46165-9] Goal Plan of Care Note [code = 53338-5] Goal Plan of Care Note [code = 73403-4] Goal Plan of Care Note [code = 91901-4] Goal Plan of Care Note [code = 01915-0] Goal Plan of Care Note [code = 80205-2] Goal Plan of Care Note [code = 67670-2] Encounters Start End Encounter Admission Attending Care Care Encounter Source Date/Time Date/Time Type Type Clinicians Facility Department ID 2021-05-15 Outpatient James, STLMLC STLMLC [id number] Common 12:27:12 [facility] [address] [facility] 2021-05-15 Outpatient James, STLMLC STLC [id number] Common 12:25:33 [facility] [address] [facility] 2021-05-15 Outpatient James, STLMLC STLC [id number] Common 12:24:48 [facility] [address] [facility] 2021-05-15 Outpatient James, STLMLC STLC [id number] Common 12:22:12 [facility] [address] [facility] 2021-05-15 Outpatient James, STLMLC STLC [id number] Common 11:13:26 Arnaud [address] [facility] 2021-05-15 Outpatient James, STLMLC STLC [id number] Common 11:12:29 Arnaud [address] [facility] 2021-05-15 Outpatient James, STLMLC STLC [id number] Common 11:07:25 [facility] [address] [facility] 2021-02-15 Emergency [facility] [id number] Univers 02:46:[facility] 2020-09-20 Outpatient SHAQ [facility] [id number] [place] 14:05:53 [facility] 2022-01-10 2022-01-10 Outpatient [id number] 00:00:00 00:00:00 Visit [id number] 2021-08-22 2021-08-22 Outpatient Ariel ALEXANDRA, [facility] [id number] Univers 10:00:00 10:00:00 [facility] 2021-07-15 2021-07-15 (TEL) STLMLC STLMLC [id number] Co mmon 00:00:00 00:00:00 [facility] 2021-05-28 2021-05-28 (TEL) STLMLC STLMLC [id number] Co mmon 00:00:00 00:00:00 [facility] 2021-04-11 2021-04-11 Outpatient Ariel VEGA, [facility] [id number] Univers 10:40:00 10:40:00 [facility] 2020-12-20 2020-12-20 Telephone Tiffany Nieto [facility] [id number] .[id number] [place] 00:00:00 00:00:00 Tiffany Nieto [id number] Health [facility] [id number] [phone] AND 2 WOMENS 2020-12-20 2020-12-20 Orders Katya Mcadams [facility] [id number] [place] 00:00:00 00:00:00 Only Katya Mcadams [place] [id number] Health [facility] [id number] [phone] AND 2 WOMENS 2020-12-17 2020-12-17 Office DENNIS New [id number] [place] 13:00:30 13:10:30 Visit Nola PILLAI [id number] [facility] [id number] MULTI [id number] SPECIALTY 6 2020-10-29 2020-10-29 Office DENNIS New [id number] [place] 11:03:01 11:47:44 Visit Nola PILLAI [id number] [facility] 9.2.7.2.686 MULTI [id number] SPECIALTY 6 2020-08-21 2020-08-21 Outpatient Ariel CRUZ [facility] [id number] Univers 13:50:00 13:50:00 [facility] 2020-07-24 2020-07-24 Outpatient Ariel CRUZ [facility] [id number] [facility] 13:50:00 13:50:00 [facility] 2020-04-30 2020-04-30 Outpatient STLMLC STLMLC [id number] Common 00:00:00 00:00:00 [facility] 2020-04-11 2020-04-11 Outpatient STLMLC STLMLC [id number] Common 00:00:00 00:00:00 [facility] 2020-03-29 2020-03-29 Outpatient STLMLC STLMLC [id number] Common 00:00:00 00:00:00 [facility] 2020-02-29 2020-02-29 Outpatient STLMLC STLMLC [id number] Common 00:00:00 00:00:00 [facility] 2020-02-28 2020-02-28 Outpatient STLMLC STLMLC [id number] Common 00:00:00 00:00:00 [facility] 2019-10-31 2019-10-31 [facility] [id number] Common 12:06:00 12:06:[address] [facility] 2019-10-26 2019-10-26 Out[facility] [id number] Common 14:00:00 14:00:[address] [facility] it Road [facility] 2019-10-25 2019-10-25 Out[facility] [id number] Common 13:09:00 13:09:[address] [facility] 2019-10-12 2019-10-13 Emergency [facility] [id number] 23:48:45 01:31:00 Ander Hurst [id number] [place] [id number] [place] [id number] [id number] 2019-07-30 2019-07-30 [facility]phone [facility] 1.2.840.114 [id number] 00:00:00 00:00:00 [facility] [id number] [place] [id number] Professio [id number] nal [address] 2019-07-29 2019-07-29 Telephone Ana Paula JENSEN 1.2.840.114 [id number] 00:00:00 00:00:00 , Beth ESCOBEDO [id number] [facility] [id number] [id number] [id number] 2019-07-28 2019-07-28 Urgent Pob1, Acute [facility] 1.2.840.114 [id number] 08:59:05 09:39:16 [facility] [id number] [place] [id number] Professio [id number] nal 0[address] 2019-07-28 2019-07-28 Outpatient Ariel MINAYA, [facility] [id number] Univers 09:20:00 09:20:00 ALLYSSA gerber [facility] 2019-07-01 2019-07-01 [facility] [id number] Common 13:59:00 13:59:[address] [facility] 2019-06-30 2019-06-30 [facility] [id number] Common 10:00:00 10:00:[address] [facility] 2019-06-01 2019-06-01 Out[facility] [id number] Common 08:22:00 08:22:[address] [facility] 2019-05-30 2019-05-30 Out[facility] [id number] Common 09:00:00 09:00:[address] [facility] Results Test Description Test Time Test Comments Results Result Comments Source CULTURE, URINE 2021-02-21 00:00:00 Test Item Value Reference Range Interpretation Comme nts CULTURE, URINE (test code = 16538) SPECIMEN NUMBER: [id number] CULTURE, [id number] 00:00:00 Test Item Value Reference Range Interpretation Comments CULTURE, URINE (test SPECIMEN NUMBER: code = 81995) [id number] URINE CULTURE, NO [id number] 00:00:00 Test Item Value Reference Range Interpretation Comments URINE CULTURE, NO SPECIMEN NUMBER: SENS (test code = 458306148 90665) URINE CULTURE, NO [id number] 00:00:00 Test Item Value Reference Range Interpretation Comments URINE CULTURE, NO SPECIMEN NUMBER: SENS (test code = 915200295 30015) SARS-CoV-2 (COVID-19) by RT-PCR (HIGH RISK)2019-11-19 00:00:00 Test Item Value Reference Range Interpretation Comments SARS-CoV-2 INTERPRETATION (test POSITIVE code = 82457) SOURCE (test code = 60223) NOT SPECIFIED SARS-CoV-2 (COVID-19) by RT-PCR (HIGH RISK)2019-11-19 00:00:00 Test Item Value Reference Range Interpretation Comments SARS-CoV-2 INTERPRETATION (test POSITIVE code = 97746) SOURCE (test code = 09122) NOT SPECIFIED HIV AB/AG COMBO RFLX [id number] 00:00:00 Test Item Value Reference Range Interpretation Comments HIV 1/2 AB/AG RFLX CONF (test NON-REACTIVE code = 3514) HIV AB/AG COMBO RFLX [id number] 00:00:00 Test Item Value Reference Range Interpretation Comments HIV 1/2 AB/AG RFLX CONF (test NON-REACTIVE code = 3514) ACUTE HEPATITIS [id number] 00:00:00 Test Item Value Reference Range Interpretation Comments HEPATITIS A IgM (test code = NON-REACTIVE 61326) HEPATITIS B CORE IgM (test code NON-REACTIVE = 7844) HEPATITIS B SURF AG (test code = NON-REACTIVE 6959) HEPATITIS C ANTIBODY (test code NON-REACTIVE = 8183) INTERPRETATION HEPATITIS A: (NOTE) (test code = 2552) INTERPRETATION HEPATITIS B: (NOTE) (test code = 79322) INTERPRETATION HEPATITIS C: (NOTE) (test code = 02675) ACUTE HEPATITIS [id number] 00:00:00 Test Item Value Reference Range Interpretation Comments HEPATITIS A IgM (test code = NON-REACTIVE 10115) HEPATITIS B CORE IgM (test code NON-REACTIVE = 4644) HEPATITIS B SURF AG (test code = NON-REACTIVE 2739) HEPATITIS C ANTIBODY (test code NON-REACTIVE = 4675) INTERPRETATION HEPATITIS A: (NOTE) (test code = 2552) INTERPRETATION HEPATITIS B: (NOTE) (test code = 56777) INTERPRETATION HEPATITIS C: (NOTE) (test code = 34197) CHLAMYDIA, AMPLIFIED, [id number] 00:00:00 Test Item Value Reference Range Interpretation Comments CHLAMYDIA, TMA (test code = 33147) NEGATIVE CHLAMYDIA, AMPLIFIED, [id number] 00:00:00 Test Item Value Reference Range Interpretation Comments CHLAMYDIA, TMA (test code = 33943) NEGATIVE GC, AMPLIFIED, [id number] 00:00:00 Test Item Value Reference Range Interpretation Comments GONORRHEA, TMA (test code = 10752) NEGATIVE GC, AMPLIFIED, [id number] 00:00:00 Test Item Value Reference Range Interpretation Comments GONORRHEA, TMA (test code = 75331) NEGATIVE H. PYLORI IgG, [id number] 00:00:00 Test Item Value Reference Range Interpretation Comments H. PYLORI IgG, QUAL (test code = NEGATIVE 4565) [id number] 00:00:00 Test Item Value Reference Range Interpretation Comments RPR RESULT (test code = NON-REACTIVE 3501) RPR TITER (test code = 3500) NOT INDIC. TITER [id number] 00:00:00 Test Item Value Reference Range Interpretation Comments RPR RESULT (test code = NON-REACTIVE 3501) RPR TITER (test code = 3500) NOT INDIC. TITER [id number] 00:00:00 Test Item Value Reference Range Interpretation Comments RPR RESULT (test code = NON-REACTIVE 3501) RPR TITER (test code = 3500) NOT INDIC. TITER
[2022-03-16] MEDS ORDERED: NA CHLORIDE 0.9% 1,000 ML ONE (16:04)
[2022-03-16] MEDS ORDERED: MORPHINE 4 MG/ML SYR ONE (16:04)
[2022-03-16] MEDS ORDERED: ONDANSETRON 4 MG/2 ML VIAL ONE (16:04)
[2022-03-16] MEDS ORDERED: KETOROLAC 30 MG/ML INJ ONE (16:34)
[2022-03-16 16:46] LABS: Hematocrit 39.8 % (36.0-45.0); Lymphocytes % 26.4 % (15.3-44.8); MCV 94.5 fL (80-100); MPV 8.9 fL (7.6-11.3); RBC Red Blood Cell Count 4.22 M/uL (3.86-4.86)
[2022-03-16 17:03] LABS: Albumin 3.2 g/dL (3.4-5.0); Bilirubin Total 0.4 mg/dL (0.2-1.0); Potassium 3.4 mmol/L (3.5-5.1); Protein, Total 7.4 g/dL (6.4-8.2)
[2022-03-16 18:02] LABS: Urine Blood Negative (Negative); Urine Glucose Negative (Negative); Urine Protein Negative (Negative); Urine pH 7.5 (5.0-7.0)
[2022-03-16 18:18] LABS: Urine Bacteria 20-50 /HPF (<20); Urine RBC <5 /HPF (None Seen); Urine WBC Clump Occasional /HPF (None Seen)
--- NOTE | 2022-03-16 18:18 | RAD REPORT ---
EXAM DESCRIPTION: CT - Abdomen Pelvis W Contrast - 03/16/2022 6:08 pm CLINICAL HISTORY: Abdominal pain COMPARISON: July 2021 TECHNIQUE: Computed axial tomography of the abdomen pelvis was obtained. 100 cc Isovue-300 was admin istered intravenously. Oral contrast was not requested which limits evaluation of bowel and appendix All CT scans are performed using dose optimization technique as appropriate and may include automated exposure control or mA/KV adjustment according to patient size. FINDINGS: Small hepatic and right renal cysts. The spleen, pancreas, adrenals and left kidney are unremarkable There is no evidence of diverticulitis. The appendix is upper limits normal caliber. No stranding within the adjacent fat. No adnexal mass. Small umbilical hernia IMPRESSION: No acute abnormality is displayed.
--- NOTE | 2022-03-16 18:23 | RAD REPORT ---
EXAM DESCRIPTION: US - Abdomen Exam Limited - 03/16/2022 4:17 pm CLINICAL HISTORY: Abdominal pain. COMPARISON: 2019 FINDINGS: The gallbladder is contracted. It contains a 3 millimeter polyp. A gallstone is not seen. Borderline gallbladder wall thickening Previously described 8 millimeter echogenic focus on the 2019 exam is not visualized on the current u ltrasound. However evaluation is limited as the gallbladder is contracted. The biliary tree is normal caliber. IMPRESSION: Contracted gallbladder. This can be a normal finding if the patient had recently eaten. Chronic cholecystitis can also result in this appearance. 3 millimeter gallbladder polyp likely benign Overall evaluation of the gallbladder is somewhat limited due to it being contracted.
--- NOTE | 2022-03-16 18:46 | EDPHYS ---
Physician Documentation [facility] Name: Becka Lorenzo Age: 46 yrs Sex: Female : 1975 Arrival Date: 03/16/2022 Time: 15:09 Bed 12 Private MD: [facility] ED Physician Raymond Desai HPI: 03/16 18:45 This 46 yrs old Female presents to ER via Ambulatory with complaints of kb Abdominal Pain, Abdominal Distention, Nausea/Vomiting, Fever. 18:45 The patient presents with abdominal pain in the right upper quadrant, right lower kb quadrant. The patient has not experienced similar symptoms in the past. 18:45 Onset: The symptoms/episode began/occurred 2 day(s) ago. The symptoms do not radiate. kb Associated signs and symptoms: Pertinent positives: nausea and vomiting. The symptoms are described as constant. Modifying factors: The symptoms are alleviated by nothing, the symptoms are aggravated by nothing. Severity of pain: At its worst the pain was moderate in the emergency department the pain is unchanged. The patient has not recently seen a physician. 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 - Social history:: Smoking status: Patient denies any tobacco usage or history of. ROS: 18:44 Constitutional: Negative for fever, chills, and weight loss. kb 18:44 Abdomen/GI: Positive for abdominal pain, nausea and vomiting. 18:44 All other systems are negative. Exam: 18:44 Constitutional: This is a well developed, well nourished patient who is awake, alert, kb and in no acute distress. Head/Face: Normocephalic, atraumatic. ENT: Moist Mucous membranes Cardiovascular: Regular rate and rhythm with a normal S1 and S2. No gallops, murmurs, or rubs. No pulse deficits. Respiratory: Respirations even and unlabored. No increased work of breathing. Talking in full sentences Skin: Warm, dry with normal turgor. Normal color. MS/ Extremity: Pulses equal, no cyanosis. Neurovascular intact. Full, normal range of motion. Neuro: Awake and alert, GCS 15, oriented to person, place, time, and situation. Moves all extremities. Normal gait. Psych: Awake, alert, with orientation to person, place and time. Behavior, mood, and affect are within normal limits. 18:44 Abdomen/GI: Inspection: abdomen appears normal, Bowel sounds: normal, Palpation: soft, in all quadrants, mild abdominal tenderness, in the right upper quadrant and right lower quadrant. Vital Signs: 15:22 BP 116 / 88; Pulse 96; Resp 20; Temp 98.8; Pulse Ox 96% ; Weight 99.79 kg; Height 5 ft. kb3 0 in. (152.40 cm); Pain 8/10; 17:44 BP 124 / 84; Pulse 88; Resp 16; Pulse Ox 99% on R/A; hb 19:00 BP 128 / 88; Pulse 82; Resp 15; Pulse Ox 99% on R/A; hb 15:22 Body Mass Index 42.97 (99.79 kg, 152.40 cm) kb3 MDM: 15:26 Patient medically screened. kb 18:44 Data reviewed: vital signs, nurses notes. Data interpreted: Pulse oximetry: on room air kb is 99 %. Interpretation: normal. Counseling: I had a detailed discussion with the patient and/or guardian regarding: the historical points, exam findings, and any diagnostic results supporting the discharge/admit diagnosis, lab results, radiology results, the need for outpatient follow up, a family practitioner, to return to the emergency department if symptoms worsen or persist or if there are any questions or concerns that arise at home. 03/16 15: Order name: CBC with Diff; Complete Time: 16:49 kb 03/16 15: Order name: CMP; Complete Time: 17:05 kb 03/16 15:26 Order name: Lipase; Complete Time: 17:05 kb 03/16 18:01 Order name: Urine Microscopic Only; Complete Time: 18:22 em1 03/16 18:02 Order name: Urine --Ancillary (enter results); Complete Time: 18:13 em1 03/16 18:02 Order name: Urine Dipstick-Ancillary; Complete Time: 18:05 EDOH 03/16 15:26 Order name: Abdomen Limited US; Complete Time: 18:35 kb 03/16 15:26 Order name: CT Abd/Pelvis - IV Contrast Only; Complete Time: 18:22 kb 03/16 15:26 Order name: IV Saline Lock; Complete Time: 16:30 kb 03/16 18:21 Order name: Urine Culture [facility] 03/16 15:26 Order name: Labs collected and sent; Complete Time: 16:30 kb 03/16 15:26 Order name: Urine Dipstick-Ancillary (obtain specimen); Complete Time: 18:10 kb 03/16 15:26 Order name: Urine Test (obtain specimen); Complete Time: 18:10 kb Administered Medications: 16:30 Drug: NS 0.9% 1000 ml Route: IV; Rate: 1 bolus; Site: left antecubital; hb 17:44 Follow up: Response: No adverse reaction; IV Status: Completed infusion; IV Intake: hb 1000ml 16:31 Drug: Zofran (Ondansetron) 4 mg Route: IVP; Site: left antecubital; hb 17:22 Follow up: Response: No adverse reaction hb 16:32 CANCELLED (Other Intervention Used): morphine 4 mg IVP once over 4 mins kb 16:36 Drug: Ketorolac 15 mg Route: IVP; Site: left antecubital; hb 17:22 Follow up: Response: No adverse reaction hb Disposition: 19:16 Co-signature as Attending Physician, Raymond MAR was immediately available on-site ms3 in the Emergency Department for consultation in the care of the patient. Disposition Summary: 03/16/22 18:45 Discharge Ordered Location: Home kb Condition: Stable kb Diagnosis - UTI/ Urinary tract infection, site not specified kb Followup: kb - With: Emergency Department - When: As needed - Reason: Worsening of condition Followup: kb - With: Private Physician - When: 2 - 3 days - Reason: Recheck today's complaints, Continuance of care, Re-evaluation by your physician Discharge Instructions: - Discharge Summary Sheet kb - Urinary Tract Infection, Adult, [id number] kb Forms: - Medication Reconciliation Form kb - Thank You Letter kb - Antibiotic Education kb - Prescription Opioid Use kb - Work release form sp Prescriptions: - Macrobid 100 mg Oral Capsule - take 1 capsule by ORAL route every 12 hours for 10 days; 20 capsule; Refills: kb 0, Product Selection Permitted Signatures: Dispatcher [employer] Karen Metz, ROJELIO-C ROJELIO-Yenny Singletary, RN RN Raymond Desai, DO ms3 Kelley Campo RN RN kb3 Corrections: (The following items were deleted from the chart) 16:32 15:26 morphine 4 mg IVP once over 4 mins ordered. kb kb 16:32 16:31 morphine 4 mg IVP once over 4 mins ordered. kb
--- NOTE | 2022-03-16 18:46 | ER ---
Nurse's Notes [facility] Name: Becka Lorenzo Age: 46 yrs Sex: Female : 1975 Arrival Date: 03/16/2022 Time: 15:09 Bed 12 Private MD: Arnaud James Diagnosis: UTI/ Urinary tract infection, site not specified Presentation: 03/16 15:22 Chief complaint: Patient states: Bloating and right-sided abdominal pain with nausea kb3 and vomiting since yesterday. Reports constipation x2 days. Coronavirus screen: Vaccine status: Patient reports receiving the 1st dose of the Covid vaccine. Client denies travel out of the [place] in the last 14 days. Ebola Screen: Patient negative for fever greater than or equal to 101.5 degrees Fahrenheit, and additional compatible Ebola Virus Disease symptoms Patient denies exposure to infectious person. Patient denies travel to an Ebola-affected area in the 21 days before illness onset. Initial Sepsis Screen: Does the patient meet any 2 criteria? No. Patient's initial sepsis screen is negative. Does the patient have a suspected source of infection? No. Patient's initial sepsis screen is negative. Risk Assessment: Do you want to hurt yourself or someone else? Patient reports no desire to harm self or others. Onset of symptoms was March 14, 2022. 15:22 Method Of Arrival: Ambulatory kb3 15:22 Acuity: LOW 3 kb3 Triage Assessment: 15:27 General: Appears in no apparent distress. Behavior is calm, cooperative. Pain: kb3 Complains of pain in right upper quadrant and right lower quadrant Pain does not radiate. Pain currently is 8 out of 10 on a pain scale. Quality of pain is described as pressure. GI: Abd is soft Abd is non tender in right upper quadrant and right lower quadrant Reports lower abdominal pain, upper abdominal pain, nausea, vomiting. 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 - Social history:: Smoking status: Patient denies any tobacco usage or history of. Screenin:37 Abuse screen: Denies threats or abuse. Denies injuries from another. Nutritional hb screening: No deficits noted. Tuberculosis screening: No symptoms or risk factors identified. Fall Risk None identified. Assessment: 16:37 General: Appears in no apparent distress. uncomfortable, Behavior is calm, cooperative. hb Pain: Pain currently is 8 out of 10 on a pain scale. Neuro: Level of Consciousness is awake, alert, obeys commands, Oriented to person, place, time, situation. Cardiovascular: Patient's skin is warm and dry. Respiratory: Respiratory effort is even, unlabored, Respiratory pattern is regular, symmetrical. GI: Reports lower abdominal pain, upper abdominal pain, nausea. : No signs and/or symptoms were reported regarding the genitourinary system. EENT: No signs and/or symptoms were reported regarding the EENT system. Derm: Skin is pink, warm \T\ dry. Musculoskeletal: No signs and/or symptoms reported regarding the musculoskeletal system. 17:44 Reassessment: Patient appears in no apparent distress at this time. Patient and/or hb family updated on plan of care and expected duration. Pain level reassessed. Patient is alert, oriented x 3, equal unlabored respirations, skin warm/dry/pink. 19:00 Reassessment: Patient appears in no apparent distress at this time. Patient and/or hb family updated on plan of care and expected duration. Pain level reassessed. Patient is alert, oriented x 3, equal unlabored respirations, skin warm/dry/pink. Vital Signs: 15:22 BP 116 / 88; Pulse 96; Resp 20; Temp 98.8; Pulse Ox 96% ; Weight 99.79 kg; Height 5 ft. kb3 0 in. (152.40 cm); Pain 8/10; 17:44 BP 124 / 84; Pulse 88; Resp 16; Pulse Ox 99% on R/A; hb 19:00 BP 128 / 88; Pulse 82; Resp 15; Pulse Ox 99% on R/A; hb 15:22 Body Mass Index 42.97 (99.79 kg, 152.40 cm) kb3 ED Course: 15:09 Patient arrived in ED. am2 15:10 Arnaud James DO is Private Physician. am2 15:26 [facility] kb 15:26 Raymond Desai DO is Attending Physician. kb 15:27 Triage completed. kb3 15:27 Arm band placed on right wrist. kb3 16:00 Yenny Dudley, RN is Primary Nurse. hb 16:14 Inserted saline lock: 20 gauge in left antecubital area, using aseptic technique. Blood hb collected. 16:19 Abdomen Limited US In Process Unspecified. EDMS 16:37 Patient has correct armband on for positive identification. hb 18:09 CT Abd/Pelvis - IV Contrast Only In Process Unspecified. EDMS 19:00 No provider procedures requiring assistance completed. IV discontinued, intact, hb bleeding controlled, No redness/swelling at site. Administered Medications: 16:30 Drug: NS 0.9% 1000 ml Route: IV; Rate: 1 bolus; Site: left antecubital; hb 17:44 Follow up: Response: No adverse reaction; IV Status: Completed infusion; IV Intake: hb 1000ml 16:31 Drug: Zofran (Ondansetron) 4 mg Route: IVP; Site: left antecubital; hb 17:22 Follow up: Response: No adverse reaction hb 16:32 CANCELLED (Other Intervention Used): morphine 4 mg IVP once over 4 mins kb 16:36 Drug: Ketorolac 15 mg Route: IVP; Site: left antecubital; hb 17:22 Follow up: Response: No adverse reaction hb Medication: 16:37 VIS not applicable for this client. hb Intake: 17:44 IV: 1000ml; Total: 1000ml. hb Outcome: 18:45 Discharge ordered by MD. kb 19:00 Discharged to home ambulatory. hb 19:00 Condition: stable 19:00 Discharge instructions given to patient, Instructed on discharge instructions, follow up and referral plans. medication usage, Demonstrated understanding of instructions, follow-up care, medications, Prescriptions given X 1. 19:28 Patient left the ED. hb Addendum: 03/19/2022 07:27 Addendum: Culture Results: Positive urine culture. No further action required. Bacteria i w sensitive to prescribed antibiotic. Signatures: Dispatcher [employer] EDMS Karen Estes FNP-C FNP-Ckb Sera Carreno, RN RN iw Yenny Dudley, RN RN hb Mily Perez am2 Kelley Campo, RN RN kb3
[2022-03-16 19:49] VITALS: TEMP 98.8
[2022-03-16 19:50] VITALS: O2SAT 99
[2022-03-16 19:51] VITALS: BP 128/88
== END 2022-03-16 19:28 | disposition home or self-care (01) ==
LOC: ER 15:08
DX: N39.0 Urinary tract infection, site not specified (principal); Z88.0 Allergy status to penicillin; Z88.1 Allergy status to other antibiotic agents; Z88.5 Allergy status to narcotic agent
CPT/HCPCS: 96361; 87088; 85025; 87086; 36415; 81025; 83690; 80053; 74177; 76705; 96375; 96374; 99284; Q9967; J7030; J2405; 81003; 81015; 87077; 87186

== ENCOUNTER 2023-02-15 15:04 | Emergency (ER) | payer OTHER ==
--- OUTSIDE RECORDS SUMMARY | 2023-02-15 15:24 | XMS REPORT | Continuity of Care Document ---
:1975 Author Organization [facility] t Address [address] [facility] [address] [place] [address] Care Team Providers Name Role Phone No MD, Pcp Primary Care Physician Unavailable Arnaud James Attending Clinician Unavailable NOLA NEW Attending Clinician Unavailable [email or web address]_S Attending Clinician Unavailable MAYO ALEXANDRA Attending Clinician Unavailable RUTHIE VEGA Attending Clinician Unavailable Gerson JASON, Tiffany Attending Clinician Unavailable Pema JASON, Katya Attending Clinician Unavailable YIMI CRUZ Attending Clinician Unavailable Ander Prasad DO Attending Clinician Ruthie May Attending Clinician Beth Goss MD Attending Clinician [phone] Pob1, Acute Care Clinic Attending Clinician Unavailable ALLYSSA MINAYA Attending Clinician Unavailable [email or web address]_S Admitting Clinician Unavailable Payers Payer Name Policy Type Policy Number Effective Date Expiration Date S isahan BCBS [facility] [id number] 2019 [facility] 00:00:00 [facility] [id number] 2020 HEALTH PLAN 00:00:00 HEALTHSMART 90 [id number] 2021 DEGREE BENEFIT 00:00:00 Problems Condition Condition Condition Status Onset Resolution Last Treating Co mments Source Name Details Category Date Date Treatment Clinician Date [id number] Allergic Problem Active Commo n sinusitis Spirit - [facility] [id number] Chronic Problem Active Common gastritis [facility], [facility] type [id number] Depression Problem Active Co mmon with Spirit anxiety - [facility] [id number] Body mass Problem Active Com mon index Spirit (BMI) - [facility] 40.0-44.9, [facility] [id number] Morbid Problem Active Commo n 9104 (severe) [facility] obesity - [facility] due to [facility] [id number] Vitamin D Problem Active Comm on deficiency Spirit disease - [facility] Allergies, Adverse Reactions, Alerts Allergy Allergy Status Severity Reaction(s) Onset Inactive Treating Comm ents Source Name Type Date Date Clinician Amoxicil Propensi Active anat - ty to 01-10 Oral adverse 00:00: reaction 00 to drug Hydrocod Allergy Active Hallucinatio 0 U T one to ns 07-27 Health substanc 00:00: e 00 HYDROCOD DRUG Active Hallucinates 2019-0 Un jaimie ONE INGREDI 07-27 ity of 00:00: [place] [facility] Amoxicil Allergy Active Rash 2019-0 UT anat to 3-12 Health substanc 00:00: e 00 Hydrocod Drug Active Rash 2019-0 UT one-Acet Allergy 2-10 Health aminophe 00:00: n 00 Hydrocod Propensi Active 0 one ty to 1-27 adverse 00:00: reaction 00 to drug Penicill Propensi Active ins ty to 9-13 adverse 00:00: reaction 00 to drug Morphine Allergy Active Shortness of U T to breath -16 Health substanc 00:00: e 00 MORPHINE DRUG Active High Anaphylaxis Uni vers INGREDI 08-03 ity of 00:00: [place] [facility] morphine morphine Active Unknown Commo n [facility] acetamin acetamin Active Unknown Commo n ophen / ophen / Spirit hydrocod hydrocod - [facility]I one one [facility] amoxicil amoxicil Active yeast Common anat anat Spirit [facility] Social History Social Habit Start Date Stop Date Quantity Comments Source History of Tobacco Common Spirit - Use [facility] Sex Assigned At Common Sp vickie - [facility] Exposure to Not sure [facility] SARS-CoV-2 (event) Tobacco use and 2020-10-29 2020-10-29 Never used [place] [facility] exposure 00:00:00 00:00:00 Alcohol intake 2020-10-29 2020-10-29 .29 /d [place] [facility] 00:00:00 00:00:00 Smoking Status Start Date Stop Date Source Light tobacco smoker 2020-10-29 00:00:00 [place] [facility] Never Smoker [facility] Medications Ordered Filled Start Stop Current Ordering Indication Dosage Frequency Signature Comments Components Source Medication Medication Date Date Medication? Clinician (SIG) Name Name Dose No Unknown 01-10 00:00: 00 Dose 2021-0 [...] 2021-0 No Unknown 4-13 00:00: 00 Dose 2-0 No Unknown 4-13 00:00: 00 Dose 2021-0 No Unknown 4-13 00:00: 00 Dose 2-0 No Unknown 4-13 00:00: 00 Dose 2-0 [...] 2022-0 No Unknown 4-13 00:00: 00 Dose 2020-1 No Unknown 1-04 00:00: 00 Dose 2020-1 No Unknown 1-02 00:00: 00 metroNIDAZO 2020-0 2020- No [id number] 500mg Q.5D Take 1 UT LE (Flagyl) 12-20 09-10 tablet Healt h 500 MG 00:00: 04:59 (500 mg tablet 00 :00 total) by mouth 2 (two) times a day for 7 days. metroNIDAZO 2020-2020- No [id number] 500mg Q.5D Take 1 UT LE (Flagyl) 12-20 09-10 tablet Healt h 500 MG 00:00: 04:59 (500 mg tablet 00 :00 total) by mouth 2 (two) times a day for 7 days. fluconazole 2020- No [id number] 150mg Take 1 UT (Diflucan) 12-17 tablet Health 150 MG 00:00: 04:59 (150 mg tablet 00 :00 total) by mouth 1 (one) time for 1 dose. Repeat in 7 days if symptoms persist. fluconazole 2020- No [id number] 150mg Take 1 UT (Diflucan) 12-17 tablet Health 150 MG 00:00: 04:59 (150 mg tablet 00 :00 total) by mouth 1 (one) time for 1 dose. Repeat in 7 days if symptoms persist. Vitamin B12 Vitamin B12 No 1000ug Common (Cyanocobal (Cyanocobal 2-02 S pirit strickland) strickland) 00:00: - [facility] 00 [facility] Vitamin B12 Vitamin B12 No 1000ug Common (Cyanocobal (Cyanocobal 1-20 S pirit strickland) strickland) 00:00: - [facility] Vitamin B12 Vitamin B12 2021-0 No 1000ug Common (Cyanocobal (Cyanocobal 1-11 S pirit strickland) strickland) 00:00: - [facility] 00 [facility] Vitamin B12 Vitamin B12 2020-1 No 1000ug Common (Cyanocobal (Cyanocobal 2-23 S pirit strickland) strickland) 00:00: - [facility]I 00 [facility] Vitamin B12 Vitamin B12 2020-1 No 1000ug Common (Cyanocobal (Cyanocobal 2-10 S pirit strickland) strickland) 00:00: - [facility]I 00 [facility] Kenalog Kenalog 2020-0 No 40mg Common (Triamcinol (Triamcinol 3-12 S pirit one) one) 00:00: - [facility]I 00 [facility] Zithromax Zithromax 2020-0 2020- No Arnaud 2 tablets Common Z-Rd Z-Rd 3-12 17 James today, Spirit 00:00: 00:00 then 1 - CHI 00 :[address] once a day [facility] Vitamin D3 Vitamin D3 2020-0 No 1{table Vitamin D3 50,000 50,000 2-12 t} 50,000 00:00: 00 Vitamin D3 Vitamin D3 2020-0 No 1{table Vitamin D3 50,000 50,000 2-12 t} 50,000 00:00: 00 Vitamin D3 Vitamin D3 2020-0 2020- No Arnaud 1 tablet Common 2-12 -06 James Spirit 00:00: 00:00 - [facility] 00 :00 [facility] Dose 2020-0 No Unknown 1-27 00:00: 00 [...] Heart rate 2020-12-17 18:11:00 76 /min [facility] Body temperature 2020-12-17 18:11:00 36.44 [facility]th [facility] Body weight 2020-12-17 18:11:00 103.42 kg [facility] BMI 2020-12-17 18:11:00 41.70 kg/m2 UT [...] h BMI 2020-10-29 16:19:00 40.42 kg/m2 [facility] BP Systolic 2021-07-31 09:11:00 118 mm[Hg] [...] Goal Plan of Care Note [code = 50675-1] Goal Plan of Care Note [code = 15247-8] Goal Plan of Care Note [code = 40231-9] Goal Plan of Care Note [code = 83891-7] Goal Plan of Care Note [code = 66473-7] Goal Plan of Care Note [code = 36133-8] Goal Plan of Care Note [code = 50980-4] Goal Plan of Care Note [code = 47887-7] Goal Plan of Care Note [code = 78975-7] Goal Plan of Care Note [code = 38545-8] Goal Plan of Care Note [code = 76701-9] Goal Plan of Care Note [code = 49578-0] Goal Plan of Care Note [code = 51096-7] Goal Plan of Care Note [code = 30737-6] Goal Plan of Care Note [code = 06568-7] Goal Plan of Care Note [code = 16005-1] Goal Plan of Care Note [code = 52223-4] Goal Plan of Care Note [code = 15397-5] Goal Plan of Care Note [code = 75814-5] Goal Plan of Care Note [code = 89201-7] Goal Plan of Care Note [code = 65641-5] Goal Plan of Care Note [code = 48314-3] Encounters Start End Encounter Admission Attending Care Care Encounter Source Date/Time Date/Time Type Type Clinicians Facility Department ID 2021-05-15 Outpatient James, [facility] [id number] Common 12:27:12 Formerly [facility] [address] [facility] 2021-05-15 Outpatient James, STLMLC [facility] [id number] Common 12:25:33 [facility] [address] [facility] 2021-05-15 Outpatient James, STLMLC STLC [id number] Common 12:24:48 Arnaud [address]362 [facility] 2021-05-15 Outpatient James, STLMLC [facility] [id number] Common 12:22:12 [facility] [address] [facility] 2021-05-15 Outpatient James, STLMLC [facility] [id number] Common 11:13:26 Arnaud [address] [facility] 2021-05-15 Outpatient James, STLMLC [facility] [id number] Common 11:12:29 Arnaud [address] [facility] 2021-05-15 Outpatient James, STLMLC [facility] [id number] Common 11:07:25 Arnaud [address] [facility] 2021-02-15 Emergency [facility] [id number] Univers 02:46:29 [facility] 2020-09-20 Outpatient SHAQ [facility] [id number] [place] 14:05:53 [place] [employer] 2023-02-13 2023-02-13 Outpatient GC_GCBZW_Ka PRIV PRIV [id number] [facility] 00:00:00 00:00:00 demetriachristianoKellyShady [id number] [facility] 2022-01-10 2022-01-10 Outpatient [id number] 00:00:00 00:00:00 Visit [id number] 2021-08-22 2021-08-22 Outpatient Ariel ALEXANDRA, [facility] [id number] Univers 10:00:00 10:00:00 MAYO [facility] 2021-07-15 2021-07-15 (TEL) STLMLC STLMLC [id number] Co mmon 00:00:00 00:00:00 [facility] 2021-05-28 2021-05-28 (TEL) STLMLC STLMLC [id number] Co mmon 00:00:00 00:00:00 [facility] 2021-04-11 2021-04-11 Outpatient Ariel VEGA, [facility] [id number] Univers 10:40:00 10:40:00 RUTHIE [facility] 2020-12-20 2020-12-20 Telephone Tiffany Nieto [facility] 1.2.840 .[id number] [place] 00:00:00 00:00:00 Tiffany Nieto [place] [id number] Health [place] 9.2.7.2.686 [address] 9 [id number] AND 2 WOMENS 2020-12-20 2020-12-20 Orders Katya Mcadams [facility] [id number] [place] 00:00:00 00:00:00 Only Katya Mcadams [place] [id number] Health [place] 9.2.7.2.686 [address] 3 [id number] AND 2 WOMENS 2020-12-17 2020-12-17 Office Shaq, UTP 1.2.840.114 [id number] [place] 13:00:30 13:10:30 Visit Nola PILLAI [id number] Price DONALD 9.2.7.2.686 MULTI [id number] SPECIALTY 6 2020-10-29 2020-10-29 Office Shaq, UTP 1.2.840.114 [id number] [place] 11:03:01 11:47:44 Visit Nola PILLAI [id number] Price DONALD 9.2.7.2.686 MULTI [id number] SPECIALTY 6 2020-08-21 2020-08-21 [facility] [id number] Univers 13:50:00 13:50:00 [facility] 2020-07-24 2020-07-24 Outpatient Ariel CRUZ [facility] [id number] Univers 13:50:00 13:50:00 [facility] 2020-04-30 2020-04-30 Outpatient STLMLC STLMLC [id number] Common 00:00:00 00:00:00 [facility] 2020-04-11 2020-04-11 Outpatient STLMLC STLMLC [id number] Common 00:00:00 00:00:00 [facility] 2020-03-29 2020-03-29 Outpatient STLMLC STLMLC [id number] Common 00:00:00 00:00:00 [facility] 2020-02-29 2020-02-29 Outpatient STLMLC STLMLC [id number] Common 00:00:00 00:00:00 [facility] 2020-02-28 2020-02-28 Outpatient STLMLC STLMLC [id number] Common 00:00:00 00:00:00 [facility] 2019-10-31 2019-10-31 Outpatient Honorio Salcedo [id number] Common 12:06:00 12:06:00 [address] [employer] [address] [facility] 2019-10-26 2019-10-26 Outpatient Honorio Salcedo [id number] Common 14:00:00 14:00:00 t [facility] [address] [facility] 2019-10-25 2019-10-25 [facility] [id number] Common 13:09:00 13:09:00 t [employer] [address] [facility] 2019-10-12 2019-10-13 Emergency [facility] [id number] 23:48:45 01:31:00 Anderabhilash Hurst 350.1.13.10 [place] 4.2.7.2.686 [place] [id number] 2019-07-30 2019-07-30 [facility] 1.2.840.114 [id number] 00:00:00 00:00:00 [facility] [id number] [place] 4.2.7.2.686 Professio [id number] nal 0[address] 2019-07-29 2019-07-29 Telephone Ana Paula JENSEN 1.2.840.114 [id number] 00:00:00 00:00:00 , Beth ESCOBEDO 350.1.13.10 [facility] 42.7.2.686 [id number] 2019-07-28 2019-07-28 Urgent Pob1, Acute [facility] 1.2.840.114 [id number] 08:59:05 09:39:16 [facility] [id number] [place] 4.2.7.2.686 Professio [id number] nal 044 Office [address] 2019-07-28 2019-07-28 Outpatient Ariel MINAYA, [facility] [id number] Univers 09:20:00 09:20:00 ALLYSSA gerber [facility] 2019-07-01 2019-07-01 Out[facility] [id number] Common 13:59:00 13:59:00 [address] [place] [facility] [address] [facility] 2019-06-30 2019-06-30 Outpatient [facility] [id number] Common 10:00:00 10:00:00 t [place] [facility] [address] [facility] 2019-06-01 2019-06-01 Outpatient Honorio [facility] 29 [id number] Common 08:22:00 08:22:[address] [facility] 2019-05-30 2019-05-30 Outpatient Honorio [facility] 29 [id number] Common 09:00:00 09:00:00 t [employer] [address] [facility] Results Test Description Test Time Test Comments Results Result Comments Source CULTURE, URINE 2021-02-21 00:00:00 Test Item Value Reference Range Interpretation Comme nts CULTURE, URINE (test code = 40990) SPECIMEN NUMBER: [id number] CULTURE, [id number] 00:00:00 Test Item Value Reference Range Interpretation Comments CULTURE, URINE (test SPECIMEN NUMBER: code = 70746) [id number] URINE CULTURE, NO [id number] 00:00:00 Test Item Value Reference Range Interpretation Comments URINE CULTURE, NO SPECIMEN NUMBER: SENS (test code = 605569431 64528) URINE CULTURE, NO [id number] 00:00:00 Test Item Value Reference Range Interpretation Comments URINE CULTURE, NO SPECIMEN NUMBER: SENS (test code = 599913052 27595) SARS-CoV-2 (COVID-19) by RT-PCR (HIGH RISK)2019-11-19 00:00:00 Test Item Value Reference Range Interpretation Comments SARS-CoV-2 INTERPRETATION (test POSITIVE code = 93983) SOURCE (test code = 49732) NOT SPECIFIED SARS-CoV-2 (COVID-19) by RT-PCR (HIGH RISK)2019-11-19 00:00:00 Test Item Value Reference Range Interpretation Comments SARS-CoV-2 INTERPRETATION (test POSITIVE code = 93461) SOURCE (test code = 90857) NOT SPECIFIED HIV AB/AG COMBO RFLX [id number] 00:00:00 Test Item Value Reference Range Interpretation Comments HIV 1/2 AB/AG RFLX CONF (test NON-REACTIVE code = 3514) HIV AB/AG COMBO RFLX [id number] 00:00:00 Test Item Value Reference Range Interpretation Comments HIV 1/2 AB/AG RFLX CONF (test NON-REACTIVE code = 3514) ACUTE HEPATITIS [id number] 00:00:00 Test Item Value Reference Range Interpretation Comments HEPATITIS A IgM (test code = NON-REACTIVE 36221) HEPATITIS B CORE IgM (test code NON-REACTIVE = 4644) HEPATITIS B SURF AG (test code = NON-REACTIVE 2739) HEPATITIS C ANTIBODY (test code NON-REACTIVE = 4675) INTERPRETATION HEPATITIS A: (NOTE) (test code = 2552) INTERPRETATION HEPATITIS B: (NOTE) (test code = 78704) INTERPRETATION HEPATITIS C: (NOTE) (test code = 34509) ACUTE HEPATITIS [id number] 00:00:00 Test Item Value Reference Range Interpretation Comments HEPATITIS A IgM (test code = NON-REACTIVE 82437) HEPATITIS B CORE IgM (test code NON-REACTIVE = 4644) HEPATITIS B SURF AG (test code = NON-REACTIVE 2739) HEPATITIS C ANTIBODY (test code NON-REACTIVE = 4675) INTERPRETATION HEPATITIS A: (NOTE) (test code = 2552) INTERPRETATION HEPATITIS B: (NOTE) (test code = 74457) INTERPRETATION HEPATITIS C: (NOTE) (test code = 81941) CHLAMYDIA, AMPLIFIED, [id number] 00:00:00 Test Item Value Reference Range Interpretation Comments CHLAMYDIA, TMA (test code = 23061) NEGATIVE CHLAMYDIA, AMPLIFIED, [id number] 00:00:00 Test Item Value Reference Range Interpretation Comments CHLAMYDIA, TMA (test code = 92336) NEGATIVE GC, AMPLIFIED, [id number] 00:00:00 Test Item Value Reference Range Interpretation Comments GONORRHEA, TMA (test code = 67752) NEGATIVE GC, AMPLIFIED, [id number] 00:00:00 Test Item Value Reference Range Interpretation Comments GONORRHEA, TMA (test code = 95646) NEGATIVE H. PYLORI IgG, [id number] 00:00:00 Test Item Value Reference Range Interpretation Comments H. PYLORI IgG, QUAL (test code = NEGATIVE 4565) [id number] 00:00:00 Test Item Value Reference Range Interpretation Comments RPR RESULT (test code = NON-REACTIVE 3501) RPR TITER (test code = 3500) NOT INDIC. TITER [id number] 00:00:00 Test Item Value Reference Range Interpretation Comments RPR RESULT (test code = NON-REACTIVE 3501) RPR TITER (test code = 3500) NOT INDIC. TITER [id number] 00:00:00 Test Item Value Reference Range Interpretation Comments RPR RESULT (test code = NON-REACTIVE 3501) RPR TITER (test code = 3500) NOT INDIC. TITER
--- NOTE | 2023-02-15 15:29 | ER ---
Nurse's Notes [facility] Name: Becka Lorenzo Age: 47 yrs Sex: Female : 1975 Arrival Date: 02/15/2023 Time: 15:04 Bed 20 Private MD: Diagnosis: Allergic Reaction Presentation: 02/15 15:17 Chief complaint: Patient states: "2 days ago the dogs got into poison pedrito and now I mb9 have it on my chest, neck, and arms. It's itchy and red". Coronavirus screen: Vaccine status: Patient reports receiving the 2nd dose of the covid vaccine. Ebola Screen: No symptoms or risks identified at this time. Initial Sepsis Screen: Does the patient meet any 2 criteria? No. Patient's initial sepsis screen is negative. Does the patient have a suspected source of infection? No. Patient's initial sepsis screen is negative. Risk Assessment: Do you want to hurt yourself or someone else? Patient reports no desire to harm self or others. Onset of symptoms was February 15, 2023. 15:17 Method Of Arrival: Ambulatory 9 15:17 Acuity: LOW 4 mb9 Triage Assessment: 15:18 General: Appears uncomfortable, Behavior is calm, cooperative. Pain: Denies pain. Derm: mb9 Rash noted that is itchy, red, on chest, right arm, left arm, right leg, left leg and neck. Musculoskeletal: Range of motion: intact in all extremities. 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 - Social history:: Smoking status: unknown. Screenin:29 [facility] ED Fall Risk Assessment (Adult) History of falling in the last 3 months, ld1 including since admission No falls in past 3 months (0 pts) Confusion or Disorientation No (0 pts) Intoxicated or Sedated No (0 pts) Impaired Gait No (0 pts) Mobility Assist Device Used No (0 pt) Altered Elimination No (0 pt) Score/Fall Risk Level 0 - 2 = Low Risk. Abuse screen: Denies threats or abuse. Nutritional screening: No deficits noted. Tuberculosis screening: No symptoms or risk factors identified. Assessment: 15:29 General: Appears uncomfortable, well groomed, well developed, well nourished, Behavior ld1 is calm, cooperative, appropriate for age, Reports 2 days ago dogs got into poison pedrito and got it on her. Chest, face and neck have a red and itchy rash. 15:29 Pain: Denies pain. Neuro: Level of Consciousness is awake, alert, obeys commands, ld1 Oriented to person, place, time, situation, Appropriate for age. Cardiovascular: Capillary refill < 3 seconds Patient's skin is warm and dry. Respiratory: Airway is patent Respiratory effort is even, unlabored, Respiratory pattern is regular, symmetrical. Derm: Rash noted that is red, raised, on neck and left leg and right leg and left arm and right arm and chest. Vital Signs: 15:17 BP 140 / 80; Pulse 90; Resp 18; Temp 98; Pulse Ox 100% on R/A; Weight 108.86 kg; Height mb9 5 ft. 2 in. ; 15:29 BP 126 / 40; Pulse 89; Resp 17; Pulse Ox 100% on R/A; ld1 15:17 Body Mass Index 43.90 (108.86 kg, 157.48 cm) mb9 ED Course: 15:11 Patient arrived in ED. mg5 15:12 Arm band placed on. mb9 15:14 Jaime Flores MD is Attending Physician. ec2 15:18 Triage completed. mb9 15:24 Rosalba Desai, EREN is Primary Nurse. ld1 15:29 Patient has correct armband on for positive identification. Bed in low position. Call ld1 light in reach. Side rails up X 1. Provided Education on: POC. Verbalized understanding. . 15:29 No provider procedures requiring assistance completed. Patient did not have IV access ld1 during this emergency room visit. Administered Medications: 15:37 Drug: predniSONE PO 40 mg PO once Route: PO; ld1 15:42 Follow up: Response: No adverse reaction ld1 15:47 Follow up: Response: No adverse reaction ld1 Medication: 15:29 VIS not applicable for this client. ld1 Outcome: 15:28 Discharge ordered by . ec2 15:46 Discharged to home ambulatory, ld1 15:46 Condition: stable 15:46 Discharge instructions given to patient, Instructed on discharge instructions, follow up and referral plans. medication usage, Demonstrated understanding of instructions, follow-up care, medications, Prescriptions given X 1, 15:47 Patient left the ED. ld1 Signatures: Rosalba Desai RN RN ld1 Glenda Summers RN RN [facility] Jaime Flores MD MD ec2 Corrections: (The following items were deleted from the chart) 15:31 15:29 General: Appears uncomfortable, well groomed, well developed, well nourished, ld1 Behavior is calm, cooperative, appropriate for age, Reports 2 days ago dogs got into poison pedrito and got it on her. Chest, face and arms have a red and itchy rash. ld1
--- NOTE | 2023-02-15 15:29 | EDPHYS ---
Physician Documentation [facility] Name: Becka Lorenzo Age: 47 yrs Sex: Female : 1975 Arrival Date: 02/15/2023 Time: 15:04 Bed 20 Private MD: ED Physician Jaime Flores HPI: 02/15 15:30 This 47 yrs old Female presents to ER via Ambulatory with complaints of ec2 Poision lana. 15:30 Patient arrives today due to concern for skin rash. States that she was concerned that ec2 she had a poison lana exposure. Patient reports that her dogs had been around poison lana and subsequently interacted with her. Patient complaining of itchiness to the bilateral upper extremities as well as her neck and back. Patient reports no fevers or chills, no facial swelling, no nausea or vomiting or difficulty breathing. . 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 - Social history:: Smoking status: unknown. ROS: 15:30 Constitutional: as per hpi ec2 Exam: 15:30 Constitutional: GEN: NAD Head: atraumatic Eyes: EOMI Ears: External ears are ec2 normal. CV: regular rate LUNGS: no respiratory distress ABD: non-distended SKIN: Dermatitis noted to the bilateral upper extremities as well as the anterior chest wall and neck MSK: no evidence of trauma NEURO: moves all extremities equally Vital Signs: 15:17 BP 140 / 80; Pulse 90; Resp 18; Temp 98; Pulse Ox 100% on R/A; Weight 108.86 kg; Height mb9 5 ft. 2 in. ; 15:29 BP 126 / 40; Pulse 89; Resp 17; Pulse Ox 100% on R/A; ld1 15:17 Body Mass Index 43.90 (108.86 kg, 157.48 cm) mb9 MDM: 15:14 Patient medically screened. ec2 15:30 Data reviewed: vital signs. ED course: Patient arrives today due to concern for skin ec2 rash. Examination remarkable for well-appearing nontoxic dividual is otherwise in no acute distress who has dermatitis noticed on examination. We will start the patient on steroids, instructed on topical medication as well as Benadryl. Will discharge home, return precautions given.. Administered Medications: 15:37 Drug: predniSONE PO 40 mg PO once Route: PO; ld1 15:42 Follow up: Response: No adverse reaction ld1 15:47 Follow up: Response: No adverse reaction ld1 Disposition Summary: 02/15/23 15:28 Discharge Ordered Notes: Location: Home ec2 Condition: Stable ec2 Diagnosis - Allergic Reaction ec2 Discharge Instructions: - Discharge Summary Sheet ec2 - Poison Lana Dermatitis, [id number] ec2 Forms: - Work release form ld1 - Medication Reconciliation Form ec2 - Thank You Letter ec2 - Antibiotic Education ec2 - Prescription Opioid Use ec2 - Patient Portal Instructions ec2 - Leadership Thank You Letter ec2 Signatures: Rosalba Desai RN RN ld1 Glenda Summers RN RN mb9 Jaime Flores MD MD ec2
[2023-02-15] MEDS ORDERED: predniSONE 20 MG TAB ONE (15:48)
[2023-02-15 15:59] VITALS: TEMP 98; O2SAT 100
[2023-02-15 16:09] VITALS: BP 126/40
== END 2023-02-15 15:47 | disposition home or self-care (01) ==
LOC: ER 15:04
DX: L30.9 Dermatitis, unspecified (principal); Z88.0 Allergy status to penicillin; Z88.1 Allergy status to other antibiotic agents; Z88.5 Allergy status to narcotic agent
CPT/HCPCS: 99283; J7512

== ENCOUNTER 2024-04-07 02:16 | Emergency (ER) | payer OTHER ==
--- OUTSIDE RECORDS SUMMARY | 2024-04-07 02:20 | XMS REPORT | Continuity of Care Document ---
Author Name Unknown Address [address] [facility] [address] [place] [address] [facility] thconnect Address [address] [facility] [address] [place] [address] Care Team Providers Care Netezza Developer Name Role Phone Bhavani Rae Primary Care Physician Arnaud James Attending Clinician Unavailable NOLA NEW Attending Clinician Unavailable GC_GCBZW_Kadiyala_S Attending Clinician Unavaila MAYO Marquez Attending Clinician Unavailable RUTHIE CAREY Attending Clinician Unavailable Tiffany Nieto RN Attending Clinician Unavaila Katya Benites RN Attending Clinician Unavaila YIMI Jessica Attending Clinician Unavailable Ander Prasad DO Attending Clinician [phone] Ruthie May Attending Clinician [phone] Beth Goss MD Attending Clinician [facility] Attending Clinician ALLYSSA Morales Attending Clinician Unavailable GC_GCBZW_Kadiyala_S Admitting Clinician Unavaila marian Payers Payer Name Policy Type Policy Number Effective Date Expirati on Date Source [facility] - OUT OF STATE [id number] 2019 00:00:00 [facility] [id number] 2020 00:00:00 [facility] 90 DEGREE BENEFIT [id number] 2021 00:00:00 Problems Condition Name Condition Details Condition Category Status Onset Date Resolution Date Last Treatment Date Treating Clinician Comments Source [id number] Allergic sinusitis Problem Active [facility] 6550373 Chronic gastritis without bleeding, unspecifie d gastritis type Problem Active [facility] [id number] Depression with anxiety Problem Active [facility] 717777323 Body mass index (BMI) 40.0-44.9, adult Problem Active [facility] [id number] 9104 Morbid (severe) obesity due to excess calories Problem Active [facility] 55315578 Vitamin D deficiency disease Problem Active [facility] Allergies, Adverse Reactions, Alerts Allergy Name Allergy Type Status Severity Reaction(s) Onset Date Inactive Date Treating Clinician Comments Source Amoxicil anat - Oral Propensi ty to adverse reaction to drug Active 9- 00:00: 00 Bennett Carranza Hydrocod one Allergy to substanc e Active Hallucinatio ns 4-09 00:00: 00 [facility] HYDROCOD ONE DRUG INGREDI Active Hallucinates 4-09 00:00: 00 [facility] Amoxicil anat Allergy to substanc e Active Rash 0 3-12 00:00: 00 [facility] Hydrocod one-Acet aminophe n Drug Allergy Active Rash 0 2-10 00:00: 00 [facility] Hydrocod one Propensi ty to adverse reaction to drug Active 1-27 00:00: 00 Bennettarnaldo Carranza Penicill ins Propensi ty to adverse reaction to drug Active 9-13 00:00: 00 Bennett Carranza Morphine Allergy to substanc e Active Shortness of breath 16 00:00: 00 [facility] MORPHINE DRUG INGREDI Active High Anaphylaxis 08-03 00:00: 00 [facility] morphine morphine Active Unknown [facility]mo [facility] acetamin ophen / hydrocod one acetamin ophen / hydrocod one Active Unknown [facility] amoxicil anat amoxicil anat Active yeast [facility] Social History Social Habit Start Date Stop Date Quantity Comments Source Exposure to SARS-CoV-2 (event) Not sure [facility] History of Tobacco Use [facility] Sex Assigned At [facility] Tobacco use and exposure 2020-10-29 00:00:00 2020-10-29 00:00:00 Never used [facility] Alcohol intake 2020-10-29 00:00:00 2020-10-29 00:00:00 .29 /d [facility] Smoking Status Start Date Stop Date Source Light tobacco smoker 2020-10-29 00:00:00 [facility] Never Smoker [facility] Medications Ordered Medication Name Filled Medication Name Start Date Stop Date Current Medication? Ordering Clinician Indication Dosage Frequency Signature (SIG) Comments Components Source TAKE 1 TABLET 1 TIME ONLY. - 00:00: 00 Yes 150 Bennett Carranza TAKE 1 TABLET TWICE DAILY UNTIL FINISHED. 2-05 00:00: 00 Yes 500 Bennett Carranza TAKE 1 TABLET DAILY. 2022-04 1- 00:00: 00 Yes 10 Bennett Carranza APPLY SPARINGLY TO AFFECTED AREA(S) TWICE DAILY 2022-04 1-10 00:00: 00 05-28 00:00 :00 No 1 Bennett Carranza TAKE 1 TABLET BY MOUTH EVERY DAY FOR 5 DAYS 2022-04 0-30 00:00: 00 Yes Bennett Carranza TAKE 1 TABLET BY MOUTH EVERY 8 HOURS FOR 7 DAYS 8-26 00:00: 00 Yes Bennett Carranza TAKE 1 TABLET DAILY. - 00:00: 00 05-28 00:00 :00 No 10 Bennett Carranza TAKE 10 ML EVERY 6 TO 8 HOURS NEEDED FOR COUGH -02 00:00: 00 05-28 00:00 :00 No [id number] Bennett Carranza TAKE 10 ML EVERY 6 TO 8 HOURS NEEDED FOR COUGH 4-23 00:00: 00 05-28 00:00 :00 No [id number] Bennett Carranza IBUPROFEN 800MG 2-25 00:00: 00 Yes Bennett Carranza TAKE 1 CAPSULE 3 TIMES DAILY NEEDED. 0 2-07 00:00: 00 05-28 00:00 :00 No 200 Bennett Carranza TAKE 1 CAPSULE BY MOUTH EVERY 12 HOURS FOR 10 DAYS 2021-04 1- 00:00: 00 Yes Bennett Carranza Dose Unknown 0 - 00:00: 00 No Dose Unknown 0 01-10 00:00: 00 No TAKE 1 TABLET BY MOUTH EVERY DAY 0 - 00:00: 00 No Dose Unknown 0 01-10 00:00: 00 Yes Bennett Carranza Dose Unknown 01-10 00:00: 00 Yes Bennett Carranza TAKE 1 TABLET BY MOUTH EVERY DAY 0 01-10 00:00: 00 Yes Bennett Carranza Dose Unknown - 00:00: 00 No Dose Unknown 0 - 00:00: 00 Yes Bennett Carranza Bromfed DM 2 mg-30 mg-10 mg/5 mL oral syrup 0 5-07 00:00: 00 No 10mg/5 mL Bromfed DM 2 mg-30 mg-10 mg/5 mL oral syrup 0 5-07 00:00: 00 Yes 10mg/5 mL Bennett Carranza Dose Unknown 4-13 00:00: 00 No Dose Unknown 0 4-13 00:00: 00 No Dose Unknown 0 4-13 00:00: 00 No Dose Unknown 2020-04 1- 00:00: 00 No Dose Unknown 2020-04 1- 00:00: 00 Yes Bennett Carranza Dose Unknown 2020-04- 00:00: 00 No Dose Unknown 2020-04- 00:00: 00 Yes Bennett Carranza metroNIDAZO LE (Flagyl) 500 MG tablet 12-20 00:00: 00 12-28 04:59 :00 No [id number] 500mg Q.5D Take 1 tablet (500 mg total) by mouth 2 (two) times a day for 7 days. [facility] fluconazole (Diflucan) 150 MG tablet 12-17 00:00: 00 12-18 04:59 :00 No [id number] 150mg Take 1 tablet (150 mg total) by mouth 1 (one) time for 1 dose. Repeat in 7 days if symptoms persist. [facility] Vitamin B12 (Cyanocobal strickland) Vitamin B12 (Cyanocobal strickland) 2-02 00:00: 00 No 1000ug [facility] Vitamin B12 (Cyanocobal strickland) Vitamin B12 (Cyanocobal strickland) 1-20 00:00: 00 No 1000ug [facility] Vitamin B12 (Cyanocobal strickland) Vitamin B12 (Cyanocobal strickland) 1- 00:00: 00 No 1000ug [facility] Vitamin B12 (Cyanocobal strickland) Vitamin B12 (Cyanocobal strickland) 2019-04 2- 00:00: 00 No 1000ug [facility] Vitamin B12 (Cyanocobal strickland) Vitamin B12 (Cyanocobal strickland) 2019-04 2- 00:00: 00 No 1000ug [facility] Kenalog (Triamcinol one) Kenalog (Triamcinol one) 3-12 00:00: 00 No 40mg [facility] Zithromax Z-Rd Zithromax Z-Rd 3-12 00:00: 00 07-04 00:00 :00 No Arnaud James 2 tablets today, then 1 tablet once a day [facility] Vitamin D3 50,000 Vitamin D3 50,000 2-12 00:00: 00 No 1{table t} Vitamin D3 50,000 Vitamin D3 Vitamin D3 2-12 00:00: 00 08-23 00:00 :00 No Arnaud James 1 tablet [facility] Dose Unknown 05-16 00:00: 00 No Dose Unknown 05-16 00:00: 00 Yes Bennett Carranza Omeprazole 40 MG Omeprazole 40 MG No QD Omeprazole 40 MG Vital Signs Vital Name Observation Time Observation Value Comments S ource Systolic blood pressure 2020-12-17 18:11:00 106 mm[Hg] [facility] Diastolic blood pressure 2020-12-17 18:11:00 69 mm[Hg] [facility] Heart rate 2020-12-17 18:11:00 76 /min [facility] Body temperature 2020-12-17 18:11:00 36.44 Yamileth [facility] Body weight 2020-12-17 18:11:00 103.42 kg [facility] BMI 2020-12-17 18:11:00 41.70 kg/m2 [facility] Systolic blood pressure 2020-10-29 16:19:00 114 mm[Hg] [facility] Diastolic blood pressure 2020-10-29 16:19:00 70 mm[Hg] [facility] Heart rate 2020-10-29 16:19:00 85 /min [facility] Body temperature 2020-10-29 16:19:00 36.94 Yamileth [facility] Body height 2020-10-29 16:19:00 157.5 cm [facility] Body weight 2020-10-29 16:19:00 100.245 kg [facility] BMI 2020-10-29 16:19:00 40.42 kg/m2 [facility] Respiratory Rate 2023-12-05 13:05:00 Bennett F Dillon BP Systolic 2023-12-05 13:05:00 136 mm[Hg] Step hen F Dillon BP Diastolic 2023-12-05 13:05:00 84 mm[Hg] Dhaval phen F Dillon Weight Measured 2023-12-05 13:05:00 254.20 pounds Bennett F Dillon Height Measured 2023-12-05 13:05:00 63.00 inches Bennett F Dillon Body Temperature 2023-12-05 13:05:00 98.10 degrees Bennett F Dillon Heart Rate 2023-12-05 13:05:00 94.00 /min Belia en F Dillon BP Systolic 2023-05-21 17:02:00 132 mm[Hg] Step hen F Dillon BP Diastolic 2023-05-21 17:02:00 99 mm[Hg] Dhaval phen F Dillon Weight Measured 2023-05-21 17:02:00 244.80 pounds Bennett F Dillon Height Measured 2023-05-21 17:02:00 63.00 inches Bennett F Dillon Body Temperature 2023-05-21 17:02:00 98.20 degrees Bennett F Dillon Heart Rate 2023-05-21 17:02:00 87.00 /min Belia en F Dillon Respiratory Rate 2023-05-21 17:02:00 19.00 /min Bennett F Dillon BP Systolic 2023-02-27 13:55:00 125 mm[Hg] Step hen F Dillon BP Diastolic 2023-02-27 13:55:00 81 mm[Hg] Dhaval phen F Dillon Weight Measured 2023-02-27 13:55:00 253.20 pounds Bennett F Dillon Height Measured 2023-02-27 13:55:00 63.00 inches Bennett F Dillon Body Temperature 2023-02-27 13:55:00 98.30 degrees Bennett F Dillon Heart Rate 2023-02-27 13:55:00 72.00 /min Belia en F Dillon Respiratory Rate 2023-02-27 13:55:00 18.00 /min Bennett F Dillon BP Systolic 2023-02-17 16:10:00 121 mm[Hg] Step hen F Dillon BP Diastolic 2023-02-17 16:10:00 83 mm[Hg] Dhaval phen F Dillon Weight Measured 2023-02-17 16:10:00 247.80 pounds Bennett F Dillon Height Measured 2023-02-17 16:10:00 63.00 inches Bennett F Dillon Body Temperature 2023-02-17 16:10:00 98.20 degrees Bennett F Dillon Heart Rate 2023-02-17 16:10:00 87.00 /min Belia en F Dillon Respiratory Rate 2023-02-17 16:10:00 18.00 /min Bennett F Dillon BP Systolic 2021-07-31 09:11:00 118 mm[Hg] Step hen F Dillon BP Diastolic 2021-07-31 09:11:00 57 mm[Hg] Dhaval phen F Dillon Weight Measured 2021-07-31 09:11:00 231.00 pounds Bennett F Dillon Height Measured 2021-07-31 09:11:00 63.00 inches Bennett F Dillon Body Temperature 2021-07-31 09:11:00 97.30 degrees Bennett F Dillon Heart Rate 2021-07-31 09:11:00 78.00 /min Belia en F Dillon Respiratory Rate 2021-07-31 09:11:00 Bennett F Dillon BP Systolic 2021-02-19 14:43:00 139 mm[Hg] Step hen F Dillon BP Diastolic 2021-02-19 14:43:00 93 mm[Hg] Dhaval phen F Dillon Weight Measured 2021-02-19 14:43:00 228.00 pounds Bennett F Dillon Height Measured 2021-02-19 14:43:00 63.00 inches Bennett F Dillon Body Temperature 2021-02-19 14:43:00 98.50 degrees Bennett F Dillon Heart Rate 2021-02-19 14:43:00 93.00 /min Beila en F Dillon Respiratory Rate 2021-02-19 14:43:00 Bennett F Dillon BP Systolic 2021-02-18 09:49:00 128 mm[Hg] Step hen F Dillon BP Diastolic 2021-02-18 09:49:00 82 mm[Hg] Dhaval phen F Dillon Weight Measured 2021-02-18 09:49:00 228.00 pounds Bennett F Dillon Height Measured 2021-02-18 09:49:00 63.00 inches Bennett F Dillon Body Temperature 2021-02-18 09:49:00 98.90 degrees Bennett F Dillon Heart Rate 2021-02-18 09:49:00 Belia en F Dillon Respiratory Rate 2021-02-18 09:49:00 Bennett F Dillon BP Systolic 2019-05-19 13:58:00 123 mm[Hg] Step hen F Dillon BP Diastolic 2019-05-19 13:58:00 71 mm[Hg] Dhaval phen F Dillon Weight Measured 2019-05-19 13:58:00 221.00 pounds Bennett F Dillon Height Measured 2019-05-19 13:58:00 63.00 inches Bennett F Dillon Body Temperature 2019-05-19 13:58:00 98.50 degrees Bennett F Dillon Heart Rate 2019-05-19 13:58:00 89.00 /min Belia en F Dillon Respiratory Rate 2019-05-19 13:58:00 18.00 /min Bennett F Dillon BP Systolic 2019-05-16 08:53:00 118 mm[Hg] Step hen F Dillon BP Diastolic 2019-05-16 08:53:00 70 mm[Hg] Dhaval phen F Dillon Weight Measured 2019-05-16 08:53:00 219.40 pounds Bennett F Dillon Height Measured 2019-05-16 08:53:00 63.00 inches Bennett F Dillon Body Temperature 2019-05-16 08:53:00 98.30 degrees Bennett F Dillon Heart Rate 2019-05-16 08:53:00 75.00 /min Belia en F Dillon Respiratory Rate 2019-05-16 08:53:00 16.00 /min Bennett F Dillon BP Systolic 2016-01-01 09:34:00 122 mm[Hg] Step hen F Dillon BP Diastolic 2016-01-01 09:34:00 84 mm[Hg] Dhaval phen F Dillon Weight Measured 2016-01-01 09:34:00 227.40 pounds Bennett F Dillon Height Measured 2016-01-01 09:34:00 63.00 inches Bennett F Dillon Body Temperature 2016-01-01 09:34:00 98.00 degrees Bennett F Dillon Heart Rate 2016-01-01 09:34:00 77.00 /min Belia en F Dillon Respiratory Rate 2016-01-01 09:34:00 16.00 /min Bennett F Dillon Plan of Care Planned Activity Planned Date Details Comments Source Goal Plan of Care Note [code = 39843-4] Goal Plan of Care Note [code = 56698-8] Goal Plan of Care Note [code = 67186-4] Goal Plan of Care Note [code = 18936-9] Goal Plan of Care Note [code = 40739-5] Goal Plan of Care Note [code = 63057-1] Goal Plan of Care Note [code = 04204-1] Goal Plan of Care Note [code = 26876-6] Goal Plan of Care Note [code = 74759-8] Goal Plan of Care Note [code = 11135-3] Goal Plan of Care Note [code = 42263-4] Goal Plan of Care Note [code = 51211-7] Goal Plan of Care Note [code = 43873-1] Goal Plan of Care Note [code = 02400-1] Goal Plan of Care Note [code = 02921-3] Goal Plan of Care Note [code = 78459-5] Goal Plan of Care Note [code = 99626-5] Goal Plan of Care Note [code = 14985-1] Goal Plan of Care Note [code = 69675-5] Goal Plan of Care Note [code = 85738-0] Goal Plan of Care Note [code = 44388-2] Goal Plan of Care Note [code = 25062-4] Encounters Start Date/Time End Date/Time Encounter Type Admission Type Attending [facility] Care Department Encounter ID Source 2021-05-15 12:27:12 [facility] [id number] [facility] 2021-05-15 12:25:33 [facility] [id number] [facility] 2021-05-15 12:24:48 [facility] [id number] [facility] 2021-05-15 12:22:12 [facility] [id number] [facility] 2021-05-15 11:13:26 [facility] [id number] [facility] 2021-05-15 11:12:29 [facility] [id number] [facility] 2021-05-15 11:07:25 [facility] [id number] [facility] 2021-02-15 02:46:29 Emergency [facility] [id number] [facility] 2020-09-20 14:05:53 Outpatient SHAQ NOLA [facility] [id number] [facility] 2024-04-06 08:09:12 2024-04-06 08:09:12 Outpatient SFA [facility] [id number] Bennett Carranza 2023-12-05 13:14:14 2023-12-05 13:14:14 Outpatient [facility] [id number] Bennett Carranza 2023-12-05 00:00:00 2023-12-05 00:00:00 Outpatient Visit [facility] [id number] Bennett Carranza 2023-05-21 16:48:33 2023-05-21 16:48:[address] [facility] [id number] Bennett Carranza 2023-02-27 13:51:44 2023-02-27 13:51:44 Outpatient [facility] [id number] Bennett Carranza 2023-02-17 16:06:09 2023-02-17 16:06:[address] [facility] [id number] Bennett Carranza 2023-02-13 00:00:00 2023-02-13 00:00:00 Outpatient GC_GCBZW_Ka diyala_S [facility] [id number] [facility] 2022-01-10 00:00:00 2022-01-10 00:00:00 Outpatient Visit [id number] 2021-08-22 10:00:00 2021-08-22 10:00:00 Outpatient MAYO MARCOS [facility] [id number] [facility] 2021-07-15 00:00:00 2021-07-15 00:00:00 (TEL) [facility]C [facility] [id number] [facility] 2021-05-28 00:00:00 2021-05-28 00:00:00 (TEL) STLMLC STLMLC [id number] [facility] 2021-04-11 10:40:00 2021-04-11 10:40:00 Outpatient RUTHIE FERNANDEZ [facility] [id number] [facility] 2020-12-20 00:00:00 2020-12-20 00:00:00 Telephone Tiffany Nieto Alicia [facility] AND WOMENS [id number] [facility] 2020-12-20 00:00:00 2020-12-20 00:00:00 Orders Only Leffall, Crystal Leffall, Crystal [facility] [address] AND WOMENS [id number] [facility] 2020-12-17 13:00:30 2020-12-17 13:10:30 Office Visit Jossie Newia [facility] [id number] [facility] 2020-10-29 11:03:01 2020-10-29 11:47:44 Office Visit Jossie Newia [facility] [id number] [facility] 2020-08-21 13:50:00 2020-08-21 13:50:00 Outpatient YIMI PETERSEN [facility] [id number] [facility] 2020-07-24 13:50:00 2020-07-24 13:50:00 Outpatient YIMI PETERSEN [facility] [id number] [facility] 2020-04-30 00:00:00 2020-04-30 00:00:00 Outpatient [facility] [id number] [facility] 2020-04-11 00:00:00 2020-04-11 00:00:00 Outpatient [facility] [id number] [facility] 2020-03-29 00:00:00 2020-03-29 00:00:00 Outpatient STLMLC STLMLC [id number] [facility] 2020-02-29 00:00:00 2020-02-29 00:00:00 Outpatient STLMLC STLMLC [id number] [facility] 2020-02-28 00:00:00 2020-02-28 00:00:00 Outpatient STLMLC ST[facility]C [id number] [facility] 2019-10-31 12:06:00 2019-10-31 12:06:00 [facility] [address] [facility] [id number] [facility] 2019-10-26 14:00:00 2019-10-26 14:00:00 [address] [facility] [address] [facility] [id number] [facility] 2019-10-25 13:09:00 2019-10-25 13:09:00 [facility] [address] [facility] [address] [facility] [id number] [facility] 2019-10-12 23:48:45 2019-10-13 01:31:00 Emergency Ander Prasad [facility] [id number] 2019-07-30 00:00:00 2019-07-30 00:00:00 Telephone Ruthie Carey [facility] [id number] 2019-07-29 00:00:00 2019-07-29 00:00:00 Telephone Beth Goss [facility] [id number] 2019-07-28 08:59:05 2019-07-28 09:39:16 Urgent Care Pob1, Acute Care Clinic [facility] [id number] 2019-07-28 09:20:00 2019-07-28 09:20:00 Outpatient ALLYSSA GAONA [facility] [id number] [facility] 2019-07-01 13:59:00 2019-07-01 13:59:00 Outpatient [facility] [id number] [facility] 2019-06-30 10:00:00 2019-06-30 10:00:00 Outpatient [facility] [id number] [facility] 2019-06-01 08:22:00 2019-06-01 08:22:00 Outpatient [facility] [id number] [facility] 2019-05-30 09:00:00 2019-05-30 09:00:00 Outpatient [facility] [id number] [facility] Results Test Description Test Time Test Comments Results Result Co mments Source CULTURE, URINE 2023-05-24 11:30:22 SPECIMEN NUMBER: [id number] CULTURE, URINE SPECIMEN NUMBER: [id number] SPECIMEN COMMENT: URINE SOURCE: URINE REPORT STATUS: FINAL FINAL REPORT: 05/24/2023 50-100,000 CFU/ML UROGENITAL GUILHERME PRESENT NO COMMON PATHOGENS UNLESS OTHERWISE INDICATED, ALL TESTING PERFORMED AT [facility] [address] [place] [address] TERRAPIN FISHER: GEOVANY TAPIA M.D. CLIA NUMBER [id number] [place]. [id number] Bennett Brannon AustinVAGINAL PATHOGENS DNA [id number] 11:53:45* Test Item Value Reference Range Interpretation Comme nts EVA SPECIES (test code = 73902) POSITIVE NEGATIVE A G. VAGINALIS (test code = 30920) POSITIVE NEGATIVE A T. VAGINALIS (test code = 79159) NEGATIVE NEGATIVE Note: The BD [facility] VPIII Microbial Identification Testis a DNA probe test intended for use in the detectionand identification of Eva species, Gardnerellavaginalis and Trichomonas vaginalis nucleic acid. UNLESS OTHERWISE INDICATED, ALL TESTING PERFORMED AT [facility] [employer] [facility] [address] [place] [address] TERRAPIN FISHER: GEOVANY TAPIA M.D. CLIA NUMBER [id number] [place]. [id number] VAGINAL PATHOGENS DNA [id number] 00:00:00* Test Item Value Reference Range Interpretation Comme nts EVA SPECIES (test code = 09921) POSITIVE G. VAGINALIS (test code = 88648) POSITIVE T. VAGINALIS (test code = 88173) NEGATIVE Bennett Hess, [id number] 00:00:00* Test Item Value Reference Range Interpretation Comme nts CULTURE, URINE (test code = 41666) SPECIMEN NUMBER: [id number] URINE CULTURE, NO [id number] 00:00:00* Test Item Value Reference Range Interpretation Comme nts URINE CULTURE, NO SENS (test code = 21283) SPECIMEN NUMBER: [id number] URINE CULTURE, NO [id number] 00:00:00* Test Item Value Reference Range Interpretation Comme nts URINE CULTURE, NO SENS (test code = 02425) SPECIMEN NUMBER: [id number] Bennett CarranzaCULTNBA, [id number] 00:00:00* Test Item Value Reference Range Interpretation Comme nts CULTURE, URINE (test code = 48886) SPECIMEN NUMBER: [id number] Bennett CarranzaSARS-CoV-2 (COVID-19) by RT-PCR (HIGH RISK)2019-11-19 00:00:00* Test Item Value Reference Range Interpretation Comme nts SARS-CoV-2 INTERPRETATION (t est code = 30283) POSITIVE SOURCE (test code = 07561) NOT SPECIFIED SARS-CoV-2 (COVID-19) by RT-PCR (HIGH RISK)2019-11-19 00:00:00* Test Item Value Reference Range Interpretation Comme nts SARS-CoV-2 INTERPRETATION (t est code = 65998) POSITIVE SOURCE (test code = 29245) NOT SPECIFIED Bennett CarranzaHIV AB/AG COMBO RFLX [id number] 00:00:00* Test Item Value Reference Range Interpretation Comme nts HIV 1/2 AB/AG RFLX CONF (monie t code = 3514) NON-REACTIVE ACUTE HEPATITIS [id number] 00:00:00* Test Item Value Reference Range Interpretation Comme nts HEPATITIS A IgM (test code = 63335) NON-REACTIVE HEPATITIS B CORE IgM (test c ode = 4644) NON-REACTIVE HEPATITIS B SURF AG (test co de = 9412) NON-REACTIVE HEPATITIS C ANTIBODY (test c ode = 4675) NON-REACTIVE INTERPRETATION HEPATITIS A: (test code = 2552) (NOTE) INTERPRETATION HEPATITIS B: (test code = 07720) (NOTE) INTERPRETATION HEPATITIS C: (test code = 25362) (NOTE) CHLAMYDIA, AMPLIFIED, [id number] 00:00:00* Test Item Value Reference Range Interpretation Comme nts CHLAMYDIA, TMA (test code = 63053) NEGATIVE GC, AMPLIFIED, [id number] 00:00:00* Test Item Value Reference Range Interpretation Comme nts GONORRHEA, TMA (test code = 67091) NEGATIVE HIV AB/AG COMBO RFLX [id number] 00:00:00* Test Item Value Reference Range Interpretation Comme nts HIV 1/2 AB/AG RFLX CONF (monie t code = 3514) NON-REACTIVE Bennett CarranzaACUTE HEPATITIS [id number] 00:00:00* Test Item Value Reference Range Interpretation Comme nts HEPATITIS A IgM (test code = 08971) NON-REACTIVE HEPATITIS B CORE IgM (test c ode = 4644) NON-REACTIVE HEPATITIS B SURF AG (test co de = 2739) NON-REACTIVE HEPATITIS C ANTIBODY (test c ode = 4675) NON-REACTIVE INTERPRETATION HEPATITIS A: (test code = 2552) (NOTE) INTERPRETATION HEPATITIS B: (test code = 22838) (NOTE) INTERPRETATION HEPATITIS C: (test code = 22425) (NOTE) Bennett CarranzaCHLAMYDIA, AMPLIFIED, [id number] 00:00:00* Test Item Value Reference Range Interpretation Comme nts CHLAMYDIA, TMA (test code = 05919) NEGATIVE Bennett CarranzaGC, AMPLIFIED, [id number] 00:00:00* Test Item Value Reference Range Interpretation Comme nts GONORRHEA, TMA (test code = 43594) NEGATIVE Bennett CarranzaH. PYLORI IgG, [id number] 00:00:00* Test Item Value Reference Range Interpretation Comme nts H. PYLORI IgG, QUAL (test co de = 4565) NEGATIVE [id number] 00:00:00* Test Item Value Reference Range Interpretation Comme nts RPR RESULT (test code = 3501) NON-REACTIVE RPR TITER (test code = 3500) NOT INDIC. TITER H. PYLORI IgG, [id number] 00:00:00* Test Item Value Reference Range Interpretation Comme nts H. PYLORI IgG, QUAL (test co de = 4565) NEGATIVE Bennett [id number] 00:00:00* Test Item Value Reference Range Interpretation Comme nts RPR RESULT (test code = 3501) NON-REACTIVE RPR TITER (test code = 3500) NOT INDIC. TITER Bennett Brannon Dillon
[2024-04-07] MEDS ORDERED: NA CHLORIDE 0.9% 1,000 ML ONE (03:14)
[2024-04-07 03:44] LABS: Absolute Eosinophils 0.1 K/uL (0-0.5); Absolute Monocytes 0.5 K/uL (0.1-1.3); Absolute Neutrophil 4.2 K/uL (1.8-8.0); Basophils % 0.6 % (0-1.3); Eosinophils % 1.5 % (0-4.4); Hematocrit 43.6 % (36.0-45.0); Hemoglobin 14.5 g/dL (12.0-15.0); Lymphocytes % 38.3 % (15.3-44.8); MCH 31.6 pg (27.0-35.0); MCHC 33.2 g/dL (32.0-36.0); MCV 95.2 fL (80-100); MPV 9.8 fL (7.6-11.3); Monocytes % 5.9 % (3.3-12.3); Neutrophils % 53.7 % (41.7-73.7); Nucleated Red Blood Cells % 0.3 % (0-0); Platelets 214 thou/uL (152-406); RBC Red Blood Cell Count 4.58 M/uL (3.86-4.86)
[2024-04-07 04:02] LABS: Albumin 3.4 g/dL (3.4-5.0); Albumin/Globulin Ratio 0.9 (1.1-1.8); Anion Gap 11.4 mEq/L (5.0-15.0); Bilirubin Total 0.5 mg/dL (0.2-1.0); Potassium 3.4 mEq/L (3.5-5.1); Protein, Total 7.4 g/dL (6.4-8.2)
[2024-04-07 05:02] LABS: Specific Gravity > 1.030 (1.005-1.030); Sqamous Epithelial <5 /HPF (None Seen); Urine Bacteria 20-50 /HPF (<20); Urine Bilirubin NEGATIVE (Negative); Urine Blood Negative (Negative); Urine Clarity Extremely Turbid (Clear); Urine Color Dark-Yellow (Yellow); Urine Crystals Unidentified Few /HPF (None Seen); Urine Culture Reflex Order REFLEXED; Urine Glucose 4+ (Over) (Negative); Urine Ketones 2+ (Negative); Urine Micro Reflex YN NO BILL MICROSCOPIC; Urine Mucus Slight /HPF (None Seen); Urine Nitrite 2+ (Negative); Urine Protein NEGATIVE (Negative); Urine RBC <5 /HPF (None Seen); Urine Urobilinogen Normal (Normal); Urine Yeast (Budding) Trace /HPF (None Seen)
--- NOTE | 2024-04-07 05:55 | ER ---
Nurse's Notes [facility] Name: Becka Lorenzo Age: 48 yrs Sex: Female : 1975 Arrival Date: 04/07/2024 Time: 02:16 Bed Treatment Private MD: Diagnosis: Other specified diabetes mellitus with hyperglycemia;Type 2 diabetes mellitus with hyperglycemia;UTI/ Urinary tract infection, site not specified;Diabetes mellitus type II new onset Presentation: 04/07 02:34 Chief complaint: Patient states: Yesterday i went to the clinic for a uti and i was kd3 very thirsty. They decided to check my blood sugar and it was 318. They told me i am diabetic. I checked my blood sugar this morning and it was 379. I am worried that something bad will happened. Coronavirus screen: Vaccine status: Patient reports receiving the 2nd dose of the covid vaccine. Ebola Screen: No symptoms or risks identified at this time. Initial Sepsis Screen: Does the patient meet any 2 criteria? No. Patient's initial sepsis screen is negative. Does the patient have a suspected source of infection? No. Patient's initial sepsis screen is negative. Risk Assessment: Do you want to hurt yourself or someone else? Patient reports no desire to harm self or others. Onset of symptoms was April 07, 2024. 02:34 Method Of Arrival: Ambulatory kd3 02:34 Acuity: LOW 4 kd3 Triage Assessment: 02:38 Headache History: Denies prior headaches. General: Appears in no apparent distress. kd3 Behavior is anxious. Neuro: Level of Consciousness is awake, alert, obeys commands, Oriented to person, place, time, situation. 05:41 Pain: Pain currently is 8 out of 10 on a pain scale. Pain began gradually, Also kd3 complains of no other associated symptoms. Historical: - Allergies: 02:38 Amoxicillin; kd3 02:38 Hydrocodone-Acetaminophen; kd3 02:38 Morphine; kd3 02:38 PENICILLINS; kd3 - PMHx: 02:38 Anxiety; kd3 - PSHx: 02:38 section; kd3 - Immunization history:: Adult Immunizations up to date. - Infectious Disease History:: Denies. - Social history:: Smoking status: Patient denies any tobacco usage or history of. - Family history:: not pertinent. Screenin:27 [facility] ED Fall Risk Assessment (Adult) History of falling in the last 3 months, kl including since admission No falls in past 3 months (0 pts) Confusion or Disorientation No (0 pts) Intoxicated or Sedated No (0 pts) Impaired Gait No (0 pts) Mobility Assist Device Used No (0 pt) Altered Elimination No (0 pt) Score/Fall Risk Level 0 - 2 = Low Risk Oriented to surroundings, Maintained a safe environment. Abuse screen: Denies threats or abuse. Nutritional screening: No deficits noted. Tuberculosis screening: No symptoms or risk factors identified. Assessment: 03:26 General: Appears in no apparent distress. Behavior is calm, cooperative. Pain: Denies kl pain. Neuro: No deficits noted. Cardiovascular: No deficits noted. Respiratory: No deficits noted. GI: No deficits noted. No signs and/or symptoms were reported involving the gastrointestinal system. : Reports urinary frequency. EENT: No deficits noted. Derm: No deficits noted. No signs and/or symptoms reported regarding the dermatologic system. Musculoskeletal: No deficits noted. No signs and/or symptoms reported regarding the musculoskeletal system. Vital Signs: 02:27 BP 139 / 87; Pulse 91; Resp 16; Temp 98.2(O); Pulse Ox 96% on R/A; Weight 112.04 kg; kd3 Height 5 ft. 2 in. ; 05:41 BP 127 / 59; Pulse 87; Resp 17; Pulse Ox 98% on R/A; kd3 02:27 Body Mass Index 45.18 (112.04 kg, 157.48 cm) kd3 [place] Coma Score: 1220 02:45 Eye Response: spontaneous(4). Motor Response: obeys commands(6). Verbal Response: sp4 oriented(5). Total: 15. NIH Stroke Scale Scores: 02:45 NIHSS Score: 0 sp4 ED Course: 04/07 02:20 Patient arrived in ED. gm2 02:31 Berhane Charles MD is Attending Physician. sp4 02:38 Triage completed. kd3 02:38 Arm band placed on right wrist. kd3 03:26 CBC with Diff Sent. kl 03:26 CMP Sent. kl 03:26 Lipase Sent. kl 03:26 No provider procedures requiring assistance completed. Inserted saline lock: 22 gauge kl in left forearm, using aseptic technique. Blood collected. Flushed with 10 mL NS. 03:27 Patient has correct armband on for positive identification. Bed in low position. Call kl light in reach. Side rails up X 1. Door closed. Noise minimized. Warm blanket given. 04:24 Nadege Lara, RN is Primary Nurse. kd3 04:41 Urinalysis W/Microscopic Sent. kd3 05:52 Deonte Alvarado DO is Referral Physician. sp4 06:05 Provided Education on: medications . kd3 06:05 IV discontinued, intact, bleeding controlled, No redness/swelling at site. Pressure kd3 dressing applied. Administered Medications: 03:26 Drug: NS 0.9% IV 1000 ml IV at 1 bolus Per protocol; to be given as a bolus over 60 kl minutes Route: IV; Rate: 1 bolus; Site: left forearm; Medication: 05:41 VIS not applicable for this client. kd3 Point of Care Testing: Blood Glucose: 02:27 Blood Glucose: 303 mg/dL; kd3 Ranges: Outcome: 05:41 Condition: stable kd3 05:54 Discharge ordered by MD. sp4 06:04 Discharged to home ambulatory, with family, kd3 06:04 Discharge instructions given to patient, Instructed on discharge instructions, follow up and referral plans. medication usage, Demonstrated understanding of instructions, follow-up care, medications, Prescriptions given X 4, 06:05 Patient left the ED. kd3 NIH Stroke Scale - NIH Stroke Score Date: 04/08/2024 Time: 02:45 Total Score = 0 10. Dysarthria (speech clarity - read or repeat words) - 0(Normal) 11. Extinction and Inattention (visual/tactile/auditory/spatial/personal) - 0(No abnormality) 1a. Level of Consciousness (LOC) - 0(Alert) 1b. Level of Consciousness (LOC) (Month \T\ Age) - 0(Both) 1c. LOC Commands (Open \T\ Closes Eyes/Huc) - 0(Both) 2. Best Gaze (Lateral Gaze Paresis) - 0(Normal) 3. Visual Field Loss - 0(No visual loss) 4. Facial Palsy - 0(Normal) 5a. Left Arm: Motor (10-second hold) - 0(No drift) 5b. Right Arm: Motor (10-second hold) - 0(No drift) 6a. Left Leg: Motor (5-second hold - always test supine) - 0(No drift) 6b. Right Leg: Motor (5-second hold - always test supine) - 0(No drift) 7. Limb Ataxia (finger/nose \T\ heel/mahajan - test with eyes open) - 0(Absent) 8. Sensory Loss (pinprick arms/legs/face) - 0(Normal) 9. Best Language: Aphasia (description/naming/reading) - 0(No aphasia) Initials: sp4 Addendum: 04/10/2024 14:14 Addendum: Culture Results: Positive urine culture. No further action required. iw Bacteria sensitive to prescribed antibiotic. Signatures: Maranda Christian RN RN kl Williams, Irene, RN RN iw Doucette, Kyli, RN RN kd3 Berhane Charles MD MD sp4 Savita Nelson gm2
--- NOTE | 2024-04-07 05:55 | EDPHYS ---
Physician Documentation [facility] Name: Becka Lorenzo Age: 48 yrs Sex: Female : 1975 Arrival Date: 04/07/2024 Time: 02:16 Bed Treatment Private MD: ED Physician Berhane Charles HPI: 04/07 02:31 This 48 yrs old Female presents to ER via Unassigned with complaints of High sp4 Blood Sugar, Headache, Blurred Vision. 04/08 02:45 48-year-old female presents with complaint of elevated blood sugar headache sp4 and blurry vision.. 02:45 No prior history of diabetes, patient reports blood sugars have been above 300 at home sp4 in the last 2 days. Historical: - Allergies: 04/07 02:38 Amoxicillin; kd3 02:38 Hydrocodone-Acetaminophen; kd3 02:38 Morphine; kd3 02:38 PENICILLINS; kd3 - PMHx: 02:38 Anxiety; kd3 - PSHx: 02:38 section; kd3 - Immunization history:: Adult Immunizations up to date. - Infectious Disease History:: Denies. - Social history:: Smoking status: Patient denies any tobacco usage or history of. - Family history:: not pertinent. ROS: 04/08 02:45 Constitutional: Negative for fever, chills, and weight loss, positive elevated blood sp4 sugars positive headache positive blurry vision Eyes: Negative for injury, pain, redness, and discharge, ENT: Negative for injury, pain, and discharge, Neck: Negative for injury, pain, and swelling, Cardiovascular: Negative for chest pain, palpitations, and edema, Respiratory: Negative for shortness of breath, cough, wheezing, and pleuritic chest pain, Abdomen/GI: Negative for abdominal pain, nausea, vomiting, diarrhea, and constipation, Back: Negative for injury and pain, : Negative for injury, bleeding, discharge, and swelling, MS/Extremity: Negative for injury and deformity, Skin: Negative for injury, rash, and discoloration, Neuro: Negative for headache, weakness, numbness, tingling, and seizure, Psych: Negative for depression, anxiety, All other systems are negative, Exam: 02:45 Constitutional: This is a well developed, well nourished patient who is awake, alert, sp4 and in no acute distress. Head/Face: Normocephalic, atraumatic. Eyes: Pupils equal round and reactive to light, extra-ocular motions intact. Lids and lashes normal. Conjunctiva and sclera are not injected. Cornea within normal limits. Periorbital areas with no swelling, redness, or edema. ENT: Nares patent. No nasal discharge, no septal abnormalities noted. Tympanic membranes are normal and external auditory canals are clear. Oropharynx with no redness, swelling, or masses, exudates, or evidence of obstruction, uvula midline. Mucous membranes moist. Neck: Trachea midline, no thyromegaly or masses palpated, and no cervical lymphadenopathy. Supple, full range of motion without nuchal rigidity, or vertebral point tenderness. Chest/axilla: Normal chest wall appearance and motion. Nontender with no deformity. No lesions are appreciated. Cardiovascular: Regular rate and rhythm with a normal S1 and S2. No gallops, murmurs, or rubs. Normal PMI, no JVD. No pulse deficits. Respiratory: Lungs have equal breath sounds bilaterally, clear to auscultation and percussion. No rales, rhonchi or wheezes noted. No increased work of breathing, no retractions or nasal flaring. Abdomen/GI: Soft, with normal bowel sounds. No distension or tympany. No guarding or rebound. No evidence of tenderness throughout. Back: No spinal tenderness. No costovertebral tenderness. Skin: Warm, dry with normal turgor. Normal color with no rashes, no lesions, and no evidence of cellulitis. MS/ Extremity: Pulses equal, no cyanosis. Neurovascular intact. Full, normal range of motion. Neuro: Awake and alert, GCS 15, oriented to person, place, time, and situation. Cranial nerves II-XII grossly intact. Motor strength 5/5 in all extremities. Sensory grossly intact. Psych: Awake, alert, with orientation to person, place and time. Behavior, mood, and affect are within normal limits Vital Signs: 04/07 02:27 BP 139 / 87; Pulse 91; Resp 16; Temp 98.2(O); Pulse Ox 96% on R/A; Weight 112.04 kg; kd3 Height 5 ft. 2 in. ; 05:41 BP 127 / 59; Pulse 87; Resp 17; Pulse Ox 98% on R/A; kd3 02:27 Body Mass Index 45.18 (112.04 kg, 157.48 cm) kd3 NIH Stroke Scale Scores: 04/08 02:45 NIHSS Score: 0 sp4 [place] Coma Score: 02:45 Eye Response: spontaneous(4). Motor Response: obeys commands(6). Verbal Response: sp4 oriented(5). Total: 15. MDM: 04/07 02:32 Medical Screening Exam initiated sp4 04/08 02:45 Differential diagnosis: [place]'s syndrome, diabetes insipidus, DKA, hyperglycemia, sp4 hyperthyroidism. Data reviewed: vital signs, nurses notes, lab test result(s), CBC, electrolytes, hepatic panel, urinalysis. Consideration of Admission/Observation Escalation of care including admission/observation considered. ED course: Patient indeed has a new onset diabetes mellitus type 2. Patient prescribed metformin, also glipizide, advised to see primary care physician within the next 30 days for diabetes management. Additionally prescribed cephalexin for UTI and Diflucan to prevent yeast infection. 04/07 02:46 Order name: Glucose, Ancillary Testing; Complete Time: 03:03 [facility] 04/07 03:03 Order name: CBC with Diff; Complete Time: 04:02 4 04/07 03:03 Order name: CMP; Complete Time: 04:02 4 04/07 03:03 Order name: Lipase; Complete Time: 04:02 sp4 04/07 03:04 Order name: Urinalysis W/Microscopic; Complete Time: 05:45 4 04/07 05:05 Order name: Urine Culture [facility] 04/07 03:03 Order name: IV Saline Lock; Complete Time: 04:41 sp4 04/07 03:03 Order name: Labs collected and sent; Complete Time: 03:26 sp4 04/07 05:45 Order name: Accucheck Blood Glucose; Complete Time: 05:54 sp4 Administered Medications: 04/07 03:26 Drug: NS 0.9% IV 1000 ml IV at 1 bolus Per protocol; to be given as a bolus over 60 kl minutes Route: IV; Rate: 1 bolus; Site: left forearm; Point of Care Testing: Blood Glucose: 02:27 Blood Glucose: 303 mg/dL; kd3 Ranges: Critical Glucose Levels:Adult <50 mg/dl or >400 mg/dl <40 mg/dl or >180 mg/dl Disposition: 04/08 02:49 Chart complete. sp4 Disposition Summary: 04/07/24 05:54 Discharge Ordered Notes: Location: Home sp4 Problem: new sp4 Symptoms: have improved sp4 Condition: Stable sp4 Diagnosis - Other specified diabetes mellitus with hyperglycemia sp4 - Type 2 diabetes mellitus with hyperglycemia sp4 - UTI/ Urinary tract infection, site not specified sp4 - Diabetes mellitus type II new onset sp4 Followup: sp4 - With: Deonte Alvarado DO - When: 7 - 10 days - Reason: Recheck today's complaints Discharge Instructions: - Discharge Summary Sheet sp4 - Type 2 Diabetes Mellitus, Diagnosis, Adult sp4 - Diabetes Mellitus and Nutrition, Adult sp4 Forms: - Patient Portal Instructions sp4 Prescriptions: - Cephalexin 500 mg Oral Capsule - take 1 capsule ORAL route every 12 hours for 10 days; 20 capsule; Refills: 0, sp4 Product Selection Permitted - Fluconazole 200 mg Oral tablet - take 1 tablet ORAL route once daily for 10 days; 10 tablet; Refills: 0, Product sp4 Selection Permitted - Glipizide 5 mg Oral tablet - take 1 tablet ORAL route once daily before a meal; 90 tablet; Refills: 0, sp4 Product Selection Permitted - Metformin 1,000 mg Oral tablet - take 1 tablet ORAL route every 12 hours with morning and evening meals; 180 sp4 tablet; Refills: 0, Product Selection Permitted NIH Stroke Scale - NIH Stroke Score Date: 04/08/2024 Time: 02:45 Total Score = 0 10. Dysarthria (speech clarity - read or repeat words) - 0(Normal) 11. Extinction and Inattention (visual/tactile/auditory/spatial/personal) - 0(No abnormality) 1a. Level of Consciousness (LOC) - 0(Alert) 1b. Level of Consciousness (LOC) (Month \T\ Age) - 0(Both) 1c. LOC Commands (Open \T\ Closes Eyes/Ad Trafficker) - 0(Both) 2. Best Gaze (Lateral Gaze Paresis) - 0(Normal) 3. Visual Field Loss - 0(No visual loss) 4. Facial Palsy - 0(Normal) 5a. Left Arm: Motor (10-second hold) - 0(No drift) 5b. Right Arm: Motor (10-second hold) - 0(No drift) 6a. Left Leg: Motor (5-second hold - always test supine) - 0(No drift) 6b. Right Leg: Motor (5-second hold - always test supine) - 0(No drift) 7. Limb Ataxia (finger/nose \T\ heel/mahajan - test with eyes open) - 0(Absent) 8. Sensory Loss (pinprick arms/legs/face) - 0(Normal) 9. Best Language: Aphasia (description/naming/reading) - 0(No aphasia) Initials: sp4 Signatures: Dispatcher [employer] EDMS Maranda Christian RN RN Nadege Carlin RN RN kd3 Berhane Charles MD MD sp4 Corrections: (The following items were deleted from the chart) 04/07 03:04 03:04 Urinalysis W/Microscopic+U.LAB.BRZ ordered. EDMS EDMS
[2024-04-07 06:12] VITALS: TEMP 98.2
[2024-04-07 06:13] VITALS: BP 127/59; O2SAT 98
== END 2024-04-07 06:05 | disposition home or self-care (01) ==
LOC: ER 02:16
DX: E13.65 Other specified diabetes mellitus with hyperglycemia (principal); F41.9 Anxiety disorder, unspecified; Z88.0 Allergy status to penicillin; Z88.5 Allergy status to narcotic agent; Z88.1 Allergy status to other antibiotic agents
CPT/HCPCS: 87088; 85025; 81001; 87086; 36415; 82947; 87077; 87186; 83690; 80053; 99284; J7030